=== PATIENT | male | born 1975 | race Caucasian/White ===

== ENCOUNTER 2020-01-16 16:20 | Inpatient (IN) | payer BC ==
[~2020-01-16 16:20] MED LIST: DEXTROSE 5% IN WATER 1,000 ML with POTASSIUM CHLORIDE 110 MEQ, MAGNESIUM SULFATE 16 MEQ... IV ONE; DEXTROSE 5% IN WATER 1,000 ML with POTASSIUM CHLORIDE 25 MEQ, SODIUM CHLORIDE 2.5MEQ/ML... IV ONE; DILTIAZEM 125 MG in SODIUM CHLORIDE 0.9% 100 ML IV ONE; INSULIN REGULAR 100 UNIT in SODIUM CHLORIDE 0.9% 100 ML IV ONE; NITROGLYCERIN-D5W PMX 50 MG in DEXTROSE/WATER 1 250ML.BAG IV ONE; NOREPINEPHRINE 4 MG in SODIUM CHLORIDE 0.9% 250 ML IV ONE
[2020-01-16] MEDS ORDERED: DEXTROSE 5% IN WATER 50 ML BAG ONE (16:28)
[2020-01-16] MEDS ORDERED: DEXTROSE 5% IN WATER 250 ML BAG IV ONE (16:28)
[2020-01-16] MEDS ORDERED: AMIODARONE 50 MG/ML 3 ML VIAL IV ONE ×2 (16:28)
[2020-01-16] MEDS ORDERED: HEPARIN SODIUM,PORCINE 5,000 UNIT/ML 1 ML VIAL IV STA (16:39)
[2020-01-16] MEDS ORDERED: DEXTROSE 5% IN WATER 100 ML with AMIODARONE 150 MG IV ONE ×2 (16:39→17:30)
[2020-01-16] MEDS ORDERED: ATORVASTATIN 80 MG TAB PO STA (16:40)
--- NOTE | 2020-01-16 16:49 | ED ---
Chest Pain HPI - General Chief Complaint: Chest Pain Stated Complaint: Stemi Time Seen by Provider: 01/16/20 16:23 Source: patient, family, EMS, RN notes reviewed Mode of arrival: EMS Limitations: no limitations - History of Present Illness Initial Comments: Is a 44-year-old male with a benign past medical history other than being a smoker who apparently started having some chest discomfort intermittently yesterday but this morning started having pain which progressed throughout the day while he was at work. We got home he stated the pain was very severe retrosternal he did have some nausea vomiting. EMS was called. In route he did get aspirin and nitroglycerin he did so evidence of hyperacute T waves on his EKG from EMS. By time he got here the initial set normalized. He then went into a witnessed V. fib arrest with about 1 minute of CPR followed by 200 J of fibrillation. He did respond to this. He was awake and alert thereafter. In itial IV med management was performed. A STEMI alert was called. MD Complaint: chest pain - Related Data Home Medications Medication Instructions Recorded Confirmed No Known Home Medications 01/16/20 01/16/20 Allergies Allergy/AdvReac Type Severity Reaction Status Date / Time No Known Allergies Allergy Verified 01/16/20 16:48 Review of Systems ROS Statement: Those systems with pertinent positive or pertinent negative responses have been documented in the HPI. ROS Other: All systems not noted in ROS Statement are negative. EKG Findings - EKG Results: EKG: interpreted by ERMD, sinus rhythm (Initial EKG showed a sinus rhythm with 54 NJ interval 140 QRS duration 92 QT since QTC 476/451 nonspecific T-wave configuration evidence of inferior ischemia. This is different than those submitted by EMS.) General Exam - General Exam Comments Initial Comments: This is a well-developed well-nourished initially awake alert oriented 3 male Limitations: no limitations General appearance: alert, anxious Head exam: Present: atraumatic, normocephalic, normal inspection Eye exam: Present: normal appearance, PERRL, EOMI. Absent: scleral icterus, conjunctival injection, periorbital swelling ENT exam: Present: normal exam, mucous membranes moist Neck exam: Present: normal inspection. Absent: tenderness, meningismus, lymphadenopathy Respiratory exam: Present: normal lung sounds bilaterally. Absent: respiratory distress, wheezes, rales, rhonchi, stridor Cardiovascular Exam: Present: normal rhythm, bradycardia, normal heart sounds. Absent: systolic murmur, diastolic murmur, rubs, gallop, clicks GI/Abdominal exam: Present: soft, normal bowel sounds. Absent: distended, tenderness, guarding, rebound, rigid Extremities exam: Present: normal inspection, full ROM, normal capillary refill. Absent: tenderness, pedal edema, joint swelling, calf tenderness Back exam: Present: normal inspection Neurological exam: Present: alert, oriented X3, CN II-XII intact Psychiatric exam: Present: normal affect, normal mood Skin exam: Present: warm, dry, intact, normal color. Absent: rash Course Vital Signs 01/16/20 01/16/20 01/16/20 16:21 16:37 16:45 Temperature 97.9 F Pulse Rate 58 L 68 62 Respiratory 18 18 18 Rate Blood Pressure 126/88 140/101 133/92 O2 Sat by Pulse 100 100 100 Oximetry - Reevaluation(s) Reevaluation #1: 01/16/20 16:52 The patient during my initial exam was noted to become unresponsive and on a monitor. Be an ventricular fibrillation arrest. CPR was initially started patient was defibrillated after about a minute using 200 J. CPR was continued the patient however did awaken and did try to get up off the emergency department stretcher. He was placed back in a supine position he was awake alert oriented 3. Reevaluation #2: 01/16/20 16:53 I did discuss the case both with Dr. Foster, Dr. Kong both of whom came to the emergency department and Dr. Justice. Patient will be going to the catheterization lab. Patient's is present. 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 Chest Pain MDM - MDM Did review the imaging no definite acute findings. Labs are pending. Patient remains awake alert oriented 3. Sclerae some chest pain however he is a sinus rhythm. Repeat EKG after the defibrillation showed a sinus rhythm a 72. Interval 154 QRS 94 QT since QTC 364/[address] elevation anterior lateral leads. This is consistent with acute ID/STEMI Critical Care Time Critical Care Time: Yes Critical Care Time: 34 minutes of critical care time which includes initial presentation with history physical labs x-rays of the CPR and defibrillation as well as discussed the wall. Physicians. Also included discussion with the patient family regarding findings. Documentation of the above. Disposition Clinical Impression: ST elevation myocardial infarction (STEMI), Cardiac arrest with ventricular fibrillation, Acute coronary syndrome Disposition: ADMITTED IP TO THIS HOSP Condition: Critical
[2020-01-16 16:51] LABS: Basophils # (A) 0.1 k/uL (0-0.2); Basophils % (A) 1 %; Eosinophils # (A) 0.1 k/uL (0-0.7); Eosinophils % (A) 1 %; HCT 45.9 % (39.0-53.0); HGB 14.9 gm/dL (13.0-17.5); Lymphocytes # (A) 4.6 k/uL (1.0-4.8); Lymphocytes % (A) 50 %; MCH 31.2 pg (25.0-35.0); MCHC 32.5 g/dL (31.0-37.0); MCV 95.8 fL (80.0-100.0); Mean Platelet Volume 8.2; Monocytes # (A) 0.5 k/uL (0-1.0); Monocytes % (A) 5 %; Neutrophils # (A) 3.8 k/uL (1.3-7.7); Neutrophils % (A) 41 %; Platelet Count 241 k/uL (150-450); RBC 4.79 m/uL (4.30-5.90); RDW 12.9 % (11.5-15.5); WBC 9.3 k/uL (3.8-10.6)
[2020-01-16] MEDS ORDERED: LIDOCAINE 1% INJ 10MG/ML (20 ML MDV) ONE (16:55)
--- NOTE | 2020-01-16 16:57 | XR ---
EXAMINATION TYPE: XR chest 1V DATE OF EXAM: 01/16/2020 COMPARISON: NONE HISTORY: Chest pain. ST elevated myocardial infarction. TECHNIQUE: Single AP portable frontal upright view of the chest is obtained. FINDINGS: Overlying EKG leads. There is no focal air space opacity, pleural effusion, or pneumothora x seen. The cardiac silhouette size is within normal limits. The osseous structures are intact. IMPRESSION: No acute process.
[2020-01-16] MEDS ORDERED: SODIUM CHLORIDE 0.9% 1,000 ML IV ONE (17:04)
[2020-01-16] MEDS ORDERED: LIDOCAINE 1% INJ 10MG/ML (20 ML MDV) SQ ONE (17:05)
[2020-01-16] MEDS ORDERED: MIDAZOLAM 2 MG/2 ML VIAL IVP ONE (17:06)
--- NOTE | 2020-01-16 17:07 | P.CRDCN ---
History of Present Illness History of present illness: This is Kori Horowitz PA-C dictating a consult on this patient The patient was interviewed and examined by me as well as by Dr. Foster Case discussed with Dr. Foster and he agrees with the plan of care HPI Patient is a 44-year-old male with a history of smoking and alcohol use who presented with complaints of chest discomfort. He states that yesterday he started feeling intermittent chest discomfort which progressively became more severe. This morning when he went to work he began again and it became unbearable so he called EMS. Initial EKG revealed hyperacute T waves in the precordial leads. EKG upon arrival to the emergency department showed ST elevation in V2 and T-wave inversions in lead 3 and aVF. In the emergency department he had a V. fib VF arrest and a 200 J shock was given. Subsequent EKG showed ST elevation in the precordial leads and ST depression inferiorly. Patient seen and examined in the emergency department. States he is still having chest pain. Patient denies history of diabetes or hypertension, denies history of CAD or prior [place] He is a current smoker states he does drink alcohol daily ROS: No fevers, chills or rigors, no cough, phlegm or expectoration, no nausea, vomiting or diarrhea, no hematuria, dysuria, no musculoskeletal complaints, no strokes or seizures, no skin lesions. EXAMINATION: Patient is afebrile, pulse in the 60s, respirations 18, blood pressure 133/92, oxygen saturation 100% on room air Patient seen and examined in the emergency department, appears uncomfortable Lungs are rhonchorous bilaterally Heart is regular, no audible murmurs REVIEW OF LABS, ECG & MEDICAL DATA WBC 9.3, hemoglobin 14.9, platelets 241 IMPRESSION / ASSESSMENT: #[address] elevation [place] #2 ventricular fibrillation status post successful defibrillation #3 current smoker #4 daily alcohol use PLAN: He will undergo emergent cardiac catheterization He is on heparin He has been given statins, aspirin and beta blockers Medications and Allergies Home Medications Medication Instructions Recorded Confirmed Type No Known Home Medications 01/16/20 01/16/20 History Allergies Allergy/AdvReac Type Severity Reaction Status Date / Time No Known Allergies Allergy Verified 01/16/20 16:48 Physical Exam Vitals: Vital Signs Temp Pulse Resp BP Pulse Ox 01/16/20 16:45 62 18 133/92 100 01/16/20 16:37 68 18 140/101 100 01/16/20 16:21 97.9 F 58 L 18 126/88 100 Intake and Output 01/16/20 01/16/20 01/16/20 06:59 14:59 22:59 Other: Weight 80.739 kg Results 01/16/20 16:46 CBC 01/16/20 Range/Units 16:46 WBC 9.3 (3.8-10.6) k/uL RBC 4.79 (4.30-5.90) m/uL Hgb 14.9 (13.0-17.5) gm/dL Hct 45.9 (39.0-53.0) % Plt Count 241 (150-450) k/uL Intake and Output 01/16/20 01/16/20 01/16/20 06:59 14:59 22:59 Other: Weight 80.739 kg Patient Weight 01/17/20 06:59 Weight 80.739 kg 01/16/20 16:46
[2020-01-16] MEDS ORDERED: fentaNYL (PF) 50 MCG/ML 2 ML AMP ONE (17:08)
[2020-01-16] MEDS ORDERED: fentaNYL (PF) 50 MCG/ML 2 ML AMP IVP ONE (17:09)
[2020-01-16] MEDS ORDERED: SODIUM CHLORIDE 0.9% 500 ML 500 ML IV ONE (17:11)
[2020-01-16 17:12] LABS: ALT 26 U/L (4-49); AST 24 U/L (17-59); African American GFR (CKD) >90 (>60 ml/min/1.73 sqM); Alkaline Phosphatase 56 U/L (38-126); Anion Gap 11 mmol/L; Blood Urea Nitrogen 10 mg/dL (9-20); Calcium 8.9 mg/dL (8.4-10.2); Carbon Dioxide 21 mmol/L (22-30); Chloride 104 mmol/L (98-107); Glucose 118 mg/dL (74-99); Magnesium 2.1 mg/dL (1.6-2.3); Non-African American GFR(CKD) >90 (>60 ml/min/1.73 sqM); Potassium 3.3 mmol/L (3.5-5.1); Sodium 136 mmol/L (137-145); Total Bilirubin 0.9 mg/dL (0.2-1.3); Total Protein 6.7 g/dL (6.3-8.2)
[2020-01-16 17:18] LABS: D-Dimer 0.24 mg/L FEU (<0.60); Partial Thromboplastin Time 22.3 sec (22.0-30.0); Prothrombin Time 10.1 sec (9.0-12.0)
[2020-01-16] MEDS ORDERED: POTASSIUM CHLORIDE 20 MEQ in WATER FOR INJECTION 1 100ML.BAG IVPB STA ×2 (17:29→17:46)
[2020-01-16] MEDS ORDERED: HEPARIN SODIUM,PORCINE 5,000 UNIT/ML 1 ML VIAL IV PRN (17:37)
[2020-01-16] MEDS ORDERED: IOPAMIDOL-370 100ML BTL INJ ONE (17:40)
[2020-01-16 17:42] LABS: Creatine Kinase MB 0.5 ng/mL (0.0-2.4); Troponin I 0.029 ng/mL (0.000-0.034)
[2020-01-16] MEDS ORDERED: HEPARIN SOD,PORK IN 0.45% NACL 25,000 UNIT in 0.45% NACL 1 250ML.BAG IV SCH (17:45)
[2020-01-16] MEDS ORDERED: HEPARIN SODIUM 1,000 UN/ML (10ML VL) IV ONE (17:45)
[2020-01-16] MEDS ORDERED: AMIODARONE 360 MG in DEXTROSE 5% IN WATER 200 ML IV ONE ×2 (17:45)
[2020-01-16 18:06] LABS: Glucose,Whole Blood 87 mg/dL (75-99)
[2020-01-16] MEDS ORDERED: MD COMMUNICATION TO PHARMACY 1 EACH MISC PO ONE ×4 (18:20→18:26)
[2020-01-16] MEDS ORDERED: ACETAMINOPHEN TAB 325 MG TAB PO PRN (18:31)
[2020-01-16] MEDS ORDERED: MELATONIN 3 MG TABLET PO PRN (18:31)
[2020-01-16] MEDS ORDERED: ALPRAZolam 0.25 MG TAB PO PRN (18:31)
[2020-01-16] MEDS ORDERED: NALOXONE 0.4 MG/ML 1 ML VIAL IV PRN (18:31)
[2020-01-16] MEDS: SODIUM CHLORIDE 0.9% 1,000 ML IV SCH (18:49)
[2020-01-16] MEDS ORDERED: LORazepam 2 MG/ML INJ IV PRN (18:50)
[2020-01-16] MEDS ORDERED: THIAMINE 100 MG/ML 2 ML VIAL IM STA (18:50)
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
--- NOTE | 2020-01-16 19:09 | CC ---
CARDIAC CATHETERIZATION REPORT DATE OF SERVICE: 01/16/2020 PROCEDURE: Left heart catheterization and coronary angiography. PERFORMED BY: Dr. Danita Kong. Moderate conscious sedation time was 40 minutes. Patient was administered Versed and fentanyl. His oxygenation, hemodynamics and EKG were monitored closely. CLINICAL INFORMATION: Mr. 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 He presented to the hospital with chest pain, and in the ER while he was being evaluated he went into ventricular fibrillation requiring to be shocked. He had prominent precordial T- waves, and after the defibrillation his EKG almost normalized completely. Ischemia was thought to be suspected. Based on the EKG it was somewhat unclear. He was advised prompt cardiac catheterization and brought in for the procedure expeditiously. Risks, benefits and options were discussed with the patient's and the patient himself. PROCEDURE NOTE: Under local anesthesia and strict aseptic precautions, a 6-Kiswahili introducer was placed in the right femoral artery. Using standard right and left Kaylen guide catheters, I performed coronary angiography. Using the same right Kaylen catheter, I checked LV pressures but did not perform LV gram. The sheath was then sutured and he was sent to the ICU on a heparin drip and amiodarone drip in preparation for aortocoronary bypass surgery tomorrow morning. An echo and carotid Doppler will be performed tonight. CARDIAC CATHETERIZATION FINDINGS: The left ventricular end-diastolic pressure was about 14 mmHg without any gradient across the aortic valve. CORONARY ANGIOGRAPHY FINDINGS: RIGHT CORONARY ARTERY: This is a super dominant vessel which is large in caliber and distribution and distally bifurcates into a large PDA and PLV. RCA has no significant disease in the proximal, mid and distal portions. After bifurcation the PLV branch has a 70% to 80% focal lesion, and beyond this lesion there is a lot of myocardium being supplied with the PLV branch. PDA has about a 30% to 35% narrowing. Right coronary is a super dominant vessel. LEFT MAIN CORONARY ARTERY: This is a short patent vessel, free of significant disease, that bifurcates into LAD and circumflex. LEFT ANTERIOR DESCENDING CORONARY ARTERY: This vessel tarts off as a good-caliber vessel, gives off a large septal branch. Then there is a 60% narrowing in the LAD. It gives off a first diagonal branch which is of fair caliber, has an ostial lesion of 70%, and then the diagonal bifurcates into 2 branches. After the origin of a large septal branch, which is relatively disease-free, there is a 60% LAD disease, then it gives off a first diagonal which has an ostial 70% lesion. Following the first diagonal branch there is a long area of disease with haziness in the LAD and then it gives off a second large diagonal branch. This second large diagonal branch has an independent 90% lesion and the LAD also after the diagonal branch has an independent 80% to 90% lesion. There is haziness with some thrombus, but there is a pretty decent CORNELIA-3 flow in both the vessels. LAD is a large-distribution vessel. Caliber in the distal fourth of the LAD is somewhat smaller and gives off another 2 small diagonal branches. The second diagonal is a very large vessel, supplies a large amount of myocardium. Caliber is at least 2.5 to 3.0 caliber. There is an independent lesion in this diagonal and also in the LAD after the origin of the diagonal, and before the diagonal there is a long area of disease of 80% with haziness. The first diagonal, which is smaller, and second diagonal as well as the LAD are 3 graftable vessels of decent caliber. LEFT POSTERIOR CIRCUMFLEX CORONARY ARTERY: This is a nondominant vessel. Actually it gives off a first obtuse marginal which almost looks like a ramus, and this ramus has an independent long 80% to 85% lesion, and the vessel is of good caliber and graftable. The circumflex itself runs in the AV groove, is small in caliber and distribution, has limited myocardium being supplied by it. Left ventriculogram was not performed. FINAL IMPRESSION: This patient has significant diffuse triple-vessel disease. He presented with acute ischemia, ventricular fibrillation, and sinus rhythm was restored. He is hemodynamically stable. EKG has normalized. He has no chest pain. There is, however, significant lesion in the LAD. This is a highly diseased vessel. There is a 50% to 60% lesion after the first septal, first diagonal has an independent 70% lesion, then there is a long disease in the LAD of 80% to 90%, and LAD after the origin of the second diagonal and the second diagonal itself at its origin have 80% lesion individually. The ramus intermedius has a very tight lesion. Circumflex is small in caliber and distribution with no significant disease. The dominant RCA has a large PLV branch with 80% stenosis. RECOMMENDATIONS: After substantial deliberation and discussion, I am recommending aortocoronary bypass surgery with graft to the first diagonal, second diagonal, LAD, ramus intermedius and PLV branch of a super dominant RCA. The patient is pain-free, hemodynamically stable. EKG is normal. There is CORNELIA-3 flow. We can safely heparinize him through the night, place him on an amiodarone drip in view of his ventricular arrhythmias, supplement the potassium and check an echo and carotid tonight. He will benefit from aortocoronary bypass surgery with a complete revascularization, including LAD. I discussed my thoughts in detail with the patient and his and I also talked to Dr. Lorenz. He will review the images at the earliest possibility and will consider surgery first thing in the morning. Should patient have any ischemia tonight, he already has a sheath in place that I have sutured. I will proceed with immediate percutaneous intervention. This plan was discussed with the patient, his , daughter and with Dr. Lorenz, and they are all in agreement. The patient was sent to the ICU in a stable condition. MMODL / IJN: [id number] /
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
[2020-01-16 20:00] LABS: Magnesium 1.9 mg/dL (1.6-2.3)
[2020-01-16 20:57] LABS: Appearance,Urine Clear (Clear); Bilirubin,Urine Negative (Negative); Blood,Urine Negative (Negative); Color,Urine Light Yellow; Glucose,Urine (UA) Negative (Negative); Ketones,Urine Negative (Negative); Leukocyte Esterase,Urine Negative (Negative); Nitrite,Urine Negative (Negative); PH, Urine 5.5 (5.0-8.0); Protein,Urine Trace (Negative); Specific Gravity,Urine 1.032 (1.001-1.035); Urobilinogen,Urine <2.0 mg/dL (<2.0)
[2020-01-16] MEDS: FOLIC ACID 1 MG TAB PO SCH (21:00)
[2020-01-16] MEDS ORDERED: MUPIROCIN 2% OINT 22 GM TUBE NASAL SCH (21:00)
[2020-01-16] MEDS: PANTOPRAZOLE 40 MG TABLET PO STA ×2 (21:00→21:01)
[2020-01-16] MEDS ORDERED: METOPROLOL TARTRATE 12.5 MG TAB PO SCH (21:00)
[2020-01-16] MEDS: POTASSIUM CHLORIDE 10 MEQ in WATER FOR INJECTION 1 100ML.BAG IVPB SCH ×2 (21:19→22:16)
[2020-01-16] MEDS: HYDROcodone/APAP 5-325MG 1 EACH TAB PO PRN (21:38)
--- NOTE | 2020-01-16 21:52 | US ---
EXAMINATION TYPE: US carotid duplex BILAT DATE OF EXAM: 01/16/2020 COMPARISON: NONE CLINICAL HISTORY: BYPASS SURGERY IN AM. Bypass surgery in the AM. Smoker. EXAM MEASUREMENTS: RIGHT: Peak Systolic Velocity (PSV) cm/sec ----- Right CCA: 69.9 ----- Right ICA: 78.8 ----- Right ECA: 69.2 ICA/CCA ratio: 1.1 RIGHT: End Diastole cm/sec ----- Right CCA: 25.9 ----- Right ICA: 36.9 ----- Right ECA: 18.6 LEFT: Peak Systolic Velocity (PSV) cm/sec ----- Left CCA: 56.4 ----- Left ICA: 69.2 ----- Left ECA: 56.4 ICA/CCA ratio: 1.2 LEFT: End Diastole cm/sec ----- Left CCA: 16.6 ----- Left ICA: 27.3 ----- Left ECA: 13.7 VERTEBRALS (direction of flow): Right Vertebral: Antegrade Left Vertebral: Antegrade Rhythm: Normal IMPRESSION: INTIMAL THICKENING SEEN BILATERALLY. NO ELEVATED VELOCITIES; NO SIGNIFICANT STENOSIS. INCIDENTAL FINDING LEFT SOFT TISSUES NECK: Hypoechoic area seen left neck measurin.2 CC x 1.2 x 1.0 cm, likely small conglomerate lymph node s. Would advise continued clinical surveillance. If palpable and persistent, CT with contrast charact erization would be advisable.
[2020-01-16] MEDS: AMIODARONE 300 MG in DEXTROSE 5% IN WATER 250 ML IV SCH ×2 (23:17)
[2020-01-17] MEDS: HYDROcodone/APAP 5-325MG 1 EACH TAB PO PRN (01:02)
[2020-01-17] MEDS: LORazepam 2 MG/ML INJ IV PRN (03:14)
[2020-01-17 04:23] LABS: Hepatitis A Antibody IgM Non-Reactive (Non-Reactive); Hepatitis B Core IgM Non-Reactive (Non-Reactive); Hepatitis B Surface Antigen Non-Reactive (Non-Reactive); Hepatitis C IgG Antibody Non-Reactive (Non-Reactive)
[2020-01-17 04:58] LABS: Basophils % (A) 0 %; Eosinophils # (A) 0.1 k/uL (0-0.7); Eosinophils % (A) 2 %; HCT 41.7 % (39.0-53.0); HGB 13.3 gm/dL (13.0-17.5); Lymphocytes # (A) 1.9 k/uL (1.0-4.8); Lymphocytes % (A) 25 %; MCV 96.9 fL (80.0-100.0); Mean Platelet Volume 8.3; Monocytes # (A) 0.3 k/uL (0-1.0); Monocytes % (A) 4 %; Neutrophils % (A) 68 %; Platelet Count 208 k/uL (150-450); RBC 4.31 m/uL (4.30-5.90); WBC 7.4 k/uL (3.8-10.6)
[2020-01-17] MEDS ORDERED: PROTAMINE SULFATE 10 MG/ML 25 ML VIAL IV ONE ×2 (05:00→07:31)
[2020-01-17] MEDS ORDERED: TRANEXAMIC ACID 2,000 MG in SODIUM CHLORIDE 0.9% 80 ML IV ONE (05:00)
[2020-01-17] MEDS ORDERED: NITROGLYCERIN-D5W PMX 25 MG/250 ML BTL IV ONE (05:00)
[2020-01-17] MEDS ORDERED: ALBUMIN HUMAN 5% 500 ML in EMPTY BAG 1 BAG IVPB ONE ×6 (05:00)
[2020-01-17] MEDS ORDERED: CHLORHEXIDINE GLUCONATE 15 ML CUP MUCOUS MEM ONE (05:00)
[2020-01-17] MEDS ORDERED: PAPAVERINE 360 MG in SODIUM CHLORIDE 0.9% 90 ML IV ONE ×2 (05:00→09:55)
[2020-01-17] MEDS ORDERED: METOPROLOL TARTRATE 12.5 MG TAB PO ONE (05:00)
[2020-01-17] MEDS ORDERED: PROTAMINE SULFATE 250 MG in EMPTY BAG 1 BAG IV ONE (05:00)
[2020-01-17] MEDS ORDERED: ATORVASTATIN 10 MG TAB PO ONE (05:00)
[2020-01-17] MEDS ORDERED: HEPARIN SODIUM 1,000 UN/ML (10ML VL) IV ONE (05:00)
[2020-01-17] MEDS ORDERED: ceFAZolin 2 GM in SODIUM CHLORIDE 0.9% 30 ML IVPB ONE (05:00)
[2020-01-17] MEDS ORDERED: HEPARIN SODIUM,PORCINE 5,000 UNIT in SODIUM CHLORIDE 0.9% 500 ML 500 ML IV ONE (05:00)
[2020-01-17] MEDS ORDERED: PHENYLEPHRINE 40 MG in SODIUM CHLORIDE 0.9% 250 ML IV ONE (05:00)
[2020-01-17] MEDS ORDERED: CLEVIDIPINE BUTYRATE 25 MG in EMPTY BAG 1 BAG IV SCH ×2 (05:00→15:43)
[2020-01-17] MEDS ORDERED: MAGNESIUM SULFATE SYG 4.06 MEQ/ML SYRINGE IV ONE (05:00)
[2020-01-17] MEDS ORDERED: ASPIRIN 325 MG TAB PO ONE (05:00)
[2020-01-17] MEDS ORDERED: MANNITOL 25% 12.5 GM/50 ML VIAL IV ONE ×2 (05:00)
[2020-01-17] MEDS ORDERED: CALCIUM CHLORIDE 100 MG/ML 10 ML SYRINGE IVP ONE (05:00)
[2020-01-17] MEDS ORDERED: ceFAZolin 1,000 MG in SODIUM CHLORIDE 0.9% IRRIGATIO 1,000 ML IRRIGATION ONE (05:00)
[2020-01-17] MEDS ORDERED: SODIUM BICARB 8.4% 50 ML SYR (1 MEQ/ML) IV ONE (05:00)
[2020-01-17] MEDS ORDERED: ceFAZolin 2,000 MG in SODIUM CHLORIDE 0.9% 30 ML IVPB ONE (05:00)
[2020-01-17] MEDS ORDERED: ALBUMIN HUMAN 25% 50 ML in EMPTY BAG 1 BAG IVPB ONE (05:00)
[2020-01-17 05:08] LABS: ALT 35 U/L (4-49); AST 56 U/L (17-59); African American GFR (CKD) >90 (>60 ml/min/1.73 sqM); Albumin 3.2 g/dL (3.5-5.0); Alkaline Phosphatase 53 U/L (38-126); Anion Gap 1 mmol/L; Blood Urea Nitrogen 7 mg/dL (9-20); Carbon Dioxide 24 mmol/L (22-30); Chloride 110 mmol/L (98-107); Cholesterol 169 mg/dL (<200); Glucose 104 mg/dL (74-99); HDL Cholesterol 44 mg/dL (40-60); LDL Cholesterol,Calculated 112 mg/dL (0-99); Non-African American GFR(CKD) >90 (>60 ml/min/1.73 sqM); Phosphorus 2.9 mg/dL (2.5-4.5); Potassium 4.3 mmol/L (3.5-5.1); Sodium 135 mmol/L (137-145); Total Bilirubin 1.4 mg/dL (0.2-1.3); Total Protein 5.7 g/dL (6.3-8.2); Triglycerides 63 mg/dL (<150)
[2020-01-17] MEDS ORDERED: PANTOPRAZOLE 40 MG TABLET PO SCH (07:30)
[2020-01-17] MEDS ORDERED: MAGNESIUM SULFATE 4 MEQ/ML 10ML VIAL ONE (07:31)
[2020-01-17] MEDS ORDERED: fentaNYL (PF) 50 MCG/ML 50 ML VIAL ONE (07:31)
[2020-01-17] MEDS ORDERED: PROPOFOL 10 MG/ML 20 ML VIAL IV ONE (07:31)
[2020-01-17] MEDS ORDERED: LIDOCAINE 2% SYG (PF) 100 MG/5 ML ONE (07:31)
[2020-01-17] MEDS ORDERED: NITROGLYCERIN-D5W PMX 50 MG/250 ML BOTTLE IV ONE (07:31)
[2020-01-17] MEDS ORDERED: TRANEXAMIC ACID 1,000 MG/10 ML VIAL ONE (07:31)
[2020-01-17] MEDS ORDERED: MIDAZOLAM 2 MG/2 ML VIAL ONE (07:31)
[2020-01-17] MEDS ORDERED: ELECTROLYTE-R (PH 7.4) 1,000 ML IV.SOLN IV ONE (07:31)
[2020-01-17] MEDS ORDERED: PHENYLEPHRINE-0.9% NACL SYG 1 MG/10 ML SYRINGE ONE (07:31)
[2020-01-17] MEDS ORDERED: CALCIUM CHLORIDE 100 MG/ML 10 ML SYRINGE ONE (07:31)
[2020-01-17] MEDS ORDERED: fentaNYL (PF) 50 MCG/ML 2 ML AMP ONE (07:31)
[2020-01-17] MEDS ORDERED: VECURONIUM 10 MG VIAL IV ONE (07:31)
[2020-01-17] MEDS ORDERED: SODIUM CHLORIDE 0.9% 1,000 ML BAG ONE (07:31)
[2020-01-17] MEDS ORDERED: ePHEDrine SULFATE/0.9% NACL/PF 50 MG/5 ML SYRINGE IV ONE (07:31)
[2020-01-17] MEDS ORDERED: SODIUM CHLORIDE 0.9% 250 ML BAG ONE (07:31)
[2020-01-17] MEDS ORDERED: HEPARIN SODIUM,PORCINE 10,000 UNIT/ML 1 ML VIAL ONE (07:31)
[2020-01-17] MEDS ORDERED: ALBUMIN HUMAN 5% (25gm) 500 ML VIAL IVPB ONE (07:31)
[2020-01-17] MEDS ORDERED: POTASSIUM CHLORIDE OPEN HEART 20 MEQ/50 ML BAG IVPB ONE (07:31)
[2020-01-17] MEDS ORDERED: ATORVASTATIN 80 MG TAB PO SCH (09:00)
[2020-01-17 09:01] LABS: ABG Base Excess -3.2 mmol/L; ABG Glucose Whole Blood 104 mg/dL (75-99); ABG HCO3 22 mmol/L (21-25); ABG Hematocrit 41 % (34.0-46.0); ABG Ionized Calcium 4.7 mg/dL (4.5-5.3); ABG Lactic Acid Whole Blood 0.6 mmol/L (0.5-1.6); ABG PCO2 40 mmHg (35-45); ABG PH 7.35 (7.35-7.45); ABG Potassium Whole Blood 3.9 mmol/L (3.4-4.5); ABG Sodium Whole Blood 139 mmol/L (135-146); ABG TCO2 23 mmol/L (19-24)
[2020-01-17] MEDS ORDERED: SODIUM CHLORIDE 0.9% 500 ML 500 ML with HEPARIN SODIUM,PORCINE 5,000 UNIT IV ONE ×2 (09:55)
[2020-01-17] MEDS ORDERED: ceFAZolin 1,000 MG in SODIUM CHLORIDE 0.9% 1,000 ML IRRIGATION ONE (09:55)
--- NOTE | 2020-01-17 10:00 | ECHOF ---
Referral Reason:BYPASS SURGERY IN AM MEASUREMENTS -------- HEIGHT: 185.4 cm WEIGHT: 80.7 kg BP: 132/93 RVIDd: 3.2 cm (< 3.3) IVSd: 1.2 cm (0.6 - 1.1) LVIDd: 4.6 cm (3.9 - 5.3) LVPWd: 1.1 cm (0.6 - 1.1) IVSs: 1.7 cm LVIDs: 3.1 cm LVPWs: 1.6 cm LA Diam: 3.0 cm (2.7 - 3.8) Ao Diam: 3.8 cm (2.0 - 3.7) AV Cusp: 2.0 cm (1.5 - 2.6) MV EXCURSION: 19.089 mm (> 18.000) MV EF SLOPE: 119 mm/s (70 - 150) EPSS: 0.8 cm MV E Christian: 0.68 m/s MV DecT: 256 ms MV A Christian: 0.55 m/s MV E/A Ratio: 1.23 RAP: 5.00 mmHg RVSP: 28.31 mmHg FINDINGS -------- Sinus rhythm. This was a technically adequate study. The left ventricular size is normal. There is borderline concentric left ventricular hypertrophy. Overall left ventricular systolic function is mild-moderately impaired with, an EF between 40 - 45 % . Apical anterior LV wall motion is hypokinetic. Apical lateral LV wall motion is hypokinetic. Apical inferior LV wall motion is hypokinetic. Apical septum LV wall motion is hypokinetic. The right ventricle is normal in size. Normal LA size by volume 22+/-6 ml/m2. The right atrium is normal in size. The aortic valve is trileaflet and appears structurally normal. The mitral valve is normal. Mild tricuspid regurgitation present. Right ventricular systolic pressure is normal at < 35 mmHg. There is no pulmonic regurgitation present. The aortic root is dilated measuring 3.8cm. Normal inferior vena cava with normal inspiratory collapse consistent with estimated right atrial pre ssure of 5 mmHg. There is no pericardial effusion. CONCLUSIONS -------- 1. Sinus rhythm. 2. This was a technically adequate study. 3. The left ventricular size is normal. 4. There is borderline concentric left ventricular hypertrophy. 5. Overall left ventricular systolic function is mild-moderately impaired with, an EF between 40 - 45 %. 6. Apical anterior LV wall motion is hypokinetic. 7. Apical lateral LV wall motion is hypokinetic. 8. Apical inferior LV wall motion is hypokinetic. 9. Apical septum LV wall motion is hypokinetic. 10. Mild tricuspid regurgitation present. 11. Right ventricular systolic pressure is normal at < 35 mmHg. 12. The aortic root is dilated measuring 3.8cm. 13. Normal inferior vena cava with normal inspiratory collapse consistent with estimated right atrial pressure of 5 mmHg. 14. There is no pericardial effusion. [employer] LEAD: Viviana Soni RDCS
[2020-01-17 11:01] LABS: ABG Base Excess -3.3 mmol/L; ABG Glucose Whole Blood 121 mg/dL (75-99); ABG HCO3 22 mmol/L (21-25); ABG Hematocrit 39 % (34.0-46.0); ABG Ionized Calcium 4.7 mg/dL (4.5-5.3); ABG Lactic Acid Whole Blood 0.7 mmol/L (0.5-1.6); ABG Oxygen Saturation 99.2 % (94-97); ABG PCO2 37 mmHg (35-45); ABG PH 7.37 (7.35-7.45); ABG PO2 164 mmHg (83-108); ABG Potassium Whole Blood 4.1 mmol/L (3.4-4.5); ABG Sodium Whole Blood 139 mmol/L (135-146); ABG TCO2 23 mmol/L (19-24)
[2020-01-17 11:48] LABS: ABG Base Excess 0.1 mmol/L; ABG Glucose Whole Blood 111 mg/dL (75-99); ABG HCO3 24 mmol/L (21-25); ABG Hematocrit 31 % (34.0-46.0); ABG Ionized Calcium 4.1 mg/dL (4.5-5.3); ABG Lactic Acid Whole Blood 0.9 mmol/L (0.5-1.6); ABG Oxygen Saturation 99.9 % (94-97); ABG PCO2 36 mmHg (35-45); ABG PH 7.44 (7.35-7.45); ABG Potassium Whole Blood 3.8 mmol/L (3.4-4.5); ABG Sodium Whole Blood 139 mmol/L (135-146); ABG TCO2 25 mmol/L (19-24)
[2020-01-17 12:23] LABS: ABG Base Excess -1.7 mmol/L; ABG Glucose Whole Blood 162 mg/dL (75-99); ABG HCO3 25 mmol/L (21-25); ABG Hematocrit 31 % (34.0-46.0); ABG Ionized Calcium 4.4 mg/dL (4.5-5.3); ABG Lactic Acid Whole Blood 1.1 mmol/L (0.5-1.6); ABG Oxygen Saturation 99.8 % (94-97); ABG PCO2 47 mmHg (35-45); ABG PH 7.33 (7.35-7.45); ABG PO2 246 mmHg (83-108); ABG Potassium Whole Blood 4.5 mmol/L (3.4-4.5); ABG Sodium Whole Blood 137 mmol/L (135-146); ABG TCO2 26 mmol/L (19-24)
[2020-01-17 12:58] LABS: ABG Base Excess -3.5 mmol/L; ABG Glucose Whole Blood 141 mg/dL (75-99); ABG HCO3 23 mmol/L (21-25); ABG Hematocrit 30 % (34.0-46.0); ABG Ionized Calcium 4.5 mg/dL (4.5-5.3); ABG Lactic Acid Whole Blood 1.4 mmol/L (0.5-1.6); ABG Oxygen Saturation 99.7 % (94-97); ABG PCO2 47 mmHg (35-45); ABG PO2 284 mmHg (83-108); ABG Potassium Whole Blood 4.5 mmol/L (3.4-4.5); ABG Sodium Whole Blood 143 mmol/L (135-146); ABG TCO2 24 mmol/L (19-24)
[2020-01-17 13:35] LABS: ABG Base Excess -0.1 mmol/L; ABG Glucose Whole Blood 146 mg/dL (75-99); ABG HCO3 25 mmol/L (21-25); ABG Hematocrit 32 % (34.0-46.0); ABG Ionized Calcium 4.4 mg/dL (4.5-5.3); ABG Lactic Acid Whole Blood 1.3 mmol/L (0.5-1.6); ABG Oxygen Saturation 99.8 % (94-97); ABG PCO2 42 mmHg (35-45); ABG PH 7.38 (7.35-7.45); ABG PO2 263 mmHg (83-108); ABG Potassium Whole Blood 4.4 mmol/L (3.4-4.5); ABG Sodium Whole Blood 139 mmol/L (135-146); ABG TCO2 26 mmol/L (19-24)
[2020-01-17 14:11] LABS: ABG Base Excess -0.5 mmol/L; ABG Glucose Whole Blood 132 mg/dL (75-99); ABG HCO3 25 mmol/L (21-25); ABG Hematocrit 32 % (34.0-46.0); ABG Ionized Calcium 4.4 mg/dL (4.5-5.3); ABG Lactic Acid Whole Blood 1.4 mmol/L (0.5-1.6); ABG Oxygen Saturation 99.9 % (94-97); ABG PCO2 43 mmHg (35-45); ABG PH 7.37 (7.35-7.45); ABG PO2 301 mmHg (83-108); ABG Potassium Whole Blood 4.3 mmol/L (3.4-4.5); ABG Sodium Whole Blood 139 mmol/L (135-146); ABG TCO2 26 mmol/L (19-24)
[2020-01-17 15:17] LABS: ABG Base Excess -0.2 mmol/L; ABG Glucose Whole Blood 107 mg/dL (75-99); ABG HCO3 24 mmol/L (21-25); ABG Hematocrit 30 % (34.0-46.0); ABG Ionized Calcium 4.6 mg/dL (4.5-5.3); ABG Lactic Acid Whole Blood 1.2 mmol/L (0.5-1.6); ABG Oxygen Saturation 99.8 % (94-97); ABG PCO2 36 mmHg (35-45); ABG PH 7.43 (7.35-7.45); ABG PO2 258 mmHg (83-108); ABG Potassium Whole Blood 3.6 mmol/L (3.4-4.5); ABG Sodium Whole Blood 141 mmol/L (135-146); ABG TCO2 25 mmol/L (19-24)
[2020-01-17 15:28] LABS: ABG PO2 >420 mmHg (83-108)
[2020-01-17 15:29] LABS: ABG PO2 >420 mmHg (83-108)
[2020-01-17] MEDS ORDERED: METOCLOPRAMIDE 5 MG/ML 2 ML VIAL IVP PRN (15:43)
[2020-01-17] MEDS ORDERED: BENZOCAINE/MENTHOL LOZENG 1 EACH LOZENGE MUCOUS MEM PRN (15:43)
[2020-01-17] MEDS ORDERED: ONDANSETRON 4 MG/2 ML VIAL IVP PRN (15:43)
[2020-01-17] MEDS ORDERED: Magnesium Replacement Protocol 1 EACH MISC MISCELLANE PRN (15:43)
[2020-01-17] MEDS ORDERED: IPRATROPIUM-ALBUTEROL 3 ML NEB INHALATION PRN (15:43)
[2020-01-17] MEDS ORDERED: AMIODARONE 360 MG in DEXTROSE 5% IN WATER 200 ML IV PRN ×2 (15:43)
[2020-01-17] MEDS ORDERED: ALBUMIN HUMAN 5% 250 ML in EMPTY BAG 1 BAG IVPB PRN (15:43)
[2020-01-17] MEDS ORDERED: Potassium Replacement Protocol 1 EACH MISC MISCELLANE PRN (15:43)
[2020-01-17] MEDS ORDERED: Phosphorus Replacement Protoco 1 EACH MISC MISCELLANE PRN (15:43)
[2020-01-17] MEDS ORDERED: NITROGLYCERIN-D5W PMX 50 MG in DEXTROSE/WATER 1 250ML.BAG IV SCH (15:43)
[2020-01-17] MEDS ORDERED: hydrALAZINE HCL 20 MG/ML 1 ML VIAL IVP PRN (15:43)
[2020-01-17] MEDS ORDERED: INSULIN REGULAR 100 UNIT in SODIUM CHLORIDE 0.9% 100 ML IV SCH (16:00)
[2020-01-17] MEDS ORDERED: CALCIUM GLUCONATE 2 GM in SODIUM CHLORIDE 0.9% 100 ML IVPB PRN (16:15)
[2020-01-17 16:26] LABS: Glucose,Whole Blood 92 mg/dL (75-99)
[2020-01-17] MEDS: IPRATROPIUM-ALBUTEROL 3 ML NEB INHALATION SCH ×3 (16:31→20:06)
[2020-01-17 16:50] LABS: ABG Base Excess -0.2 mmol/L; ABG HCO3 25 mmol/L (21-25); ABG Oxygen Saturation 99.5 % (94-97); ABG PCO2 46 mmHg (35-45); ABG PH 7.35 (7.35-7.45); ABG PO2 288 mmHg (83-108); ABG TCO2 27 mmol/L (19-24); Allen Test Performed? Yes
--- NOTE | 2020-01-17 16:52 | XR ---
EXAMINATION TYPE: XR chest 1V portable DATE OF EXAM: 01/17/2020 COMPARISON: 01/16/2020 HISTORY: Postop cardiac surgery. TECHNIQUE: Single view FINDINGS: There is right jugular catheter with tip in the main pulmonary artery. There is nasogastric tube in the stomach. The endotracheal tube is 6 cm from the tammy. The lungs are clear of consolida tion. There is no pleural effusion or pneumothorax. There is no heart failure. There are sternal wire s. There is a drain over the left cardiac border. There is a drain over the heart. IMPRESSION: Postsurgical changes. No active cardiopulmonary disease. No heart failure.
[2020-01-17 16:59] LABS: Basophils % (A) 0 %; Eosinophils # (A) 0.1 k/uL (0-0.7); Eosinophils % (A) 1 %; HCT 29.4 % (39.0-53.0); Lymphocytes # (A) 1.8 k/uL (1.0-4.8); Lymphocytes % (A) 22 %; MCH 31.4 pg (25.0-35.0); MCHC 32.4 g/dL (31.0-37.0); MCV 96.8 fL (80.0-100.0); Mean Platelet Volume 8.1; Monocytes # (A) 0.3 k/uL (0-1.0); Monocytes % (A) 3 %; Neutrophils % (A) 73 %; RBC 3.04 m/uL (4.30-5.90); WBC 8.2 k/uL (3.8-10.6)
[2020-01-17 17:00] LABS: Ionized Calcium 4.9 mg/dL (4.5-5.3)
[2020-01-17 17:08] LABS: ALT 16 U/L (4-49); AST 42 U/L (17-59); African American GFR (CKD) >90 (>60 ml/min/1.73 sqM); Albumin 2.6 g/dL (3.5-5.0); Alkaline Phosphatase 26 U/L (38-126); Anion Gap 4 mmol/L; Blood Urea Nitrogen 6 mg/dL (9-20); Calcium 7.5 mg/dL (8.4-10.2); Carbon Dioxide 24 mmol/L (22-30); Chloride 111 mmol/L (98-107); Glucose 85 mg/dL (74-99); Magnesium 2.4 mg/dL (1.6-2.3); Non-African American GFR(CKD) >90 (>60 ml/min/1.73 sqM); Potassium 3.9 mmol/L (3.5-5.1); Sodium 139 mmol/L (137-145); Total Bilirubin 1.2 mg/dL (0.2-1.3); Total Protein 4.1 g/dL (6.3-8.2)
[2020-01-17 17:09] LABS: Glucose,Whole Blood 93 mg/dL (75-99)
[2020-01-17 17:09] LABS: INR 1.3 (<1.2); Prothrombin Time 13.1 sec (9.0-12.0)
[2020-01-17 17:11] LABS: HGB 9.5 gm/dL (13.0-17.5); Platelet Count 102 k/uL (150-450)
--- NOTE | 2020-01-17 17:14 | P.PN ---
Subjective Progress Note Date: 01/17/20 Principal diagnosis: chest pain Patient is a 44 yo CM with a hx of tobacco abuse, ETOH regular use, and chronic back pain who presented to the ER via EMS due to chest pain. EMS patient is on have ST segment elevation. A code STEMI was called upon arrival to the ER. He went into a V fib arrest with 2 minutes of CPR and defib wiht ROSC. 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 He was admitted to the ICU and Dr. Lorenz was consulted for possible open heart surgery. He underwent 5 vessel CABG on 01/16. He returned to the ICU and is currently paced, intubated, CT and mediastinal Chest tube in placed. Patient seen and examined at bedside. Still sedated and intubated. present at bedside all questions answered. Objective - Vital Signs Vital signs: Vital Signs Temp 98 F 01/17/20 05:24 Pulse 70 01/17/20 16:41 Resp 18 01/17/20 16:41 BP 144/94 01/17/20 07:00 Pulse Ox 98 01/17/20 07:00 Intake & Output 01/16/20 01/17/20 01/17/20 18:59 06:59 18:59 Intake Total 270 1163.947 82 Output Total 1725 4200 Balance 270 -561.053 -4118 Weight 84.2 kg 82.6 kg Intake: IV 145 1100 82 Potassium Chloride 10 meq 200 In Water For Injection 1 100ml.bag @ 100 mls/hr IVPB Q1H AAYUSH Rx#: [id number] normal saline 75ml/hour 900 75 Intake, IV Titration 125 63.947 Amount Heparin Sod,Pork in 0.45% 63.947 NaCl 25,000 unit In 0.45 % NaCl 1 250ml.bag @ 12 UNITS/KG/HR 9.689 mls/hr IV .Q24H AAYUSH Rx#: [id number] Potassium Chloride 20 meq 50 In Water For Injection 1 100ml.bag @ 50 mls/hr IVPB ONCE STA Rx#: [id number] Sodium Chloride 0.9% 1, 75 000 ml @ 75 mls/hr IV . [id number] AAYUSH Rx#:[id number] Output: Urine 1725 2200 Estimated Blood Loss 2000 Other: Voiding Method Urinal # Voids 1 ABP, PAP, CO, CI - Last Documented Arterial Blood Pressure 150/81 - Exam General: ill appearing, sedated on vent, appears at stated age Derm: bilateral jose enrique wraps in placed, warm, dry Head: atraumatic, normocephalic, symmetric Mouth: no lip lesion, mucus membranes moist Cardiovascular: S1S2 reg, no murmur, positive posterior tibial pulse bilateral, Lungs: Course bs bilateral, no rhonchi, no rales , no accessory muscle use, CT in place bilateral, mediastinal tubes in place, ET tube in place Abdominal: soft, nontender to palpation, no guarding, no appreciable organomegaly Ext: no gross muscle atrophy, no edema, no contractures Neuro: sedated on vent Psych: sedated on vent - Labs CBC & Chem 7: 01/17/20 04:30 01/17/20 04:30 Labs: Abnormal Lab Results - Last 24 Hours (Table) 01/16/20 01/16/20 01/16/20 Range/Units 16:44 18:43 20:22 APTT (22.0-30.0) sec ABG pH (7.35-7.45) ABG pCO2 (35-45) mmHg ABG pO2 (83-108) mmHg ABG Total CO2 (19-24) mmol/L ABG O2 Saturation (94-97) % ABG Hematocrit (34.0-46.0) % ABG Ionized Calcium (4.5-5.3) mg/dL ABG Glucose (75-99) mg/dL Hemoglobin (13.0-17.5) gm/dL Sodium 136 L (137-145) mmol/L Potassium 3.3 L (3.5-5.1) mmol/L Chloride (98-107) mmol/L Carbon Dioxide 21 L (22-30) mmol/L BUN (9-20) mg/dL Glucose 118 H (74-99) mg/dL Calcium (8.4-10.2) mg/dL Total Bilirubin (0.2-1.3) mg/dL Troponin I (0.000-0.034) ng/mL Total Protein (6.3-8.2) g/dL Albumin (3.5-5.0) g/dL LDL Cholesterol, Calc (0-99) mg/dL Arterial Blood Glucose (75-99) mg/dL Urine Protein Trace H (Negative) Crossmatch See Detail 01/16/20 01/17/20 01/17/20 Range/Units 21:50 00:50 04:30 APTT 34.6 H (22.0-30.0) sec ABG pH (7.35-7.45) ABG pCO2 (35-45) mmHg ABG pO2 (83-108) mmHg ABG Total CO2 (19-24) mmol/L ABG O2 Saturation (94-97) % ABG Hematocrit (34.0-46.0) % ABG Ionized Calcium (4.5-5.3) mg/dL ABG Glucose (75-99) mg/dL Hemoglobin (13.0-17.5) gm/dL Sodium 135 L (137-145) mmol/L Potassium (3.5-5.1) mmol/L Chloride 110 H (98-107) mmol/L Carbon Dioxide (22-30) mmol/L BUN 7 L (9-20) mg/dL Glucose 104 H (74-99) mg/dL Calcium 8.0 L (8.4-10.2) mg/dL Total Bilirubin 1.4 H (0.2-1.3) mg/dL Troponin I 3.410 H* (0.000-0.034) ng/mL Total Protein 5.7 L (6.3-8.2) g/dL Albumin 3.2 L (3.5-5.0) g/dL LDL Cholesterol, Calc 112 H (0-99) mg/dL Arterial Blood Glucose (75-99) mg/dL Urine Protein (Negative) Crossmatch 01/17/20 01/17/20 01/17/20 Range/Units 04:30 09:05 11:04 APTT (22.0-30.0) sec ABG pH (7.35-7.45) ABG pCO2 (35-45) mmHg ABG pO2 >420 H 164 H (83-108) mmHg ABG Total CO2 (19-24) mmol/L ABG O2 Saturation 100.0 H 99.2 H (94-97) % ABG Hematocrit (34.0-46.0) % ABG Ionized Calcium (4.5-5.3) mg/dL ABG Glucose 104 H 121 H (75-99) mg/dL Hemoglobin 12.8 L (13.0-17.5) gm/dL Sodium (137-145) mmol/L Potassium (3.5-5.1) mmol/L Chloride (98-107) mmol/L Carbon Dioxide (22-30) mmol/L BUN (9-20) mg/dL Glucose (74-99) mg/dL Calcium (8.4-10.2) mg/dL Total Bilirubin (0.2-1.3) mg/dL Troponin I 6.220 H* (0.000-0.034) ng/mL Total Protein (6.3-8.2) g/dL Albumin (3.5-5.0) g/dL LDL Cholesterol, Calc (0-99) mg/dL Arterial Blood Glucose 104 H 121 H (75-99) mg/dL Urine Protein (Negative) Crossmatch 01/17/20 01/17/20 01/17/20 Range/Units 12:27 13:02 13:38 APTT (22.0-30.0) sec ABG pH 7.33 L 7.30 L (7.35-7.45) ABG pCO2 47 H 47 H (35-45) mmHg ABG pO2 246 H 284 H 263 H (83-108) mmHg ABG Total CO2 26 H 26 H (19-24) mmol/L ABG O2 Saturation 99.8 H 99.7 H 99.8 H (94-97) % ABG Hematocrit 31 L 30 L 32 L (34.0-46.0) % ABG Ionized Calcium 4.4 L 4.4 L (4.5-5.3) mg/dL ABG Glucose 162 H 141 H 146 H (75-99) mg/dL Hemoglobin 10.2 L 9.7 L 10.5 L (13.0-17.5) gm/dL Sodium (137-145) mmol/L Potassium (3.5-5.1) mmol/L Chloride (98-107) mmol/L Carbon Dioxide (22-30) mmol/L BUN (9-20) mg/dL Glucose (74-99) mg/dL Calcium (8.4-10.2) mg/dL Total Bilirubin (0.2-1.3) mg/dL Troponin I (0.000-0.034) ng/mL Total Protein (6.3-8.2) g/dL Albumin (3.5-5.0) g/dL LDL Cholesterol, Calc (0-99) mg/dL Arterial Blood Glucose 162 H 141 H 146 H (75-99) mg/dL Urine Protein (Negative) Crossmatch 01/17/20 01/17/20 01/17/20 Range/Units 14:14 15:20 16:48 APTT (22.0-30.0) sec ABG pH (7.35-7.45) ABG pCO2 46 H (35-45) mmHg ABG pO2 301 H 258 H 288 H (83-108) mmHg ABG Total CO2 26 H 25 H 27 H (19-24) mmol/L ABG O2 Saturation 99.9 H 99.8 H 99.5 H (94-97) % ABG Hematocrit 32 L 30 L (34.0-46.0) % ABG Ionized Calcium 4.4 L (4.5-5.3) mg/dL ABG Glucose 132 H 107 H (75-99) mg/dL Hemoglobin 10.4 L 9.6 L (13.0-17.5) gm/dL Sodium (137-145) mmol/L Potassium (3.5-5.1) mmol/L Chloride (98-107) mmol/L Carbon Dioxide (22-30) mmol/L BUN (9-20) mg/dL Glucose (74-99) mg/dL Calcium (8.4-10.2) mg/dL Total Bilirubin (0.2-1.3) mg/dL Troponin I (0.000-0.034) ng/mL Total Protein (6.3-8.2) g/dL Albumin (3.5-5.0) g/dL LDL Cholesterol, Calc (0-99) mg/dL Arterial Blood Glucose 132 H 107 H (75-99) mg/dL Urine Protein (Negative) Crossmatch Microbiology - Last 24 Hours (Table) 01/16/20 18:26 Nasal Screen MRSA/MSSA - Preliminary Nasal Swab Assessment and Plan Assessment: Patient is a 44 yo M who presented with STEMI and s/p 5 vessel bypass currently. Ischemic cardiomyopathy with EF 45% STEMI with multivessel coronary artery disease Ventricular Fib arrest CABG with 5 vessel bypass - management per cardiovascular thorasci at this time - patient paced - still intubated as expected ETOH abuse - CIWA - Folic acid - Thiamine Tobacco abuse - cessation - nicotine replacement if needed, patient wants to try to go without it. Dr. Lorenz is now primary and we have been consulted.
[2020-01-17] MEDS: THIAMINE 100 MG TAB PO SCH ×2 (17:32→17:45)
[2020-01-17] MEDS: SODIUM CHLORIDE 0.9% 1,000 ML IV SCH ×2 (17:32→17:34)
[2020-01-17] MEDS: FOLIC ACID 1 MG TAB PO SCH (17:32)
[2020-01-17] MEDS: MULTIVITAMINS, THERA 1 EACH TAB PO SCH (17:32)
[2020-01-17] MEDS: AMIODARONE 300 MG in DEXTROSE 5% IN WATER 250 ML IV SCH ×2 (17:32)
[2020-01-17] MEDS: POTASSIUM CHLORIDE 20 MEQ in WATER FOR INJECTION 1 100ML.BAG IVPB SCH ×3 (17:38→19:14)
[2020-01-17] MEDS: KETOROLAC 30 MG/ML 1 ML VIAL IVP SCH ×2 (17:45→23:07)
[2020-01-17 17:58] LABS: Glucose,Whole Blood 107 mg/dL (75-99)
[2020-01-17] MEDS: ACETAMINOPHEN IV (For NPO) 1,000 MG in EMPTY BAG 1 BAG IVPB SCH ×2 (18:23→23:08)
[2020-01-17] MEDS: DEXMEDETOMIDINE/0.9% NACL(PMX) 400 MCG in EMPTY BAG 1 BAG IV SCH (19:16)
[2020-01-17 19:18] LABS: Basophils % (A) 0 %; Eosinophils # (A) 0.2 k/uL (0-0.7); Eosinophils % (A) 2 %; HCT 33.8 % (39.0-53.0); HGB 11.3 gm/dL (13.0-17.5); Lymphocytes # (A) 1.8 k/uL (1.0-4.8); Lymphocytes % (A) 20 %; MCH 33.1 pg (25.0-35.0); MCHC 33.4 g/dL (31.0-37.0); MCV 99.2 fL (80.0-100.0); Mean Platelet Volume 8.7; Monocytes # (A) 0.5 k/uL (0-1.0); Monocytes % (A) 5 %; Neutrophils # (A) 6.7 k/uL (1.3-7.7); Neutrophils % (A) 73 %; Platelet Count 132 k/uL (150-450); RDW 13.1 % (11.5-15.5); WBC 9.1 k/uL (3.8-10.6)
[2020-01-17 19:18] LABS: Glucose,Whole Blood 124 mg/dL (75-99)
[2020-01-17 19:29] LABS: ABG Base Excess -0.6 mmol/L; ABG HCO3 25 mmol/L (21-25); ABG Oxygen Saturation 97.2 % (94-97); ABG PCO2 44 mmHg (35-45); ABG PH 7.36 (7.35-7.45); ABG PO2 95 mmHg (83-108); ABG TCO2 26 mmol/L (19-24); Allen Test Performed? Yes
[2020-01-17] MEDS: MORPHINE SULFATE 2 MG/ML SYRINGE IVP PRN ×2 (20:09→22:10)
[2020-01-17 20:20] LABS: Glucose,Whole Blood 125 mg/dL (75-99)
[2020-01-17] MEDS ORDERED: METOPROLOL TARTRATE 12.5 MG TAB PO SCH (21:00)
[2020-01-17 21:18] LABS: Glucose,Whole Blood 115 mg/dL (75-99)
[2020-01-17 21:27] LABS: Basophils % (A) 0 %; Eosinophils # (A) 0.1 k/uL (0-0.7); Eosinophils % (A) 1 %; HCT 31.5 % (39.0-53.0); HGB 10.4 gm/dL (13.0-17.5); Lymphocytes % (A) 12 %; MCH 32.2 pg (25.0-35.0); MCHC 33.1 g/dL (31.0-37.0); MCV 97.3 fL (80.0-100.0); Mean Platelet Volume 8.4; Monocytes # (A) 0.4 k/uL (0-1.0); Monocytes % (A) 6 %; Neutrophils # (A) 6.2 k/uL (1.3-7.7); Neutrophils % (A) 80 %; Platelet Count 123 k/uL (150-450); RBC 3.24 m/uL (4.30-5.90); RDW 12.9 % (11.5-15.5); WBC 7.8 k/uL (3.8-10.6)
[2020-01-17] MEDS: MUPIROCIN 2% OINT 22 GM TUBE NASAL SCH (21:38)
[2020-01-17] MEDS: HEPARIN SODIUM,PORCINE 5,000 UNIT/ML 1 ML VIAL SQ SCH (23:08)
[2020-01-17 23:25] LABS: Glucose,Whole Blood 111 mg/dL (75-99)
[2020-01-18] MEDS ORDERED: ATROPINE SULFATE 0.1 MG/ML 10ML SYRINGE ONE (00:37)
[2020-01-18] MEDS: MORPHINE SULFATE 2 MG/ML SYRINGE IVP PRN (00:46)
[2020-01-18 01:20] LABS: Glucose,Whole Blood 121 mg/dL (75-99)
[2020-01-18] MEDS ORDERED: HYDROcodone/APAP 5-325MG 1 EACH TAB PO PRN (03:14)
[2020-01-18 04:19] LABS: Glucose,Whole Blood 105 mg/dL (75-99)
[2020-01-18 04:38] LABS: Basophils % (A) 1 %; Eosinophils # (A) 0.1 k/uL (0-0.7); Eosinophils % (A) 2 %; HCT 30.5 % (39.0-53.0); HGB 9.8 gm/dL (13.0-17.5); Lymphocytes # (A) 1.3 k/uL (1.0-4.8); Lymphocytes % (A) 23 %; MCH 31.4 pg (25.0-35.0); MCHC 32.2 g/dL (31.0-37.0); MCV 97.6 fL (80.0-100.0); Mean Platelet Volume 8.8; Monocytes # (A) 0.4 k/uL (0-1.0); Monocytes % (A) 6 %; Neutrophils # (A) 3.9 k/uL (1.3-7.7); Neutrophils % (A) 67 %; Platelet Count 125 k/uL (150-450); RBC 3.13 m/uL (4.30-5.90); RDW 13.2 % (11.5-15.5); WBC 5.8 k/uL (3.8-10.6)
[2020-01-18] MEDS: HYDROcodone/APAP 5-325MG 1 EACH TAB PO PRN ×4 (04:48→20:47)
[2020-01-18 04:51] LABS: ALT 21 U/L (4-49); AST 61 U/L (17-59); African American GFR (CKD) >90 (>60 ml/min/1.73 sqM); Albumin 2.7 g/dL (3.5-5.0); Alkaline Phosphatase 29 U/L (38-126); Anion Gap 2 mmol/L; Blood Urea Nitrogen 8 mg/dL (9-20); Calcium 7.8 mg/dL (8.4-10.2); Carbon Dioxide 25 mmol/L (22-30); Chloride 109 mmol/L (98-107); Glucose 97 mg/dL (74-99); Magnesium 2.1 mg/dL (1.6-2.3); Non-African American GFR(CKD) >90 (>60 ml/min/1.73 sqM); Potassium 4.4 mmol/L (3.5-5.1); Sodium 136 mmol/L (137-145); Total Bilirubin 1.3 mg/dL (0.2-1.3); Total Protein 4.3 g/dL (6.3-8.2)
[2020-01-18 06:26] LABS: Glucose,Whole Blood 108 mg/dL (75-99)
[2020-01-18] MEDS: KETOROLAC 30 MG/ML 1 ML VIAL IVP SCH ×4 (06:28→23:40)
--- NOTE | 2020-01-18 07:08 | XR ---
EXAMINATION TYPE: XR chest 1V portable DATE OF EXAM: 01/18/2020 HISTORY: Post Operative Cardiac Surgery. REFERENCE: Previous study dated 01/17/2020. FINDINGS: There has been a midline sternotomy. Patient has been extubated. The NG tube is been remove d. There is a [place]-Donnie catheter in place via a right internal jugular approach. Its tip is in the ri ght main pulmonary artery. There is a left pleural drain in place. There is minimal atelectasis at the lung bases. The heart is enlarged. There is widening of the media stinum. I suspect small, bilateral effusions. IMPRESSION: CONTINUING POSTOPERATIVE CHANGE.
[2020-01-18] MEDS: IPRATROPIUM-ALBUTEROL 3 ML NEB INHALATION SCH ×4 (07:25→19:21)
[2020-01-18] MEDS ORDERED: FUROSEMIDE 10 MG/ML 2 ML VIAL IV STA (08:15)
[2020-01-18 08:29] LABS: Glucose,Whole Blood 100 mg/dL (75-99)
[2020-01-18] MEDS: LORazepam 2 MG/ML INJ IV PRN (08:45)
[2020-01-18] MEDS: DILTIAZEM ORAL 30 MG TAB PO SCH ×4 (08:51→20:49)
[2020-01-18] MEDS: METOPROLOL TARTRATE 12.5 MG TAB PO SCH ×2 (08:51→20:48)
[2020-01-18] MEDS: ASPIRIN 325 MG TAB PO SCH (08:51)
[2020-01-18] MEDS: FOLIC ACID 1 MG TAB PO SCH (08:51)
[2020-01-18] MEDS: MULTIVITAMINS, THERA 1 EACH TAB PO SCH (08:52)
[2020-01-18] MEDS: CLOPIDOGREL 75 MG TAB PO SCH (08:52)
[2020-01-18] MEDS: HEPARIN SODIUM,PORCINE 5,000 UNIT/ML 1 ML VIAL SQ SCH ×3 (08:52→23:40)
[2020-01-18] MEDS: THIAMINE 100 MG TAB PO SCH ×2 (08:52→17:52)
[2020-01-18] MEDS: ATORVASTATIN 80 MG TAB PO SCH (08:52)
[2020-01-18] MEDS: PANTOPRAZOLE 40 MG/10 ML VIAL IVP SCH (08:53)
[2020-01-18] MEDS: MUPIROCIN 2% OINT 22 GM TUBE NASAL SCH ×2 (08:57→20:57)
[2020-01-18] MEDS ORDERED: MAGNESIUM HYDROXIDE 2,400 MG/10 ML CUP PO PRN (09:00)
[2020-01-18] MEDS ORDERED: bisacodyL 10 MG SUPP RECTAL PRN (09:00)
--- NOTE | 2020-01-18 09:17 | OP ---
OPERATIVE REPORT DATE OF THE SURGERY: 01/17/2020. SURGEON: Dr. Pardeep Lorenz. DIRECTOR TRAFFIC AND PLANNING: Itz Forrest ). PREOPERATIVE DIAGNOSIS: Triple-vessel coronary artery disease, status post ventricular fibrillation arrest, non ST elevation myocardial infarction, mild left ventricular dysfunction, tobacco and alcohol abuse. POSTOPERATIVE DIAGNOSIS: Triple-vessel coronary artery disease, status post ventricular fibrillation arrest, non ST elevation myocardial infarction, mild left ventricular dysfunction, tobacco and alcohol abuse. PROCEDURE: 1. Quintuple coronary artery bypass grafting using the left internal mammary artery to the left anterior descending artery, the left radial artery from the aorta to the ramus intermedius artery, reverse saphenous vein graft from the aorta to the first diagonal artery, reverse saphenous vein graft from the aorta to the posterolateral branch of the right coronary artery, reverse saphenous vein graft taken from the previous graft and anastomosed to the posterior descending artery. 2. Endoscopic harvesting of the left radial artery. 3. Endoscopic harvesting of the left greater saphenous vein. 4. Intraoperative transesophageal echocardiogram and epiaortic scanning. 5. Graft flow measurements using the HeyCrowdstim system. INDICATION FOR SURGERY: Patient is a 44-year-old gentleman who presented to the emergency room yesterday with a 1-day history of stuttering chest pain. While in the emergency room he sustained ventricular fibrillation and required one single shock and around 1 minute of CPR with re-establishment of normal sinus rhythm. The patient neurologically was intact. The patient was taken to the cardiac cath with opinion that he has severe left anterior descending artery disease, but also diffuse disease with involvement of diagonal arteries, the ramus intermedius artery and moderate disease in the dominant right coronary artery system. His echo showed an LV function that was around 50-55% with hypokinetic apex. There were no valvular abnormalities. Peak troponin this morning before surgery 6. The patient was kept overnight on heparin and amiodarone. The increased STS risks in view of the presentation were discussed with him and his who is a nurse. They understood it and agreed to proceed. PROCEDURE: In the preoperative holding area, a right internal jugular [place]-Donnie catheter and a right radial arterial line were placed. The patient had normal PA pressure and cardiac index of 2.1. He was bradycardic with a heart rate of around 50 sinus. He was brought to the operating room subsequently where general endotracheal anesthesia was induced uneventfully. Stewart catheter was placed. The chest, abdomen, both lower extremity and left upper extremity were prepped and draped using ChloraPrep. Ioban was used to cover the skin. Transesophageal echocardiogram showed the preoperative finding of distal anteroapical hypokinesia with no significant valvular abnormality. Midline sternotomy was performed and bone seal was used. The left hemisternum was elevated. The left internal mammary artery was harvested in a somewhat skeletonized fashion. The patient was given 5000 units of heparin before clipping the mammary artery distally before its bifurcation and transected and transecting it and had an excellent pulsatile flow in it and was around 2 mm in diameter. In the same setting, the left radial artery was initially exposed at the wrist and clamping trial revealed preserved pulsatile signal in the left index O2 saturation probe. The radial artery was harvested endoscopically and the forearm was closed over a drain. The radial artery was prepared by incising the fascia all along its volar aspect and clipping all the branches. It was of excellent quality around 3 mm in diameter. Also in the same setting, the left greater saphenous vein was harvested endoscopically from groin to mid lower leg level. All the branches were tied. The leg incisions were closed over a drain. The vein appeared to be of good quality around 4 mm in diameter. Mediastinal fat transected between two ties and epiaortic scanning revealed some concentric intimal thickening and plaquing, but no protruding atheroma in the ascending aorta, which was mildly dilated. The pericardium was opened and in an inverted T- fashion a pericardial cradle was created. Findings included an elongated mildly dilated aorta and slightly sluggish heart. After systemic heparinization after placement of respective pledgeted pursestring, aortic cannulation in the proximal arch and venous cannulation via the right atrial appendage was performed. Antegrade as well as retrograde cardioplegia catheters were placed. Cardiopulmonary bypass was initiated. The patient temperature was allowed to drift down to 34 degrees Celsius. With the heart empty and beating we looked at the target. The mid LAD between the 2nd and 3rd diagonal artery was identified and had a soft anterior wall but what seemed to be a lateral eccentric plaque diffusely. The 1st diagonal artery was identified under the epicardial fat just before it bifurcated and was short before the bifurcation. The ramus intermedius artery was readily identified also by the left atrial appendage. The 2nd diagonal artery which did not seem to have significant disease in it or interim disease between the mid segment of the LAD and diagonal artery was actually intramyocardial. Looking at the right system, we were planning on bypassing the left ventricular branch of this dominant right coronary artery as there was moderate disease in the groove and there was proximal disease in the PDA as well as some disease in its mid aspect and decision was made also to bypass the PDA. Aorta was clamped and during aortic clamping myocardial protection was achieved. An initial dose of antegrade cold blood cardioplegia followed by dose per retrograde cold blood cardioplegia. All subsequent doses were given retrograde at 15 minute intervals. The first anastomosis was using segment of vein and the posterolateral branch of the right coronary artery which was around 1.75 mm in diameter, thin-walled. This graft was not amenable to a sequential [id number] grafting with the posterior descending artery so I took another segment of vein and anastomosis to the mid posterior descending artery which was around 1.7 mm in diameter, thin-walled, also. The 3rd distal anastomosis was in the radial artery and the proximal aspect to the ramus intermedius artery which was around 1.7 mm in diameter. The 4th distal anastomosis was using a segment of vein and that very short 1st diagonal artery which was around 1.5 mm in diameter. That artery also was not amenable to sequential grafting as it was very proximal and posterior. The fifth and last distal anastomosis was using left internal mammary artery and the mid aspect of the left anterior descending artery which was around 1 cm in diameter with an eccentric plaque diffusely. Rewarming was started as we punched out 3 buttons of the ascending aorta and we anastomosed the radial artery, the vein of the diagonal artery and the vein going to the posterolateral branch of the right coronary artery to the ascending aorta. The inflow of the vein segment going to the posterior descending artery was taken from the mid aspect of the vein graft going to the posterolateral branch by performing venovenotomy using Prolene 7-0 in continuous fashion. The patient was given lidocaine and magnesium and de-airing maneuver had been done as we unclamped the aorta. He regained spontaneous sinus rhythm. Primary graft flow measurements revealed excellent signal in all grafts. Eventually we were able to wean off cardiopulmonary bypass without the need of any inotropic or vasopressor support. We measured flow at this point. The flow into the vein going to the diagonal artery was 63 mL/minute, pulsatility index of 0.9, diastolic filling of 71% showing excellent graft. The flow into the vein going to the posterior descending artery was 80 mL/minute, pulsatility index of 1.1 and diastolic filling of 61% showing excellent graft. The flow into the vein going to the posterolateral branch of the right coronary artery was 24 mL/minute with a pulsatility index of 2.3, diastolic filling of 63% showing excellent functioning graft. The flow into the left internal mammary artery going to the left anterior descending artery was 156 mL/minute with a pulsatility index of 1.8, diastolic filling of 79% showing excellent functioning graft. The flow into the radial artery going to the ramus intermedius artery was 36 mL/minute with a pulsatility index of 1.3, diastolic filling of 67% showing excellent graft. Decannulation followed. All the suckers were stopped as we started protamine and completed it. Hemostasis was satisfactory. Two monopolar atrial pacing wires were affixed to the respective pursing of the right atrium in view of the baseline sinus bradycardia. Two 19-Mal[place] Jaron drains were passed substernally. A groove was made in the left pleuropericardial fat to accommodate the mammary artery medial to the lung and away from the posterior sternal table. After ensuring adequate hemostasis and hemodynamic and with the correct sponge, instrument, and needle count, the pericardial fat was loosely approximated over the aorta, the graft and the heart and the sternum was closed using 6 lum[place] pineal cable after interposing fibrillar between the sternal edges. Thorough irrigation with cefazolin followed. The rest of the closure proceeded in layers. Skin glue was applied. Patient did not receive any blood bank product but received 350 cc of Cell Saver blood. He was transferred to the ICU with excellent hemodynamics with a cardiac index of 3 and normal PA pressure and normal EKG. MMODL / IJN: [id number] / JOAQUIN
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
[2020-01-18 10:22] LABS: Glucose,Whole Blood 88 mg/dL (75-99)
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
[2020-01-18 11:55] LABS: Glucose,Whole Blood 91 mg/dL (75-99)
[2020-01-18] MEDS: SODIUM CHLORIDE 0.9% 1,000 ML IV SCH (12:45)
--- NOTE | 2020-01-18 12:52 | P.PN ---
Subjective Progress Note Date: 01/18/20 Principal diagnosis: chest pain Patient is a 44 yo CM with a hx of tobacco abuse, ETOH regular use, and chronic back pain who presented to the ER via EMS due to chest pain. EMS patient is on have ST segment elevation. A code STEMI was called upon arrival to the ER. He went into a V fib arrest with 2 minutes of CPR and defib wiht ROSC. He went to [facility] was found to have diffuse disease. He was admitted to the ICU and Dr. Lorenz was consulted for possible open heart surgery. He underwent 5 vessel CABG on 01/16. He returned to the ICU and is currently paced, intubated, CT and mediastinal Chest tube in placed. On cardizem for arterial spams, not requiring insulin gtt, Patient seen and examined at bedside. Pain controlled on nausea, no vomiting, p ain well controlled and mostly at left chest tube, no shortness of breath. Objective - Vital Signs Vital signs: Vital Signs Temp 37.1 F L 01/18/20 08:00 Pulse 78 01/18/20 11:27 Resp 15 01/18/20 11:00 BP 103/65 01/18/20 11:00 Pulse Ox 97 01/18/20 10:00 Intake & Output 01/17/20 01/18/20 01/18/20 18:59 06:59 18:59 Intake Total 648.411 996 298.175 Output Total 5060 2215 1015 Balance -4411.589 -1219 -716.825 Weight 90.2 kg 90.2 kg Intake: IV 619 988 224 ACETAMINOPHEN IV (For NPO 100 ) 1,000 mg In Empty Bag 1 bag @ 400 mls/hr IVPB Q6HR [facility] Rx#:[id number] Potassium Chloride 10 meq 200 In Water For Injection 1 100ml.bag @ 100 mls/hr IVPB Q1H [facility] Rx#: [id number] Sodium Chloride 0.9% 1, 150 600 200 000 ml @ 50 mls/hr IV . Q20H [facility] Rx#:[id number] cardiac output 60 280 normal saline 75ml/hour 75 pressure bag 27 108 24 Intake, IV Titration 29.411 8 74.175 Amount Clevidipine Butyrate 25 1.533 8 mg In Empty Bag 1 bag @ 1 MG/HR 2 mls/hr IV .Q24H [facility] Rx#:[id number] Nitroglycerin-D5w Pmx 50 24.175 mg In Dextrose/Water 1 250ml.bag @ 5 MCG/MIN 1.5 mls/hr IV .Q24H [facility] Rx#: [id number] ceFAZolin 2 gm In Sodium 50 Chloride 0.9% 50 ml @ 100 mls/hr IVPB Q8HR [facility] Rx# :[id number] propofoL 1,000 mg In 27.878 Empty Bag 1 bag @ Titrate IV .Q0M [facility] Rx#: [id number] Output: Chest Tube Drainage 550 625 240 Left Pleural chest tube 350 270 130 mediastinal chest tube 200 355 110 Urine 2510 1590 775 Estimated Blood Loss 1999 Other: Voiding Method Indwelling Catheter Indwelling Catheter Indwelling Catheter # Voids 1 ABP, PAP, CO, CI - Last Documented Arterial Blood Pressure 104/65 Pulmonary Artery Pressure 31/16 Cardiac Output 8.1 Cardiac Index 3.9 - Exam General: non toxic, sedated on vent, appears at stated age Derm: warm, dry Head: atraumatic, normocephalic, symmetric Mouth: no lip lesion, mucus membranes moist Cardiovascular: S1S2 reg, no murmur, positive posterior tibial pulse bilateral, Lungs: Course bs bilateral, no rhonchi, no rales , no accessory muscle use, CT in place bilateral, mediastinal tubes in place Abdominal: soft, nontender to palpation, no guarding, no appreciable organomegaly Ext: no gross muscle atrophy, no edema, no contractures Neuro: He is 2 through 12 grossly intact, no focal neuro deficits, moving all 4 extremities independently Psych: Alert, oriented, appropriate affect - Labs CBC & Chem 7: 01/18/20 04:15 01/18/20 04:15 Labs: Abnormal Lab Results - Last 24 Hours (Table) 01/16/20 01/17/20 01/17/20 Range/Units 18:43 09:05 11:04 RBC (4.30-5.90) m/uL Hgb (13.0-17.5) gm/dL Hct (39.0-53.0) % Plt Count (150-450) k/uL PT (9.0-12.0) sec INR (<1.2) APTT (22.0-30.0) sec ABG pH (7.35-7.45) ABG pCO2 (35-45) mmHg ABG pO2 >420 H 164 H (83-108) mmHg ABG Total CO2 (19-24) mmol/L ABG O2 Saturation 100.0 H 99.2 H (94-97) % ABG Hematocrit (34.0-46.0) % ABG Ionized Calcium (4.5-5.3) mg/dL ABG Glucose 104 H 121 H (75-99) mg/dL Hemoglobin 12.8 L (13.0-17.5) gm/dL Sodium (137-145) mmol/L Chloride (98-107) mmol/L BUN (9-20) mg/dL Creatinine (0.66-1.25) mg/dL POC Glucose (mg/dL) (75-99) mg/dL Calcium (8.4-10.2) mg/dL Magnesium (1.6-2.3) mg/dL AST (17-59) U/L Alkaline Phosphatase (38-126) U/L Total Protein (6.3-8.2) g/dL Albumin (3.5-5.0) g/dL Arterial Blood Glucose 104 H 121 H (75-99) mg/dL Crossmatch See Detail 01/17/20 01/17/20 01/17/20 Range/Units 12:27 13:02 13:38 RBC (4.30-5.90) m/uL Hgb (13.0-17.5) gm/dL Hct (39.0-53.0) % Plt Count (150-450) k/uL PT (9.0-12.0) sec INR (<1.2) APTT (22.0-30.0) sec ABG pH 7.33 L 7.30 L (7.35-7.45) ABG pCO2 47 H 47 H (35-45) mmHg ABG pO2 246 H 284 H 263 H (83-108) mmHg ABG Total CO2 26 H 26 H (19-24) mmol/L ABG O2 Saturation 99.8 H 99.7 H 99.8 H (94-97) % ABG Hematocrit 31 L 30 L 32 L (34.0-46.0) % ABG Ionized Calcium 4.4 L 4.4 L (4.5-5.3) mg/dL ABG Glucose 162 H 141 H 146 H (75-99) mg/dL Hemoglobin 10.2 L 9.7 L 10.5 L (13.0-17.5) gm/dL Sodium (137-145) mmol/L Chloride (98-107) mmol/L BUN (9-20) mg/dL Creatinine (0.66-1.25) mg/dL POC Glucose (mg/dL) (75-99) mg/dL Calcium (8.4-10.2) mg/dL Magnesium (1.6-2.3) mg/dL AST (17-59) U/L Alkaline Phosphatase (38-126) U/L Total Protein (6.3-8.2) g/dL Albumin (3.5-5.0) g/dL Arterial Blood Glucose 162 H 141 H 146 H (75-99) mg/dL Crossmatch 01/17/20 01/17/20 01/17/20 Range/Units 14:14 15:20 15:43 RBC 3.04 L (4.30-5.90) m/uL Hgb 9.5 L D (13.0-17.5) gm/dL Hct 29.4 L (39.0-53.0) % Plt Count 102 L D (150-450) k/uL PT (9.0-12.0) sec INR (<1.2) APTT (22.0-30.0) sec ABG pH (7.35-7.45) ABG pCO2 (35-45) mmHg ABG pO2 301 H 258 H (83-108) mmHg ABG Total CO2 26 H 25 H (19-24) mmol/L ABG O2 Saturation 99.9 H 99.8 H (94-97) % ABG Hematocrit 32 L 30 L (34.0-46.0) % ABG Ionized Calcium 4.4 L (4.5-5.3) mg/dL ABG Glucose 132 H 107 H (75-99) mg/dL Hemoglobin 10.4 L 9.6 L (13.0-17.5) gm/dL Sodium (137-145) mmol/L Chloride (98-107) mmol/L BUN (9-20) mg/dL Creatinine (0.66-1.25) mg/dL POC Glucose (mg/dL) (75-99) mg/dL Calcium (8.4-10.2) mg/dL Magnesium (1.6-2.3) mg/dL AST (17-59) U/L Alkaline Phosphatase (38-126) U/L Total Protein (6.3-8.2) g/dL Albumin (3.5-5.0) g/dL Arterial Blood Glucose 132 H 107 H (75-99) mg/dL Crossmatch 01/17/20 01/17/20 01/17/20 Range/Units 15:43 15:43 16:48 RBC (4.30-5.90) m/uL Hgb (13.0-17.5) gm/dL Hct (39.0-53.0) % Plt Count (150-450) k/uL PT 13.1 H (9.0-12.0) sec INR 1.3 H (<1.2) APTT 37.0 H (22.0-30.0) sec ABG pH (7.35-7.45) ABG pCO2 46 H (35-45) mmHg ABG pO2 288 H (83-108) mmHg ABG Total CO2 27 H (19-24) mmol/L ABG O2 Saturation 99.5 H (94-97) % ABG Hematocrit (34.0-46.0) % ABG Ionized Calcium (4.5-5.3) mg/dL ABG Glucose (75-99) mg/dL Hemoglobin (13.0-17.5) gm/dL Sodium (137-145) mmol/L Chloride 111 H (98-107) mmol/L BUN 6 L (9-20) mg/dL Creatinine 0.62 L (0.66-1.25) mg/dL POC Glucose (mg/dL) (75-99) mg/dL Calcium 7.5 L (8.4-10.2) mg/dL Magnesium 2.4 H (1.6-2.3) mg/dL AST (17-59) U/L Alkaline Phosphatase 26 L (38-126) U/L Total Protein 4.1 L (6.3-8.2) g/dL Albumin 2.6 L (3.5-5.0) g/dL Arterial Blood Glucose (75-99) mg/dL Crossmatch 01/17/20 01/17/2020 Range/Units 17:56 19:00 19:07 RBC 3.40 L (4.30-5.90) m/uL Hgb 11.3 L (13.0-17.5) gm/dL Hct 33.8 L (39.0-53.0) % Plt Count 132 L (150-450) k/uL PT (9.0-12.0) sec INR (<1.2) APTT (22.0-30.0) sec ABG pH (7.35-7.45) ABG pCO2 (35-45) mmHg ABG pO2 (83-108) mmHg ABG Total CO2 (19-24) mmol/L ABG O2 Saturation (94-97) % ABG Hematocrit (34.0-46.0) % ABG Ionized Calcium (4.5-5.3) mg/dL ABG Glucose (75-99) mg/dL Hemoglobin (13.0-17.5) gm/dL Sodium (137-145) mmol/L Chloride (98-107) mmol/L BUN (9-20) mg/dL Creatinine (0.66-1.25) mg/dL POC Glucose (mg/dL) 107 H 124 H (75-99) mg/dL Calcium (8.4-10.2) mg/dL Magnesium (1.6-2.3) mg/dL AST (17-59) U/L Alkaline Phosphatase (38-126) U/L Total Protein (6.3-8.2) g/dL Albumin (3.5-5.0) g/dL Arterial Blood Glucose (75-99) mg/dL Crossmatch 01/17/20 01/17/20 01/17/20 Range/Units 19:27 20:19 21:10 RBC 3.24 L (4.30-5.90) m/uL Hgb 10.4 L (13.0-17.5) gm/dL Hct 31.5 L (39.0-53.0) % Plt Count 123 L (150-450) k/uL PT (9.0-12.0) sec INR (<1.2) APTT (22.0-30.0) sec ABG pH (7.35-7.45) ABG pCO2 (35-45) mmHg ABG pO2 (83-108) mmHg ABG Total CO2 26 H (19-24) mmol/L ABG O2 Saturation 97.2 H (94-97) % ABG Hematocrit (34.0-46.0) % ABG Ionized Calcium (4.5-5.3) mg/dL ABG Glucose (75-99) mg/dL Hemoglobin (13.0-17.5) gm/dL Sodium (137-145) mmol/L Chloride (98-107) mmol/L BUN (9-20) mg/dL Creatinine (0.66-1.25) mg/dL POC Glucose (mg/dL) 125 H (75-99) mg/dL Calcium (8.4-10.2) mg/dL Magnesium (1.6-2.3) mg/dL AST (17-59) U/L Alkaline Phosphatase (38-126) U/L Total Protein (6.3-8.2) g/dL Albumin (3.5-5.0) g/dL Arterial Blood Glucose (75-99) mg/dL Crossmatch 01/17/20 01/17/20 01/18/20 Range/Units 21:17 23:24 01:19 RBC (4.30-5.90) m/uL Hgb (13.0-17.5) gm/dL Hct (39.0-53.0) % Plt Count (150-450) k/uL PT (9.0-12.0) sec INR (<1.2) APTT (22.0-30.0) sec ABG pH (7.35-7.45) ABG pCO2 (35-45) mmHg ABG pO2 (83-108) mmHg ABG Total CO2 (19-24) mmol/L ABG O2 Saturation (94-97) % ABG Hematocrit (34.0-46.0) % ABG Ionized Calcium (4.5-5.3) mg/dL ABG Glucose (75-99) mg/dL Hemoglobin (13.0-17.5) gm/dL Sodium (137-145) mmol/L Chloride (98-107) mmol/L BUN (9-20) mg/dL Creatinine (0.66-1.25) mg/dL POC Glucose (mg/dL) 115 H 111 H 121 H (75-99) mg/dL Calcium (8.4-10.2) mg/dL Magnesium (1.6-2.3) mg/dL AST (17-59) U/L Alkaline Phosphatase (38-126) U/L Total Protein (6.3-8.2) g/dL Albumin (3.5-5.0) g/dL Arterial Blood Glucose (75-99) mg/dL Crossmatch 01/18/20 01/18/20 01/18/20 Range/Units 04:15 04:15 04:18 RBC 3.13 L (4.30-5.90) m/uL Hgb 9.8 L (13.0-17.5) gm/dL Hct 30.5 L (39.0-53.0) % Plt Count 125 L (150-450) k/uL PT (9.0-12.0) sec INR (<1.2) APTT (22.0-30.0) sec ABG pH (7.35-7.45) ABG pCO2 (35-45) mmHg ABG pO2 (83-108) mmHg ABG Total CO2 (19-24) mmol/L ABG O2 Saturation (94-97) % ABG Hematocrit (34.0-46.0) % ABG Ionized Calcium (4.5-5.3) mg/dL ABG Glucose (75-99) mg/dL Hemoglobin (13.0-17.5) gm/dL Sodium 136 L (137-145) mmol/L Chloride 109 H (98-107) mmol/L BUN 8 L (9-20) mg/dL Creatinine (0.66-1.25) mg/dL POC Glucose (mg/dL) 105 H (75-99) mg/dL Calcium 7.8 L (8.4-10.2) mg/dL Magnesium (1.6-2.3) mg/dL AST 61 H (17-59) U/L Alkaline Phosphatase 29 L (38-126) U/L Total Protein 4.3 L (6.3-8.2) g/dL Albumin 2.7 L (3.5-5.0) g/dL Arterial Blood Glucose (75-99) mg/dL Crossmatch 01/18/20 01/18/20 Range/Units 06:25 08:28 RBC (4.30-5.90) m/uL Hgb (13.0-17.5) gm/dL Hct (39.0-53.0) % Plt Count (150-450) k/uL PT (9.0-12.0) sec INR (<1.2) APTT (22.0-30.0) sec ABG pH (7.35-7.45) ABG pCO2 (35-45) mmHg ABG pO2 (83-108) mmHg ABG Total CO2 (19-24) mmol/L ABG O2 Saturation (94-97) % ABG Hematocrit (34.0-46.0) % ABG Ionized Calcium (4.5-5.3) mg/dL ABG Glucose (75-99) mg/dL Hemoglobin (13.0-17.5) gm/dL Sodium (137-145) mmol/L Chloride (98-107) mmol/L BUN (9-20) mg/dL Creatinine (0.66-1.25) mg/dL POC Glucose (mg/dL) 108 H 100 H (75-99) mg/dL Calcium (8.4-10.2) mg/dL Magnesium (1.6-2.3) mg/dL AST (17-59) U/L Alkaline Phosphatase (38-126) U/L Total Protein (6.3-8.2) g/dL Albumin (3.5-5.0) g/dL Arterial Blood Glucose (75-99) mg/dL Crossmatch Microbiology - Last 24 Hours (Table) 01/16/20 18:26 Nasal Screen MRSA/MSSA - Final Nasal Swab Assessment and Plan Assessment: Patient is a 44 yo M who presented with STEMI and s/p 5 vessel bypass currently. Ischemic cardiomyopathy with EF 40-45% STEMI with multivessel coronary artery disease Ventricular Fib arrest CABG with 5 vessel bypass - management per cardiovascular surgery at this time - ASA, plavix, statin, cardizem, metoprolol ETOH abuse - on precedex - CIWA, Ativan X 1 today - Folic acid - Thiamine Tobacco abuse - cessation - nicotine replacement if needed, patient wants to try to go without it. ACute blood loss anemia and thromboctyopenia - anticipated and expected outcome of surgery - no transfusions required - follow CBC
[2020-01-18 14:17] LABS: Glucose,Whole Blood 96 mg/dL (75-99)
[2020-01-18] MEDS: DEXMEDETOMIDINE/0.9% NACL(PMX) 400 MCG in EMPTY BAG 1 BAG IV SCH (14:22)
--- NOTE | 2020-01-18 15:36 | P.PN ---
Subjective Patient was extubated yesterday. He is doing well sitting in a chair He has pain at the chest tube insertion site, we'll pain midsternal Is a patient of breath Pulse rate in the 60s and 70s, blood pressure 106/56 mmHg Normal respirations Breath sounds are reduced bilaterally no rhonchi no crackles Normal heart sounds normal S1 normal S2 soft Abdomen soft Extremities warm Impression Multivessel coronary artery disease Presented with ST elevation FL, transient ST elevations with hyperacute changes VF arrest in the ER, quickly resuscitated Coronary angiography revealed multivessel coronary artery disease and coronary artery bypass grafting was recommended History of smoking History of regular alcohol use Suggest Continue current medications including beta blockers antiplatelet agents statins Continue to have a protocol I ICU care post CABG Patient is very clear that he will not be smoking any more and does not want a nicotine patch Objective - Vital Signs Vital signs: Vital Signs Temp 97.9 F 01/18/20 12:00 Pulse 78 01/18/20 15:25 Resp 15 01/18/20 15:00 BP 91/68 01/18/20 14:00 Pulse Ox 95 01/18/20 15:00 Intake & Output 01/17/20 01/18/20 01/18/20 18:59 06:59 18:59 Intake Total 648.411 996 489.058 Output Total 5060 2215 1360 Balance -4411.589 -1219 -870.942 Weight 90.2 kg 90.2 kg Intake: IV 619 988 336 ACETAMINOPHEN IV (For NPO 100 ) 1,000 mg In Empty Bag 1 bag @ 400 mls/hr IVPB Q6HR [facility] Rx#:[id number] Potassium Chloride 10 meq 200 In Water For Injection 1 100ml.bag @ 100 mls/hr IVPB Q1H [facility] Rx#: [id number] Sodium Chloride 0.9% 1, 150 600 300 000 ml @ 50 mls/hr IV . Q20H [facility] Rx#:[id number] cardiac output 60 280 normal saline 75ml/hour 75 pressure bag 27 108 36 Intake, IV Titration 29.411 8 153.058 Amount Clevidipine Butyrate 25 1.533 8 mg In Empty Bag 1 bag @ 1 MG/HR 2 mls/hr IV .Q24H [facility] Rx#:[id number] Dexmedetomidine/0.9% NaCl 78.883 (Pmx) 400 mcg In Empty Bag 1 bag @ Titrate IV . Q0M [facility] Rx#:[id number] Nitroglycerin-D5w Pmx 50 24.175 mg In Dextrose/Water 1 250ml.bag @ 5 MCG/MIN 1.5 mls/hr IV .Q24H [facility] Rx#: [id number] ceFAZolin 2 gm In Sodium 50 Chloride 0.9% 50 ml @ 100 mls/hr IVPB Q8HR [facility] Rx# :[id number] propofoL 1,000 mg In 27.878 Empty Bag 1 bag @ Titrate IV .Q0M [facility] Rx#: [id number] Output: Chest Tube Drainage 550 625 315 Left Pleural chest tube 350 270 170 mediastinal chest tube 200 355 145 Urine 2510 1590 1045 Estimated Blood Loss 1999 Other: Voiding Method Indwelling Catheter Indwelling Catheter Indwelling Catheter # Voids 1 ABP, PAP, CO, CI - Last Documented Arterial Blood Pressure 95/51 Pulmonary Artery Pressure 31/16 Cardiac Output 8.1 Cardiac Index 3.9 - Labs CBC & Chem 7: 01/18/20 04:15 01/18/20 04:15 Labs: Abnormal Lab Results - Last 24 Hours (Table) 01/16/20 01/17/20 01/17/20 Range/Units 18:43 15:43 15:43 RBC 3.04 L (4.30-5.90) m/uL Hgb 9.5 L D (13.0-17.5) gm/dL Hct 29.4 L (39.0-53.0) % Plt Count 102 L D (150-450) k/uL PT 13.1 H (9.0-12.0) sec INR 1.3 H (<1.2) APTT 37.0 H (22.0-30.0) sec ABG pCO2 (35-45) mmHg ABG pO2 (83-108) mmHg ABG Total CO2 (19-24) mmol/L ABG O2 Saturation (94-97) % Sodium (137-145) mmol/L Chloride (98-107) mmol/L BUN (9-20) mg/dL Creatinine (0.66-1.25) mg/dL POC Glucose (mg/dL) (75-99) mg/dL Calcium (8.4-10.2) mg/dL Magnesium (1.6-2.3) mg/dL AST (17-59) U/L Alkaline Phosphatase (38-126) U/L Total Protein (6.3-8.2) g/dL Albumin (3.5-5.0) g/dL Crossmatch See Detail 01/17/20 01/17/20 01/17/20 Range/Units 15:43 16:48 17:56 RBC (4.30-5.90) m/uL Hgb (13.0-17.5) gm/dL Hct (39.0-53.0) % Plt Count (150-450) k/uL PT (9.0-12.0) sec INR (<1.2) APTT (22.0-30.0) sec ABG pCO2 46 H (35-45) mmHg ABG pO2 288 H (83-108) mmHg ABG Total CO2 27 H (19-24) mmol/L ABG O2 Saturation 99.5 H (94-97) % Sodium (137-145) mmol/L Chloride 111 H (98-107) mmol/L BUN 6 L (9-20) mg/dL Creatinine 0.62 L (0.66-1.25) mg/dL POC Glucose (mg/dL) 107 H (75-99) mg/dL Calcium 7.5 L (8.4-10.2) mg/dL Magnesium 2.4 H (1.6-2.3) mg/dL AST (17-59) U/L Alkaline Phosphatase 26 L (38-126) U/L Total Protein 4.1 L (6.3-8.2) g/dL Albumin 2.6 L (3.5-5.0) g/dL Crossmatch 01/17/20 01/17/20 01/17/20 Range/Units 19:00 19:07 19:27 RBC 3.40 L (4.30-5.90) m/uL Hgb 11.3 L (13.0-17.5) gm/dL Hct 33.8 L (39.0-53.0) % Plt Count 132 L (150-450) k/uL PT (9.0-12.0) sec INR (<1.2) APTT (22.0-30.0) sec ABG pCO2 (35-45) mmHg ABG pO2 (83-108) mmHg ABG Total CO2 26 H (19-24) mmol/L ABG O2 Saturation 97.2 H (94-97) % Sodium (137-145) mmol/L Chloride (98-107) mmol/L BUN (9-20) mg/dL Creatinine (0.66-1.25) mg/dL POC Glucose (mg/dL) 124 H (75-99) mg/dL Calcium (8.4-10.2) mg/dL Magnesium (1.6-2.3) mg/dL AST (17-59) U/L Alkaline Phosphatase (38-126) U/L Total Protein (6.3-8.2) g/dL Albumin (3.5-5.0) g/dL Crossmatch 01/17/20 01/17/20 01/17/20 Range/Units 20:19 21:10 21:17 RBC 3.24 L (4.30-5.90) m/uL Hgb 10.4 L (13.0-17.5) gm/dL Hct 31.5 L (39.0-53.0) % Plt Count 123 L (150-450) k/uL PT (9.0-12.0) sec INR (<1.2) APTT (22.0-30.0) sec ABG pCO2 (35-45) mmHg ABG pO2 (83-108) mmHg ABG Total CO2 (19-24) mmol/L ABG O2 Saturation (94-97) % Sodium (137-145) mmol/L Chloride (98-107) mmol/L BUN (9-20) mg/dL Creatinine (0.66-1.25) mg/dL POC Glucose (mg/dL) 125 H 115 H (75-99) mg/dL Calcium (8.4-10.2) mg/dL Magnesium (1.6-2.3) mg/dL AST (17-59) U/L Alkaline Phosphatase (38-126) U/L Total Protein (6.3-8.2) g/dL Albumin (3.5-5.0) g/dL Crossmatch 01/17/20 01/18/20 01/18/20 Range/Units 23:24 01:19 04:15 RBC 3.13 L (4.30-5.90) m/uL Hgb 9.8 L (13.0-17.5) gm/dL Hct 30.5 L (39.0-53.0) % Plt Count 125 L (150-450) k/uL PT (9.0-12.0) sec INR (<1.2) APTT (22.0-30.0) sec ABG pCO2 (35-45) mmHg ABG pO2 (83-108) mmHg ABG Total CO2 (19-24) mmol/L ABG O2 Saturation (94-97) % Sodium (137-145) mmol/L Chloride (98-107) mmol/L BUN (9-20) mg/dL Creatinine (0.66-1.25) mg/dL POC Glucose (mg/dL) 111 H 121 H (75-99) mg/dL Calcium (8.4-10.2) mg/dL Magnesium (1.6-2.3) mg/dL AST (17-59) U/L Alkaline Phosphatase (38-126) U/L Total Protein (6.3-8.2) g/dL Albumin (3.5-5.0) g/dL Crossmatch 01/18/20 01/18/20 01/18/20 Range/Units 04:15 04:18 06:25 RBC (4.30-5.90) m/uL Hgb (13.0-17.5) gm/dL Hct (39.0-53.0) % Plt Count (150-450) k/uL PT (9.0-12.0) sec INR (<1.2) APTT (22.0-30.0) sec ABG pCO2 (35-45) mmHg ABG pO2 (83-108) mmHg ABG Total CO2 (19-24) mmol/L ABG O2 Saturation (94-97) % Sodium 136 L (137-145) mmol/L Chloride 109 H (98-107) mmol/L BUN 8 L (9-20) mg/dL Creatinine (0.66-1.25) mg/dL POC Glucose (mg/dL) 105 H 108 H (75-99) mg/dL Calcium 7.8 L (8.4-10.2) mg/dL Magnesium (1.6-2.3) mg/dL AST 61 H (17-59) U/L Alkaline Phosphatase 29 L (38-126) U/L Total Protein 4.3 L (6.3-8.2) g/dL Albumin 2.7 L (3.5-5.0) g/dL Crossmatch 01/18/20 Range/Units 08:28 RBC (4.30-5.90) m/uL Hgb (13.0-17.5) gm/dL Hct (39.0-53.0) % Plt Count (150-450) k/uL PT (9.0-12.0) sec INR (<1.2) APTT (22.0-30.0) sec ABG pCO2 (35-45) mmHg ABG pO2 (83-108) mmHg ABG Total CO2 (19-24) mmol/L ABG O2 Saturation (94-97) % Sodium (137-145) mmol/L Chloride (98-107) mmol/L BUN (9-20) mg/dL Creatinine (0.66-1.25) mg/dL POC Glucose (mg/dL) 100 H (75-99) mg/dL Calcium (8.4-10.2) mg/dL Magnesium (1.6-2.3) mg/dL AST (17-59) U/L Alkaline Phosphatase (38-126) U/L Total Protein (6.3-8.2) g/dL Albumin (3.5-5.0) g/dL Crossmatch Microbiology - Last 24 Hours (Table) 01/16/20 18:26 Nasal Screen MRSA/MSSA - Final Nasal Swab
[2020-01-18 16:09] LABS: Glucose,Whole Blood 104 mg/dL (75-99)
[2020-01-18 17:44] LABS: Glucose,Whole Blood 118 mg/dL (75-99)
[2020-01-18] MEDS: SENNOSIDES-DOCUSATE SODIUM 1 EACH TAB PO SCH (20:48)
[2020-01-19 00:09] LABS: Glucose,Whole Blood 115 mg/dL (75-99)
[2020-01-19] MEDS: HYDROcodone/APAP 5-325MG 1 EACH TAB PO PRN ×5 (01:16→21:32)
[2020-01-19] MEDS: LORazepam 2 MG/ML INJ IV PRN ×2 (02:15→03:24)
[2020-01-19] MEDS: KETOROLAC 30 MG/ML 1 ML VIAL IVP SCH ×3 (05:18→18:08)
[2020-01-19 05:25] LABS: Basophils % (A) 0 %; Eosinophils # (A) 0.1 k/uL (0-0.7); Eosinophils % (A) 2 %; HCT 28.1 % (39.0-53.0); HGB 9.2 gm/dL (13.0-17.5); Lymphocytes # (A) 1.4 k/uL (1.0-4.8); Lymphocytes % (A) 21 %; MCH 31.7 pg (25.0-35.0); MCHC 32.8 g/dL (31.0-37.0); MCV 96.5 fL (80.0-100.0); Mean Platelet Volume 8.8; Monocytes # (A) 0.3 k/uL (0-1.0); Monocytes % (A) 5 %; Neutrophils # (A) 4.7 k/uL (1.3-7.7); Neutrophils % (A) 71 %; Platelet Count 120 k/uL (150-450); RBC 2.91 m/uL (4.30-5.90); RDW 13.1 % (11.5-15.5); WBC 6.6 k/uL (3.8-10.6)
[2020-01-19 05:52] LABS: Ionized Calcium 4.9 mg/dL (4.5-5.3)
[2020-01-19 06:00] LABS: ALT 20 U/L (4-49); AST 50 U/L (17-59); African American GFR (CKD) >90 (>60 ml/min/1.73 sqM); Albumin 2.9 g/dL (3.5-5.0); Alkaline Phosphatase 37 U/L (38-126); Anion Gap 3 mmol/L; Blood Urea Nitrogen 11 mg/dL (9-20); Calcium 8.3 mg/dL (8.4-10.2); Carbon Dioxide 23 mmol/L (22-30); Chloride 106 mmol/L (98-107); Glucose 105 mg/dL (74-99); Non-African American GFR(CKD) >90 (>60 ml/min/1.73 sqM); Sodium 132 mmol/L (137-145); Total Bilirubin 1.2 mg/dL (0.2-1.3); Total Protein 4.8 g/dL (6.3-8.2)
[2020-01-19] MEDS ORDERED: ALBUMIN HUMAN 25% 50 ML in EMPTY BAG 1 BAG IVPB ONE (06:00)
--- NOTE | 2020-01-19 06:49 | XR ---
EXAMINATION TYPE: XR chest 1V portable DATE OF EXAM: 01/19/2020 HISTORY: Post Operative Cardiac Surgery. REFERENCE: Previous study dated 01/18/2020. FINDINGS: The patient's [facility] catheter is been removed. There has been a midline sternotomy. The heart is enlarged. There is bibasilar airspace disease, unch anged from previous. I suspect small, bilateral effusions. IMPRESSION: CONTINUING POSTOPERATIVE CHANGE, NOT MUCH CHANGE FROM PREVIOUS.
[2020-01-19] MEDS: IPRATROPIUM-ALBUTEROL 3 ML NEB INHALATION SCH ×4 (07:29→19:19)
[2020-01-19 08:12] LABS: Glucose,Whole Blood 115 mg/dL (75-99)
[2020-01-19] MEDS: SODIUM CHLORIDE 0.9% 1,000 ML IV SCH (08:16)
[2020-01-19] MEDS: THIAMINE 100 MG TAB PO SCH ×2 (08:16→18:08)
[2020-01-19] MEDS: HEPARIN SODIUM,PORCINE 5,000 UNIT/ML 1 ML VIAL SQ SCH ×2 (08:16→16:51)
[2020-01-19] MEDS: METOPROLOL TARTRATE 12.5 MG TAB PO SCH ×2 (08:17→21:31)
[2020-01-19] MEDS: ASPIRIN 325 MG TAB PO SCH (08:17)
[2020-01-19] MEDS: CLOPIDOGREL 75 MG TAB PO SCH (08:17)
[2020-01-19] MEDS: MULTIVITAMINS, THERA 1 EACH TAB PO SCH (08:17)
[2020-01-19] MEDS: DILTIAZEM ORAL 30 MG TAB PO SCH (08:17)
[2020-01-19] MEDS: ATORVASTATIN 80 MG TAB PO SCH (08:17)
[2020-01-19] MEDS: FOLIC ACID 1 MG TAB PO SCH (08:17)
[2020-01-19] MEDS: MUPIROCIN 2% OINT 22 GM TUBE NASAL SCH ×2 (08:18→21:33)
[2020-01-19] MEDS: PANTOPRAZOLE 40 MG/10 ML VIAL IVP SCH (08:18)
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
[2020-01-19] MEDS ORDERED: FUROSEMIDE 10 MG/ML 2 ML VIAL IV STA (09:54)
[2020-01-19] MEDS ORDERED: amLODIPine 2.5 MG TAB PO SCH (12:00)
[2020-01-19 12:05] LABS: Glucose,Whole Blood 128 mg/dL (75-99)
[2020-01-19] MEDS: INSULIN ASPART (NovoLOG) 100 UNIT/ML VIAL SQ SCH ×3 (12:05→21:25)
--- NOTE | 2020-01-19 12:11 | P.PN ---
Subjective Progress Note Date: 01/19/20 Principal diagnosis: Status post CABG. This is a 44-year-old white male, smoker, admitted with complaints of chest discomfort. His chest discomfort has been intermittent, progressively becoming worse, while at work, EMS was called. Brought into the ER, initial EKG showed hyperacute T waves in the precordial leads. And follow-up EKG in the ER showed ST elevation in V2 and T-wave inversion in lead 3 and aVF. While in the ER, patient had ventricular fibrillation arrest, and he received 200 J shock. Patient was taken straight to cardiac mushroom laborer, and he underwent emergent cardiac catheterization. He was found to have 50-60% lesion after the first septal, first diagonal had independent 70% lesion and there was a long disease in LAD of 80-90%. And there was 80% after the origin of the second diagonal there was also ramus intermedius very tight lesion. Dominant RCA has a large PLV branch with 80% stenosis. Hence the patient was advised to have your to coronary bypass surgery with graft to the first diagonal second diagonal LAD thrombus intermedius and PLV branch of a super dominant RCA. Patient was heparinized. Seen by cardiothoracic surgery on consultation, and he underwent myocardial revascularization yesterday. Came back to the ICU late in the afternoon. And he was on mechanical ventilation. I was notified about his ventilator settings, reviewed his chest x-ray, and made appropriate recommendations regarding his ventilator. Few hours later, the patient was extubated uneventfully. Today the patient was seen on consultation and he seems to be doing fine. He is on nasal cannula, in no distress. His only concern is some vague discomfort at the site of the left sided chest tube patient is on nitro drip, IV fluid at KVO, and he is on Precedex drip. Incentive spirometry is about 1500 MLS Patient was reevaluated today on 01/19/20, patient remains in the ICU. Sitting at a bedside chair, awake oriented 3, on room air, asymptomatic except for left-sided chest pain at the site of chest tube insertion. His urine output has been marginal hence the patient received 25% albumin CVP is measuring at 10. Patient is in sinus rhythm, hemodynamically stable, O2 saturations 93% on room air. Doing better with incentive spirometry, achieving 2000 mL. Remains on Ativan intermittently for anxiety. And for alcohol withdrawal protocol. Chest x-ray showed postoperative changes and minimal areas of bibasilar atelectasis. CBC is normal except for hemoglobin of 9.2 basic metabolic profile and renal profile are normal Objective - Vital Signs Vital signs: Vital Signs Temp 98.1 F 01/19/20 08:00 Pulse 80 01/19/20 11:56 Resp 17 01/19/20 11:00 BP 131/88 01/19/20 11:00 Pulse Ox 94 L 01/19/20 09:00 Intake & Output 01/18/20 01/19/20 01/19/20 18:59 06:59 18:59 Intake Total 588.058 830 198 Output Total 1570 597 375 Balance -981.942 233 -177 Weight 90.2 kg 88.6 kg Intake: IV 435 830 198 Albumin Human 25% 50 ml 50 In Empty Bag 1 bag @ 50 mls/hr IVPB ONCE ONE Rx#: [id number] Albumin Human 5% 250 ml 250 In Empty Bag 1 bag @ 250 mls/hr IVPB Q1HR PRN Rx#: [id number] Sodium Chloride 0.9% 1, 390 520 130 000 ml @ 50 mls/hr IV . Q20H [facility] Rx#:[id number] pressure bag 45 60 18 Intake, IV Titration 153.058 Amount Dexmedetomidine/0.9% NaCl 78.883 (Pmx) 400 mcg In Empty Bag 1 bag @ Titrate IV . Q0M [facility] Rx#:[id number] Nitroglycerin-D5w Pmx 50 24.175 mg In Dextrose/Water 1 250ml.bag @ 5 MCG/MIN 1.5 mls/hr IV .Q24H [facility] Rx#: [id number] ceFAZolin 2 gm In Sodium 50 Chloride 0.9% 50 ml @ 100 mls/hr IVPB Q8HR [facility] Rx# :[id number] Output: Chest Tube Drainage 395 300 90 Left Pleural chest tube 195 150 40 mediastinal chest tube 200 150 50 Drainage 15 Left Wrist 15 Urine 1160 297 285 Other: Voiding Method Indwelling Catheter Indwelling Catheter Indwelling Catheter ABP, PAP, CO, CI - Last Documented Arterial Blood Pressure 99/59 Pulmonary Artery Pressure 31/16 Cardiac Output 8.1 Cardiac Index 3.9 - Exam Physical Exam: Revealed 44-year-old white male in no distress. Head: Atraumatic, normocephalic. HEENT:[Neck is supple.] [No neck masses.] [No thyromegaly.] [No JVD.] Chest:Lung sounds essentially clear throughout, diminished to his bilateral bases. Respirations are symmetrical and nonlabored. No wheezes, rhonchi or crackles. Oxygen saturations 96% on 2 L nasal cannula and he is achieving 2000 mm on his incentive spirometry. Mediastinal and left pleural chest tubes remain in place to low continuous wall suction -20 cm H2O. Intermittent air leak noted to his left pleural chest tube with no airleak to his mediastinal chest tubes. The chest tubes are draining thin serosanguineous drainage with 205 mL output in the last 8 hours and 510 mL output since surgery from his mediastinal chest tubes. 170 mL in the last 8 hours and 800 mL output since surgery to his left pleural chest tube. Cardiac Exam: Regular rhythm and rate. S1 and S2 present, negative for S3, gallop or murmur. No edema present. Sternum is stable. Heart hugger is in place and he is demonstrating appropriate use. Atrial epicardial pacemaker wires in place and connected to the bedside backup pacemaker generator on an AAI of 50. Bedside te lemetry showing normal sinus rhythm heart rate 67. Knee-high LARRY hose and sequential compression devices in place to his bilateral lower extremities. Right IJ cordis remains in place with continuous CVP monitoring, current CVP pressure 10 mmHg. Abdomen: [Soft, nontender, no megaly, no rebound, no guarding, normal bowel sounds.] Extremities: No clubbing edema or cyanosis. Good pulses bilaterally. Skin is warm and dry. No clubbing or cyanosis is present. Midline sternal incision is clean, dry and approximated. No drainage or redness is present. Gauze dressing is clean, dry and in place. Left radial artery harvest sites are clean, dry and approximated. No drainage or redness is present. Left lower extremity EVH site is clean, dry and approximated. No drainage or redness is present. Neurological Exam: [No focal neurologic deficit.] Alert and oriented 3. Psychiatric: Normal mood, affect and normal mental status examination. - Labs CBC & Chem 7: 01/19/20 05:00 01/19/20 05:00 Labs: Abnormal Lab Results - Last 24 Hours (Table) 01/18/20 01/18/20 01/19/20 Range/Units 16:07 17:43 00:08 RBC (4.30-5.90) m/uL Hgb (13.0-17.5) gm/dL Hct (39.0-53.0) % Plt Count (150-450) k/uL Sodium (137-145) mmol/L Glucose (74-99) mg/dL POC Glucose (mg/dL) 104 H 118 H 115 H (75-99) mg/dL Calcium (8.4-10.2) mg/dL Alkaline Phosphatase (38-126) U/L Total Protein (6.3-8.2) g/dL Albumin (3.5-5.0) g/dL 01/19/20 01/19/20 01/19/20 Range/Units 05:00 05:00 08:10 RBC 2.91 L (4.30-5.90) m/uL Hgb 9.2 L (13.0-17.5) gm/dL Hct 28.1 L (39.0-53.0) % Plt Count 120 L (150-450) k/uL Sodium 132 L (137-145) mmol/L Glucose 105 H (74-99) mg/dL POC Glucose (mg/dL) 115 H (75-99) mg/dL Calcium 8.3 L (8.4-10.2) mg/dL Alkaline Phosphatase 37 L (38-126) U/L Total Protein 4.8 L (6.3-8.2) g/dL Albumin 2.9 L (3.5-5.0) g/dL Assessment and Plan Assessment: Impression: Triple-vessel coronary artery disease, status post quadruple coronary artery bypass grafting surgery. Postoperative day #2 Acute non-ST elevation myocardial infarction upon admission. Status post ventricular fibrillation/arrest. Mild LV dysfunction based on echocardiogram with ejection fraction of 40%. Family history of coronary artery disease and multiple risk factors including ongoing tobacco abuse and alcohol abuse. Recommendation: Continue incentive spirometry. Continue aspirin and Plavix beta blockers and statins. Early ambulation. Discontinue unnecessary catheters. Continue the alcohol withdrawal protocol. Pain control medications. We'll continue to follow Time with Patient: Less than 30
--- NOTE | 2020-01-19 13:25 | P.PN ---
Subjective Patient is resting comfortably in bed He continues to have the discomfort around the chest tube insertion site Looks comfortable in no respiratory distress his blood pressure is excellent heart rates in the normal range no arrhythmias Heart rates in the 60-80 beats a minute blood pressure 116/83 mmHg normal respirations Breath sounds are clear no rhonchi Heart sounds are distant and soft No lower extremity edema Soft abdomen Impression Anterior ST elevation ME VF arrest during acute ME Mild LV dysfunction, left radical ejection fraction 40-45% Multivessel coronary artery disease Status post coronary artery bypass grafting History of smoking Plan Continue aspirin, continue atorvastatin continue Plavix Continue beta blockers Consider jose enrique inhibitors in view of cardio myopathy and maximization of beta blockers Objective - Vital Signs Vital signs: Vital Signs Temp 97.8 F 01/19/20 12:00 Pulse 85 01/19/20 12:00 Resp 14 01/19/20 12:00 BP 116/83 01/19/20 12:00 Pulse Ox 95 01/19/20 12:00 Intake & Output 01/18/20 01/19/20 01/19/20 18:59 06:59 18:59 Intake Total 588.058 830 221 Output Total 1570 597 590 Balance -981.942 233 -369 Weight 90.2 kg 88.6 kg Intake: IV 435 830 221 Albumin Human 25% 50 ml 50 In Empty Bag 1 bag @ 50 mls/hr IVPB ONCE ONE Rx#: [id number] Albumin Human 5% 250 ml 250 In Empty Bag 1 bag @ 250 mls/hr IVPB Q1HR PRN Rx#: [id number] Sodium Chloride 0.9% 1, 390 520 150 000 ml @ 50 mls/hr IV . Q20H [facility] Rx#:[id number] pressure bag 45 60 21 Intake, IV Titration 153.058 Amount Dexmedetomidine/0.9% NaCl 78.883 (Pmx) 400 mcg In Empty Bag 1 bag @ Titrate IV . Q0M [facility] Rx#:[id number] Nitroglycerin-D5w Pmx 50 24.175 mg In Dextrose/Water 1 250ml.bag @ 5 MCG/MIN 1.5 mls/hr IV .Q24H [facility] Rx#: [id number] ceFAZolin 2 gm In Sodium 50 Chloride 0.9% 50 ml @ 100 mls/hr IVPB Q8HR [facility] Rx# :[id number] Output: Chest Tube Drainage 395 300 95 Left Pleural chest tube 195 150 45 mediastinal chest tube 200 150 50 Drainage 15 Left Wrist 15 Urine 1160 297 495 Other: Voiding Method Indwelling Catheter Indwelling Catheter Indwelling Catheter ABP, PAP, CO, CI - Last Documented Arterial Blood Pressure 99/59 Pulmonary Artery Pressure 31/16 Cardiac Output 8.1 Cardiac Index 3.9 - Labs CBC & Chem 7: 01/19/20 05:00 01/19/20 05:00 Labs: Abnormal Lab Results - Last 24 Hours (Table) 01/18/20 01/18/20 01/19/20 Range/Units 16:07 17:43 00:08 RBC (4.30-5.90) m/uL Hgb (13.0-17.5) gm/dL Hct (39.0-53.0) % Plt Count (150-450) k/uL Sodium (137-145) mmol/L Glucose (74-99) mg/dL POC Glucose (mg/dL) 104 H 118 H 115 H (75-99) mg/dL Calcium (8.4-10.2) mg/dL Alkaline Phosphatase (38-126) U/L Total Protein (6.3-8.2) g/dL Albumin (3.5-5.0) g/dL 01/19/20 01/19/20 01/19/20 Range/Units 05:00 05:00 08:10 RBC 2.91 L (4.30-5.90) m/uL Hgb 9.2 L (13.0-17.5) gm/dL Hct 28.1 L (39.0-53.0) % Plt Count 120 L (150-450) k/uL Sodium 132 L (137-145) mmol/L Glucose 105 H (74-99) mg/dL POC Glucose (mg/dL) 115 H (75-99) mg/dL Calcium 8.3 L (8.4-10.2) mg/dL Alkaline Phosphatase 37 L (38-126) U/L Total Protein 4.8 L (6.3-8.2) g/dL Albumin 2.9 L (3.5-5.0) g/dL 01/19/20 Range/Units 12:04 RBC (4.30-5.90) m/uL Hgb (13.0-17.5) gm/dL Hct (39.0-53.0) % Plt Count (150-450) k/uL Sodium (137-145) mmol/L Glucose (74-99) mg/dL POC Glucose (mg/dL) 128 H (75-99) mg/dL Calcium (8.4-10.2) mg/dL Alkaline Phosphatase (38-126) U/L Total Protein (6.3-8.2) g/dL Albumin (3.5-5.0) g/dL
--- NOTE | 2020-01-19 14:34 | P.PN ---
Subjective Progress Note Date: 01/19/20 Principal diagnosis: CABG Patient was seen and examined. No acute events overnight. Pain well-controlled with current urtication on file. He denies any chest pain, shortness of breath or palpitations. No nausea or vomiting. No fever or chills. Ambulating the hallway without much difficulties. Objective - Vital Signs Vital signs: Vital Signs Temp 97.8 F 01/19/20 12:00 Pulse 82 01/19/20 14:00 Resp 14 01/19/20 14:00 BP 117/71 01/19/20 14:00 Pulse Ox 94 L 01/19/20 14:00 Intake & Output 01/18/20 01/19/20 01/19/20 18:59 06:59 18:59 Intake Total 588.058 830 244 Output Total 1570 597 890 Balance -981.942 233 -646 Weight 90.2 kg 88.6 kg Intake: IV 435 830 244 Albumin Human 25% 50 ml 50 In Empty Bag 1 bag @ 50 mls/hr IVPB ONCE ONE Rx#: [id number] Albumin Human 5% 250 ml 250 In Empty Bag 1 bag @ 250 mls/hr IVPB Q1HR PRN Rx#: [id number] Sodium Chloride 0.9% 1, 390 520 170 000 ml @ 50 mls/hr IV . Q20H [facility] Rx#:[id number] pressure bag 45 60 24 Intake, IV Titration 153.058 Amount Dexmedetomidine/0.9% NaCl 78.883 (Pmx) 400 mcg In Empty Bag 1 bag @ Titrate IV . Q0M [facility] Rx#:[id number] Nitroglycerin-D5w Pmx 50 24.175 mg In Dextrose/Water 1 250ml.bag @ 5 MCG/MIN 1.5 mls/hr IV .Q24H [facility] Rx#: [id number] ceFAZolin 2 gm In Sodium 50 Chloride 0.9% 50 ml @ 100 mls/hr IVPB Q8HR [facility] Rx# :[id number] Output: Chest Tube Drainage 395 300 95 Left Pleural chest tube 195 150 45 mediastinal chest tube 200 150 50 Drainage 15 Left Wrist 15 Urine 1160 297 795 Other: Voiding Method Indwelling Catheter Indwelling Catheter Indwelling Catheter ABP, PAP, CO, CI - Last Documented Arterial Blood Pressure 99/59 Pulmonary Artery Pressure 31/16 Cardiac Output 8.1 Cardiac Index 3.9 - Exam General: [non toxic], [no distress], [appears at stated age] Derm: [warm], [dry] Head: [atraumatic], [normocephalic], [symmetric] Eyes: [EOMI], [no lid lag], [anicteric sclera] Mouth: [no lip lesion], [mucus membranes moist] Cardiovascular: [S1S2 reg], [no murmur], [positive posterior tibial pulse bilateral], left pleural chest tube intact Lungs: [CTA bilateral], [no rhonchi, no rales] , [no accessory muscle use] Abdominal: [soft], [ nontender to palpation], [no guarding], [no appreciable organomegaly], Stewart catheter in place Ext: [no gross muscle atrophy], [no edema], [no contractures] Neuro: [no focal neuro deficits] Psych: [Alert], [oriented], [appropriate affect] - Labs CBC & Chem 7: 01/19/20 05:00 01/19/20 05:00 Labs: Abnormal Lab Results - Last 24 Hours (Table) 01/18/20 01/18/20 01/19/20 Range/Units 16:07 17:43 00:08 RBC (4.30-5.90) m/uL Hgb (13.0-17.5) gm/dL Hct (39.0-53.0) % Plt Count (150-450) k/uL Sodium (137-145) mmol/L Glucose (74-99) mg/dL POC Glucose (mg/dL) 104 H 118 H 115 H (75-99) mg/dL Calcium (8.4-10.2) mg/dL Alkaline Phosphatase (38-126) U/L Total Protein (6.3-8.2) g/dL Albumin (3.5-5.0) g/dL 01/19/20 01/19/20 01/19/20 Range/Units 05:00 05:00 08:10 RBC 2.91 L (4.30-5.90) m/uL Hgb 9.2 L (13.0-17.5) gm/dL Hct 28.1 L (39.0-53.0) % Plt Count 120 L (150-450) k/uL Sodium 132 L (137-145) mmol/L Glucose 105 H (74-99) mg/dL POC Glucose (mg/dL) 115 H (75-99) mg/dL Calcium 8.3 L (8.4-10.2) mg/dL Alkaline Phosphatase 37 L (38-126) U/L Total Protein 4.8 L (6.3-8.2) g/dL Albumin 2.9 L (3.5-5.0) g/dL 01/19/20 Range/Units 12:04 RBC (4.30-5.90) m/uL Hgb (13.0-17.5) gm/dL Hct (39.0-53.0) % Plt Count (150-450) k/uL Sodium (137-145) mmol/L Glucose (74-99) mg/dL POC Glucose (mg/dL) 128 H (75-99) mg/dL Calcium (8.4-10.2) mg/dL Alkaline Phosphatase (38-126) U/L Total Protein (6.3-8.2) g/dL Albumin (3.5-5.0) g/dL Assessment and Plan Assessment: History of alcohol abuse Tobacco abuse Acute blood loss anemia Ischemic cardiomyopathy STEMI status post CABG with 5 vessel bypass Ventricular fibrillation arrest Patient appears to be not in acute withdrawal. Plans: CIWA protocol. Ativan as needed for withdrawal. Continue multivitamin and thiamine. Plans: Nicotine patch if needed. Hemoglobin stable at 9.2. There are no signs of acute bleeding. Plans: Transfu se if hemoglobin less than 7. Repeat CBC tomorrow morning. Echocardiogram shows EF 40-45% with hypokinetic wall motion and mild concentric LVH. Not in acute exacerbation. Plans: Continue metoprolol. Patient would benefit from CHAPARRO inhibitor prior to discharge. Follow cardiology recommendations. Status post CABG 5 vessel bypass. Plans: Continue aspirin, Lipitor and Plavix. Continue metoprolol. Follow cardiology and CT surgery recommendations. Likely related to STEMI. Plans: Continue telemetry monitoring. Potassium greater than 4 and magnesium greater than 2. Continue metoprolol. Follow cardiology recommendations.
[2020-01-19 17:05] LABS: Glucose,Whole Blood 100 mg/dL (75-99)
[2020-01-19] MEDS: DEXTROSE 5% IN WATER 100 ML with AMIODARONE 150 MG IV PRN (20:02)
[2020-01-19] MEDS ORDERED: FUROSEMIDE 10 MG/ML 2 ML VIAL IV ONE (20:20)
[2020-01-19 21:26] LABS: Glucose,Whole Blood 112 mg/dL (75-99)
[2020-01-19] MEDS: SENNOSIDES-DOCUSATE SODIUM 1 EACH TAB PO SCH (21:32)
[2020-01-20] MEDS: KETOROLAC 30 MG/ML 1 ML VIAL IVP SCH ×5 (00:19→23:42)
[2020-01-20] MEDS: HEPARIN SODIUM,PORCINE 5,000 UNIT/ML 1 ML VIAL SQ SCH ×4 (00:19→23:42)
[2020-01-20] MEDS: AMIODARONE 300 MG in DEXTROSE 5% IN WATER 250 ML IV PRN ×4 (02:20→14:52)
[2020-01-20] MEDS: DEXTROSE 5% IN WATER 100 ML with AMIODARONE 150 MG IV PRN ×2 (02:51→02:54)
[2020-01-20 05:06] LABS: Basophils % (A) 0 %; Eosinophils # (A) 0.2 k/uL (0-0.7); Eosinophils % (A) 2 %; HGB 10.5 gm/dL (13.0-17.5); Lymphocytes % (A) 13 %; MCH 33.4 pg (25.0-35.0); MCHC 33.8 g/dL (31.0-37.0); MCV 98.7 fL (80.0-100.0); Mean Platelet Volume 8.6; Monocytes # (A) 0.4 k/uL (0-1.0); Monocytes % (A) 5 %; Neutrophils # (A) 6.1 k/uL (1.3-7.7); Neutrophils % (A) 78 %; Platelet Count 178 k/uL (150-450); RBC 3.14 m/uL (4.30-5.90); WBC 7.9 k/uL (3.8-10.6)
[2020-01-20 05:27] LABS: ALT 20 U/L (4-49); AST 46 U/L (17-59); African American GFR (CKD) >90 (>60 ml/min/1.73 sqM); Albumin 3.4 g/dL (3.5-5.0); Alkaline Phosphatase 62 U/L (38-126); Anion Gap 7 mmol/L; Blood Urea Nitrogen 11 mg/dL (9-20); Calcium 8.7 mg/dL (8.4-10.2); Carbon Dioxide 23 mmol/L (22-30); Chloride 105 mmol/L (98-107); Glucose 101 mg/dL (74-99); Non-African American GFR(CKD) >90 (>60 ml/min/1.73 sqM); Potassium 3.6 mmol/L (3.5-5.1); Sodium 135 mmol/L (137-145); Total Bilirubin 1.5 mg/dL (0.2-1.3); Total Protein 5.7 g/dL (6.3-8.2)
[2020-01-20] MEDS ORDERED: POTASSIUM CHLORIDE ER 20 MEQ TAB.ER PO SCH (06:00)
[2020-01-20] MEDS: THIAMINE 100 MG TAB PO SCH ×2 (06:45→17:20)
[2020-01-20] MEDS: PANTOPRAZOLE 40 MG TABLET PO SCH (06:45)
[2020-01-20] MEDS ORDERED: POTASSIUM CHLORIDE ER 20 MEQ TAB.ER PO STA (06:46)
[2020-01-20] MEDS: INSULIN ASPART (NovoLOG) 100 UNIT/ML VIAL SQ SCH ×4 (06:47→20:38)
[2020-01-20] MEDS: METOPROLOL TARTRATE 25 MG TAB PO SCH ×2 (07:32→20:31)
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
[2020-01-20] MEDS ORDERED: FUROSEMIDE 10 MG/ML 2 ML VIAL IV ONE (08:03)
--- NOTE | 2020-01-20 08:09 | XR ---
EXAMINATION TYPE: XR chest 1V portable DATE OF EXAM: 01/20/2020 COMPARISON: 01/19/2020 HISTORY: SOB, Follow Up FINDINGS: Mediastinal drain appears to have been removed. Left-sided chest tube is in place. No evidence for pn eumothorax. No change in bibasilar opacities. Stable appearance of the cardio-mediastinal structures at this time. Pleural effusion unchanged. IMPRESSION: 1. Stable portable chest. Clinical correlation and follow up until resolution is recommended.
[2020-01-20] MEDS: HYDROcodone/APAP 5-325MG 1 EACH TAB PO PRN (08:28)
[2020-01-20] MEDS: ASPIRIN 325 MG TAB PO SCH (08:29)
[2020-01-20] MEDS: MULTIVITAMINS, THERA 1 EACH TAB PO SCH (08:30)
[2020-01-20] MEDS: ATORVASTATIN 80 MG TAB PO SCH (08:30)
[2020-01-20] MEDS: CLOPIDOGREL 75 MG TAB PO SCH (08:30)
[2020-01-20] MEDS: FOLIC ACID 1 MG TAB PO SCH (08:30)
[2020-01-20] MEDS: AMIODARONE 200 MG TAB PO SCH ×2 (08:30→20:31)
[2020-01-20] MEDS: MUPIROCIN 2% OINT 22 GM TUBE NASAL SCH ×2 (08:31→20:32)
[2020-01-20] MEDS: IPRATROPIUM-ALBUTEROL 3 ML NEB INHALATION SCH ×4 (09:01→20:47)
--- NOTE | 2020-01-20 09:33 | P.PN ---
Subjective Progress Note Date: 01/20/20 Principal diagnosis: Triple-vessel coronary artery disease, status post four-vessel coronary artery bypass grafting, non-ST elevated [place] This is a 44-year-old white male, smoker, admitted with complaints of chest discomfort. His chest discomfort has been intermittent, progressively becoming worse, while at work, EMS was called. Brought into the ER, initial EKG showed hyperacute T waves in the precordial leads. And follow-up EKG in the ER showed ST elevation in V2 and T-wave inversion in lead 3 and aVF. While in the ER, patient had ventricular fibrillation arrest, and he received 200 J shock. Patient was taken straight to cardiac laborer/key man, and he underwent emergent ca rdiac catheterization. He was found to have 50-60% lesion after the first septal, first diagonal had independent 70% lesion and there was a long disease in LAD of 80-90%. And there was 80% after the origin of the second diagonal there was also ramus intermedius very tight lesion. Dominant RCA has a large PLV branch with 80% stenosis. Hence the patient was advised to have your to coronary bypass surgery with graft to the first diagonal second diagonal LAD thrombus intermedius and PLV branch of a super dominant RCA. Patient was heparinized. Seen by cardiothoracic surgery on consultation, and he underwent myocardial revascularization yesterday. Came back to the ICU late in the afternoon. And he was on mechanical ventilation. I was notified about his ventilator settings, reviewed his chest x-ray, and made appropriate recommendations regarding his ventilator. Few hours later, the patient was extubated uneventfully. Today the patient was seen on consultation and he seems to be doing fine. He is on nasal cannula, in no distress. His only concern is some vague discomfort at the site of the left sided chest tube patient is on nitro drip, IV fluid at KVO, and he is on Precedex drip. Incentive spirometry is about 1500 MLS Patient was reevaluated today on 01/19/20, patient remains in the ICU. Sitting at a bedside chair, awake oriented 3, on room air, asymptomatic except for left-sided chest pain at the site of chest tube insertion. His urine output has been marginal hence the patient received 25% albumin CVP is measuring at 10. Patient is in sinus rhythm, hemodynamically stable, O2 saturations 93% on room air. Doing better with incentive spirometry, achieving 2000 mL. Remains on Ativan intermittently for anxiety. And for alcohol withdrawal protocol. Chest x-ray showed postoperative changes and minimal areas of bibasilar atelectasis. CBC is normal except for hemoglobin of 9.2 basic metabolic profile and renal profile are normal On 01/20/2020 patient seen in follow-up in the intensive care unit, today is postoperative day #3, status post four-vessel bypass grafting. Patient is awake and alert, in no acute distress, he sitting up in the recliner, room air pulse ox is 96-99%, patient does complain of discomfort in his chest with deep breathing and coughing from the chest tube, otherwise denies any discomfort, incentive spirometry effort today's 2000 ML. Lung sounds are clear, diminished at the bases, no rhonchi, no wheezing. Patient went into A. fib RVR last night, was started on amiodarone drip at 0.5 mg, he remains in atrial fibrillation with a rate of 111 BPM. Blood pressure is stable, 132/99, patient is afebrile, today's chest x-ray has been reviewed showing no evidence of pneumothorax, left- sided chest tube remains in place, bibasilar opacity stable in appearance. Recent left chest tube is to wall suction, without evidence of air leak, and there has been 345 ML of thin serosanguineous output in the last 24 hours. Stewart catheter is out, and patient is voiding. He received a dose of Lasix yesterday, and he made 2.1 L in the urine output and he is in -748 mL net fluid balance over the last 24 hours, patient received another dose of IV Lasix today. His labs have been reviewed, showing normal white count at 7.9, hemoglobin is 10.5, sodium is 135, Trice electrolytes and renal profile is within normal limits. Objective - Vital Signs Vital signs: Vital Signs Temp 98 F 01/20/20 04:00 Pulse 116 H 01/20/20 06:00 Resp 15 01/20/20 06:00 BP 132/99 01/20/20 06:00 Pulse Ox 99 01/20/20 06:00 Intake & Output 01/19/20 01/20/20 01/20/20 18:59 06:59 18:59 Intake Total 244 0 Output Total 1210 1560 Balance -966 -1560 Intake: IV 244 0 Albumin Human 25% 50 ml 50 In Empty Bag 1 bag @ 50 mls/hr IVPB ONCE ONE Rx#: [id number] Sodium Chloride 0.9% 1, 170 0 000 ml @ 50 mls/hr IV . Q20H [facility] Rx#:[id number] pressure bag 24 0 Output: Chest Tube Drainage 165 110 Left Pleural chest tube 75 110 mediastinal chest tube 90 Urine 1045 1450 Other: Voiding Method Indwelling Catheter Urinal # Voids 1 ABP, PAP, CO, CI - Last Documented Arterial Blood Pressure 99/59 Pulmonary Artery Pressure 31/16 Cardiac Output 8.1 Cardiac Index 3.9 - Exam GENERAL EXAM: Alert, very pleasant, 44-year-old white female, on room air, with a pulse ox of 96-99% comfortable in no apparent distress. HEAD: Normocephalic/atraumatic. EYES: Normal reaction of pupils, equal size. Conjunctiva pink, sclera white. NOSE: Clear with pink turbinates. THROAT: No erythema or exudates. NECK: No masses, no JVD, no thyroid enlargement, no adenopathy. CHEST: No chest wall deformity. Symmetrical expansion. Midsternal incision is clean dry and intact, chest tube sites clean dry and intact, left pleural chest tube is in place, to wall suction, with moderate amount of thin serosanguineous output in the Pleur-evac, no evidence of air leak LUNGS: Equal air entry with no crackles, wheeze, rhonchi or dullness. CVS: Regular rate and rhythm, normal S1 and S2, no gallops, no murmurs, no rubs ABDOMEN: Soft, nontender. No hepatosplenomegaly, normal bowel sounds, no guarding or rigidity. EXTREMITIES: No clubbing, no edema, no cyanosis, 2+ pulses and upper and lower extremities. MUSCULOSKELETAL: Muscle strength and tone normal. SPINE: No scoliosis or deformity SKIN: No rashes CENTRAL NERVOUS SYSTEM: Alert and oriented -3. No focal deficits, tone is normal in all 4 extremities. PSYCHIATRIC: Alert and oriented -3. Appropriate affect. Intact judgment and insight. - Labs CBC & Chem 7: 01/20/20 03:37 01/20/20 03:37 Labs: Abnormal Lab Results - Last 24 Hours (Table) 01/17/20 01/19/20 01/19/20 Range/Units 11:59 12:04 17:03 RBC (4.30-5.90) m/uL Hgb (13.0-17.5) gm/dL Hct (39.0-53.0) % ABG pO2 >420 H (83-108) mmHg ABG Total CO2 25 H (19-24) mmol/L ABG O2 Saturation 99.9 H (94-97) % ABG Hematocrit 31 L (34.0-46.0) % ABG Ionized Calcium 4.1 L (4.5-5.3) mg/dL ABG Glucose 111 H (75-99) mg/dL Hemoglobin 10.2 L (13.0-17.5) gm/dL Sodium (137-145) mmol/L Glucose (74-99) mg/dL POC Glucose (mg/dL) 128 H 100 H (75-99) mg/dL Total Bilirubin (0.2-1.3) mg/dL Total Protein (6.3-8.2) g/dL Albumin (3.5-5.0) g/dL Arterial Blood Glucose 111 H (75-99) mg/dL 01/19/20 01/20/20 01/20/20 Range/Units 21:24 03:37 03:37 RBC 3.14 L (4.30-5.90) m/uL Hgb 10.5 L (13.0-17.5) gm/dL Hct 31.0 L (39.0-53.0) % ABG pO2 (83-108) mmHg ABG Total CO2 (19-24) mmol/L ABG O2 Saturation (94-97) % ABG Hematocrit (34.0-46.0) % ABG Ionized Calcium (4.5-5.3) mg/dL ABG Glucose (75-99) mg/dL Hemoglobin (13.0-17.5) gm/dL Sodium 135 L (137-145) mmol/L Glucose 101 H (74-99) mg/dL POC Glucose (mg/dL) 112 H (75-99) mg/dL Total Bilirubin 1.5 H (0.2-1.3) mg/dL Total Protein 5.7 L (6.3-8.2) g/dL Albumin 3.4 L (3.5-5.0) g/dL Arterial Blood Glucose (75-99) mg/dL Assessment and Plan Plan: Assessment: #1. Acute non-ST elevated myocardial infarction upon admission, patient was admitted on 01/16/2028. Patient had a V. fib arrest prior to admission, cardioverted with 200 J shock, and was taken to the cardiac laborer/key man for emergent cardiac catheterization #2. Triple-vessel coronary artery disease status post four-vessel coronary artery bypass grafting surgery, postoperative day #3. Surgery was done on 01/17/2020 #3. Mild LV dysfunction based on echocardiogram with ejection fraction of 40% #4. New-onset atrial fibrillation with rapid ventricular rate on 01/19/2020, patient has been started on amiodarone drip, on which he remains today on 01/20/2020 and patient remains in A. fib with a rate of 104 BPM. An expected outcome of bypass surgery Plan: Continue encouraging deep breathing and coughing, states chest x-ray has been reviewed showing bibasilar atelectasis, left chest tube remains in place and is expected to be discontinued today, patient received another dose of IV Lasix, he is maintaining negative fluid balance. Encourage deep breathing and coughing, maintain pain control. He remains in A. fib slightly tachycardic, continues on amiodarone drip, he is currently on room air, no acute distress, altered mentation, encourage deep breathing and coughing, ambulation. We'll continue to monitor the patient in the intensive care unit I performed a history & physical examination of the patient and discussed their management with my nurse practitioner, Michelle Younger. I reviewed the nurse practitioner's note and agree with the documented findings and plan of care. Lung sounds are positive for diminished breath sounds. The findings and the impression was discussed with the patient. I attest to the documentation by the nurse practitioner. Time with Patient: Less than 30
[2020-01-20 11:48] LABS: Glucose,Whole Blood 89 mg/dL (75-99)
[2020-01-20] MEDS ORDERED: amLODIPine 2.5 MG TAB PO SCH (12:00)
[2020-01-20 12:08] VITALS: BMI 25.7
[2020-01-20 16:50] LABS: Glucose,Whole Blood 102 mg/dL (75-99)
--- NOTE | 2020-01-20 16:52 | PN ---
PROGRESS NOTE Leo is a 44-year-old gentleman that presented to hospital with chest pain and had an episode of ventricular fibrillation in the ER for which he underwent cardiac catheterization and was found to have severe three-vessel coronary artery disease. He underwent bypass surgery. Last night he developed atrial fibrillation and was treated with intravenous amiodarone following which he converted to sinus rhythm. At the time of my evaluation, he is in normal sinus rhythm. He is on amiodarone 400 b.i.d., aspirin, Lipitor, Norvasc, Plavix, Lopressor. On exam, heart rate is 80 beats per minute. Blood pressure is 130/90, respiratory rate is 18, O2 saturation is 99%. There is no jugular venous distention. Carotid upstroke is diminished. There is no bruit. Chest exam reveals diminished air entry at the bases. Heart exam reveals first and second heart sounds. No gallop. Exam of extremities did not reveal any edema. Peripheral pulses are felt. LABS: Show a hemoglobin of 10.5, platelet count is 178, potassium is 3.6, creatinine is 0.8. ASSESSMENT: 1. Three-vessel coronary artery disease status post coronary artery bypass grafting. 2. Postoperative atrial fibrillation, currently in sinus rhythm. PLAN: Patient will continue current medications. MMODL / IJN: [id number] /
[2020-01-20] MEDS: SENNOSIDES-DOCUSATE SODIUM 1 EACH TAB PO SCH (20:31)
[2020-01-20 20:37] LABS: Glucose,Whole Blood 137 mg/dL (75-99)
--- NOTE | 2020-01-20 21:58 | P.PN ---
Progress Note - Text Progress Note Date: 01/20/20 Presenting complaint: Chest pain Interval history: Patient status post CABG. Doing well. Today-did tolerate a diet. Did walk in the hallway. at the bedside. No chest pain. Breathing stable. Some discomfort at the incision site. Using the incentive spirometry. Review of systems: Was done for constitutional, cardiovascular, GI, pulmonary. relevant finding as above Active Medications Acetaminophen (Tylenol Tab) 1,000 mg PO Q6HR PRN PRN Reason: Fever and/ or Pain Hydrocodone Bitart/Acetaminophen ([place] 5-325) 1 each PO Q4HR PRN PRN Reason: Moderate Pain Albuterol/Ipratropium (Duoneb 0.5 Mg-3 Mg/3 Ml Soln) 3 ml INHALATION RT-Q2H PRN PRN Reason: Shortness Of Breath Or Wheezing Albuterol/Ipratropium (Duoneb 0.5 Mg-3 Mg/3 Ml Soln) 3 ml INHALATION RT-QID [facility] Last Admin: 01/20/20 20:47 Dose: Not Given Documented by: Amiodarone HCl (Cordarone) 400 mg PO BID [facility] Last Admin: 01/20/20 20:31 Dose: 400 mg Documented by: Amlodipine Besylate (Norvasc) 2.5 mg PO DAILY@1200 [facility] Last Admin: 01/20/20 13:50 Dose: 2.5 mg Documented by: Aspirin (Aspirin) 325 mg PO DAILY [facility] Last Admin: 01/20/20 08:29 Dose: 325 mg Documented by: Atorvastatin Calcium (Lipitor) 80 mg PO DAILY [facility] Last Admin: 01/20/20 08:30 Dose: 80 mg Documented by: Bisacodyl (Dulcolax) 10 mg RECTAL DAILY PRN PRN Reason: Constipation Clopidogrel Bisulfate (Plavix) 75 mg PO DAILY [facility] Last Admin: 01/20/20 08:30 Dose: 75 mg Documented by: Folic Acid (Folic Acid) 1 mg PO DAILY [facility] Last Admin: 01/20/20 08:30 Dose: 1 mg Documented by: Heparin Sodium (Porcine) (Heparin) 5,000 unit SQ Q8HR [facility] Last Admin: 01/20/20 17:20 Dose: 5,000 unit Documented by: Amiodarone HCl 150 mg/ (Dextrose/Water) 103 mls @ 618 mls/hr IV .Q10M PRN; Protocol PRN Reason: A.FIB/FLUTTER Last Admin: 01/20/20 02:54 Dose: 618 mls/hr Documented by: Amiodarone HCl 300 mg/ (Dextrose/Water) 250 mls @ 25 mls/hr IV .Q10H PRN; Protocol PRN Reason: A.FIB/FLUTTER Last Admin: 01/20/20 14:52 Dose: 0.5 mg/min, 25 mls/hr Documented by: Insulin Aspart (Novolog) 0 unit SQ ACHS [facility]; Protocol Last Admin: 01/20/20 20:38 Dose: 1 unit Documented by: Ketorolac Tromethamine (Toradol) 15 mg IVP Q6HR [facility] Stop: 01/22/20 18:01 Last Admin: 01/20/20 18:15 Dose: 15 mg Documented by: Lorazepam (Ativan) 1 mg IV Q2HR PRN PRN Reason: CIWA 8 or 9 Last Admin: 01/19/20 02:15 Dose: 1 mg Documented by: Lorazepam (Ativan) 1 mg IV Q1HR PRN PRN Reason: CIWA 10 to 15 Last Admin: 01/19/20 03:24 Dose: 1 mg Documented by: Magnesium Hydroxide (Milk Of Magnesia) 2,400 mg PO BID PRN PRN Reason: Constipation Last Admin: 01/20/20 20:30 Dose: 2,400 mg Documented by: Melatonin (Melatonin) 3 mg PO HS PRN PRN Reason: Insomnia Last Admin: 01/18/20 20:48 Dose: 3 mg Documented by: Metoclopramide HCl (Reglan) 10 mg IVP Q4H PRN PRN Reason: Nausea And Vomiting Metoprolol Tartrate (Lopressor) 25 mg PO BID [facility] Last Admin: 01/20/20 20:31 Dose: 25 mg Documented by: Miscellaneous Information (Potassium Per Protocol) 1 each MISCELLANE DAILY PRN; Protocol PRN Reason: Per Protocol Miscellaneous Information (Magnesium Per Protocol) 1 each MISCELLANE DAILY PRN; Protocol PRN Reason: Per Protocol Miscellaneous Information (Phosphorus Per Protocol) 1 each MISCELLANE DAILY PRN; Protocol PRN Reason: Per Protocol Multivitamins (Theragran) 1 each PO DAILY [facility] Last Admin: 01/20/20 08:30 Dose: 1 each Documented by: Ondansetron HCl (Zofran) 4 mg IVP Q6HR PRN PRN Reason: Nausea And Vomiting Pantoprazole Sodium (Protonix) 40 mg PO AC-BRKFST [facility] Last Admin: 01/20/20 06:45 Dose: 40 mg Documented by: Senna/Docusate Sodium (Senokot-S) 2 each PO HS [facility] Last Admin: 01/20/20 20:31 Dose: 2 each Documented by: Sodium Chloride (Saline Flush) 10 ml IV BID [facility] Last Admin: 01/20/20 20:33 Dose: 10 ml Documented by: Thiamine HCl (Vitamin B-1) 100 mg PO BID-W/MEALS [facility] Last Admin: 01/20/20 17:20 Dose: 100 mg Documented by: On examination: VITAL SIGNS: 99.1, 76, 18, 138/90, 95% room air GENERAL APPEARANCE: Laying in bed, comfortable HEENT: Normal external appearance of nose and ear. Oral cavity normal EYES: Pupils equal. Conjunctiva normal. NECK: JVD not raised. Mass not palpable. RESPIRATORY: Respiratory effort normal. Lungs clear to auscultation. CARDIOVASCULAR: First and second sounds normal. No edema. ABDOMEN: Soft. Liver and spleen not palpable. No tenderness. No mass palpable. PSYCHIATRY: Alert and oriented x3. Mood and affect normal. INVESTIGATIONS, reviewed in the clinical context: White count 7.9 hemoglobin 10.5 platelets 178potassium 3.6 Bilirubin 1.5 Albumin 3.4 Assessment: -Acute ST elevation myocardial infarction -CABG -Chronic nicotine dependence -Mild hypoalbuminemia reactive -Hyper-bilirubinemia -Acute postprocedure blood loss anemia as expected from surgery -Dilutional thrombocytopenia-improving -. Paroxysmal atrial fibrillation currently in sinus rhythm -Chronic alcohol disorder Plan: Continue current medication treatment plan. Care is discussed with the patient and the . Smoking cessation was reinforced. add lisinopril 2.5 mg by mouth daily
[2020-01-20] MEDS: ACETAMINOPHEN TAB 500 MG TAB PO PRN (23:46)
[2020-01-21] MEDS ORDERED: MELATONIN 3 MG TABLET PO ONE (00:15)
[2020-01-21 04:30] LABS: HCT 31.7 % (39.0-53.0); HGB 10.2 gm/dL (13.0-17.5); MCH 31.1 pg (25.0-35.0); MCV 97.1 fL (80.0-100.0); Mean Platelet Volume 8.7; Platelet Count 216 k/uL (150-450); RBC 3.27 m/uL (4.30-5.90); RDW 13.2 % (11.5-15.5); WBC 6.9 k/uL (3.8-10.6)
[2020-01-21 05:01] LABS: African American GFR (CKD) >90 (>60 ml/min/1.73 sqM); Anion Gap 7 mmol/L; Blood Urea Nitrogen 12 mg/dL (9-20); Calcium 8.7 mg/dL (8.4-10.2); Carbon Dioxide 21 mmol/L (22-30); Chloride 108 mmol/L (98-107); Glucose 94 mg/dL (74-99); Magnesium 2.1 mg/dL (1.6-2.3); Non-African American GFR(CKD) >90 (>60 ml/min/1.73 sqM); Potassium 4.2 mmol/L (3.5-5.1); Sodium 136 mmol/L (137-145)
[2020-01-21] MEDS: KETOROLAC 30 MG/ML 1 ML VIAL IVP SCH ×3 (05:27→18:05)
--- NOTE | 2020-01-21 06:30 | PN ---
PROGRESS NOTE PULMONARY/CRITICAL CARE PROGRESS NOTE: DATE OF SERVICE: January 21, 2020 A 44-year-old male who has a history of an acute non ST-segment elevation myocardial infarction. The patient had a ventricular fibrillation arrest prior to admission and was cardioverted. He was taken to the cardiac catheterization laboratory for emergent cardiac catheterization and was found to have triple-vessel coronary artery disease and is status post 4-vessel bypass grafting, postop day #4. Surgery was done on January 16. Currently, the patient is doing well. All his chest tubes are out. He is receiving no supplemental oxygen. He is not getting any IV fluids. He is a bit constipated. He also developed new onset atrial fibrillation with RVR on the and was started on amiodarone at that time. Other than that, the patient seems to be doing relatively well and might be discharged home in the next day or 2. He has no major complaints today. His breathing is much improved. His pain is much better controlled since the chest tube has been out. PHYSICAL EXAMINATION: VITAL SIGNS: Current vital signs are reviewed. Temperature 98.2, heart rate 78, respiratory rate 16, blood pressure 138/86, mean 103, room air saturation 96%. GENERAL: Appears in no acute distress. HEENT: Examination is grossly unremarkable. NECK: Supple. Full range of motion. No adenopathy. Neck veins are flat. CARDIOVASCULAR: Examination reveals regular rhythm and rate. Heart rate 78. S1, S2 normal. There is no murmur. He is in sinus rhythm. LUNGS: Reveal a few scattered mild rhonchi. No wheezes or crackles. Breath sounds equal. ABDOMEN: Soft. Bowel sounds are heard. EXTREMITIES: Are intact. No cyanosis, clubbing, or edema. SKIN: Without rash. NEUROLOGIC: Examination is brief but nonfocal. LABS: Labs are reviewed. White count 6.9, hemoglobin 10.2, hematocrit 31.7, platelet count 216,000. Sodium 136, potassium 4.2, chloride 108, CO2 of 21. Anion gap 7. BUN and creatinine were 12 and 0.96 respectively. Chest x-ray has not been done as yet. Microbiology is negative or pending. MEDICATIONS: Medications are reviewed. ASSESSMENT: 1. Acute non ST-segment elevation myocardial infarction, status post ventricular fibrillation arrest with cardioversion and emergent cardiac catheterization. 2. Triple-vessel coronary artery disease, status post 4-vessel bypass grafting, postoperative day #4. 3. Mild left ventricular dysfunction based on echocardiogram, ejection fraction of 40%. 4. New onset atrial fibrillation with rapid ventricular response, resolved. PLAN: Currently, the patient is doing well. We encourage deep breathing, coughing, clearing of secretions. The patient was a smoker. He has vowed not to smoke ever again. Additional recommendations and suggestions are forthcoming. His breathing is much improved. He is having less pain. Blood pressure is stable. We will continue to follow. No additional recommendations are made. MMODL / IJN: [id number] /
[2020-01-21 06:41] LABS: Glucose,Whole Blood 102 mg/dL (75-99)
[2020-01-21] MEDS: PANTOPRAZOLE 40 MG TABLET PO SCH (06:42)
[2020-01-21] MEDS: THIAMINE 100 MG TAB PO SCH ×2 (06:42→16:47)
[2020-01-21] MEDS: INSULIN ASPART (NovoLOG) 100 UNIT/ML VIAL SQ SCH ×4 (06:43→20:40)
[2020-01-21] MEDS: IPRATROPIUM-ALBUTEROL 3 ML NEB INHALATION SCH ×4 (06:54→18:28)
[2020-01-21] MEDS ORDERED: FUROSEMIDE 10 MG/ML 2 ML VIAL IV ONE (08:05)
--- NOTE | 2020-01-21 08:44 | XR ---
EXAMINATION TYPE: XR chest 2V DATE OF EXAM: 01/21/2020 CLINICAL HISTORY: Post chest tube removal status post open heart surgery. TECHNIQUE: Frontal and lateral views of the chest are obtained. COMPARISON: Chest radiograph 01/20/2020 FINDINGS: Sternotomy wires and left mediastinal surgical clips. Interval removal of left-sided chest tube. Redemonstrated postsurgical changes including mild prominence of the central pulmonary vascula ture, bibasilar atelectasis, and small right pleural effusion. The cardiomediastinal silhouette is wi thin normal limits for size. No pneumothorax seen. IMPRESSION: 1. Interval removal of left-sided chest tube. No pneumothorax. 2. Postsurgical changes including bibasilar atelectasis and small right pleural effusion.
[2020-01-21] MEDS: HEPARIN SODIUM,PORCINE 5,000 UNIT/ML 1 ML VIAL SQ SCH ×2 (09:08→16:47)
[2020-01-21] MEDS: ASPIRIN 325 MG TAB PO SCH (09:09)
[2020-01-21] MEDS: AMIODARONE 200 MG TAB PO SCH ×2 (09:09→20:41)
[2020-01-21] MEDS: METOPROLOL TARTRATE 25 MG TAB PO SCH ×2 (09:10→16:47)
[2020-01-21] MEDS: ATORVASTATIN 80 MG TAB PO SCH (09:10)
[2020-01-21] MEDS: FOLIC ACID 1 MG TAB PO SCH (09:10)
[2020-01-21] MEDS: MULTIVITAMINS, THERA 1 EACH TAB PO SCH (09:10)
[2020-01-21] MEDS: CLOPIDOGREL 75 MG TAB PO SCH (09:10)
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
[2020-01-21 11:53] LABS: Glucose,Whole Blood 112 mg/dL (75-99)
[2020-01-21] MEDS ORDERED: amLODIPine 5 MG TAB PO SCH (12:00)
--- NOTE | 2020-01-21 16:27 | PN ---
PROGRESS NOTE FOLLOW-UP NOTE: This patient is a 44-year-old gentleman who came to the hospital with a STEMI, had a ventricular fibrillation and underwent cardiac catheterization and bypass surgery. He is doing well and probably will be discharged home tomorrow. He is free of symptoms; in fact, he just took a shower. Currently on Cordarone 400 b.i.d., Norvasc 5 daily, aspirin, Lipitor, Plavix, Lopressor 25 b.i.d. The patient had an episode of postoperative atrial fibrillation and converted back to sinus rhythm. PHYSICAL EXAMINATION: Heart rate is 68 beats per minute. Blood pressure is 137/85, respiratory rate is 16, oxygen saturation is 98% on room air. Chest exam reveals good air entry bilaterally. Heart exam reveals first and second heart sounds. No gallop. Abdomen is soft. Examination of extremities did not reveal any edema. Peripheral pulses are felt. LABS: Labs show a hemoglobin of 10.2, platelet count is 216. Potassium is 4.2. Creatinine is 0.96. ASSESSMENT: Coronary artery disease, status post coronary artery bypass grafting. PLAN: Patient is doing well. He will continue current medications. Hopefully home tomorrow. MMODL / IJN: [id number] /
[2020-01-21 16:43] LABS: Glucose,Whole Blood 140 mg/dL (75-99)
[2020-01-21 20:22] LABS: Glucose,Whole Blood 98 mg/dL (75-99)
[2020-01-21] MEDS: SENNOSIDES-DOCUSATE SODIUM 1 EACH TAB PO SCH (20:39)
--- NOTE | 2020-01-21 22:05 | P.PN ---
Progress Note - Text Progress Note Date: 01/21/20 Presenting complaint: Chest pain Interval history: Patient status post CABG. Today-no chest pain or shortness of breath. Feeling well." Couple of bowel movements. Did walk in the hallway Tolerating diet. Review of systems: Was done for constitutional, cardiovascular, GI, pulmonary. relevant finding as above Active Medications Acetaminophen (Tylenol Tab) 1,000 mg PO Q6HR PRN PRN Reason: Fever and/ or Pain Last Admin: 01/20/20 23:46 Dose: 1,000 mg Documented by: Albuterol/Ipratropium (Duoneb 0.5 Mg-3 Mg/3 Ml Soln) 3 ml INHALATION RT-Q2H PRN PRN Reason: Shortness Of Breath Or Wheezing Albuterol/Ipratropium (Duoneb 0.5 Mg-3 Mg/3 Ml Soln) 3 ml INHALATION RT-QID [facility] Last Admin: 01/21/20 18:28 Dose: Not Given Documented by: Amiodarone HCl (Cordarone) 400 mg PO BID [facility] Last Admin: 01/21/20 20:41 Dose: 400 mg Documented by: Amlodipine Besylate (Norvasc) 5 mg PO DAILY@1200 [facility] Last Admin: 01/21/20 12:01 Dose: 5 mg Documented by: Aspirin (Aspirin) 325 mg PO DAILY [facility] Last Admin: 01/21/20 09:09 Dose: 325 mg Documented by: Atorvastatin Calcium (Lipitor) 80 mg PO DAILY [facility] Last Admin: 01/21/20 09:10 Dose: 80 mg Documented by: Bisacodyl (Dulcolax) 10 mg RECTAL DAILY PRN PRN Reason: Constipation Clopidogrel Bisulfate (Plavix) 75 mg PO DAILY [facility] Last Admin: 01/21/20 09:10 Dose: 75 mg Documented by: Folic Acid (Folic Acid) 1 mg PO DAILY [facility] Last Admin: 01/21/20 09:10 Dose: 1 mg Documented by: Heparin Sodium (Porcine) (Heparin) 5,000 unit SQ Q8HR [facility] Last Admin: 01/21/20 16:47 Dose: 5,000 unit Documented by: Amiodarone HCl 150 mg/ (Dextrose/Water) 103 mls @ 618 mls/hr IV .Q10M PRN; Protocol PRN Reason: A.FIB/FLUTTER Last Admin: 01/20/20 02:54 Dose: 618 mls/hr Documented by: Amiodarone HCl 300 mg/ (Dextrose/Water) 250 mls @ 25 mls/hr IV .Q10H PRN; Protocol PRN Reason: A.FIB/FLUTTER Last Admin: 01/20/20 14:52 Dose: 0.5 mg/min, 25 mls/hr Documented by: Insulin Aspart (Novolog) 0 unit SQ ACHS [facility]; Protocol Last Admin: 01/21/20 20:40 Dose: Not Given Documented by: Ketorolac Tromethamine (Toradol) 15 mg IVP Q6HR [facility] Stop: 01/22/20 18:01 Last Admin: 01/21/20 18:05 Dose: 15 mg Documented by: Lorazepam (Ativan) 1 mg IV Q2HR PRN PRN Reason: CIWA 8 or 9 Last Admin: 01/19/20 02:15 Dose: 1 mg Documented by: Lorazepam (Ativan) 1 mg IV Q1HR PRN PRN Reason: CIWA 10 to 15 Last Admin: 01/19/20 03:24 Dose: 1 mg Documented by: Magnesium Hydroxide (Milk Of Magnesia) 2,400 mg PO BID PRN PRN Reason: Constipation Last Admin: 01/20/20 20:30 Dose: 2,400 mg Documented by: Melatonin (Melatonin) 3 mg PO HS PRN PRN Reason: Insomnia Last Admin: 01/18/20 20:48 Dose: 3 mg Documented by: Metoprolol Tartrate (Lopressor) 25 mg PO TID [facility] Last Admin: 01/21/20 16:47 Dose: 25 mg Documented by: Miscellaneous Information (Potassium Per Protocol) 1 each MISCELLANE DAILY PRN; Protocol PRN Reason: Per Protocol Miscellaneous Information (Magnesium Per Protocol) 1 each MISCELLANE DAILY PRN; Protocol PRN Reason: Per Protocol Miscellaneous Information (Phosphorus Per Protocol) 1 each MISCELLANE DAILY PRN; Protocol PRN Reason: Per Protocol Multivitamins (Theragran) 1 each PO DAILY [facility] Last Admin: 01/21/20 09:10 Dose: 1 each Documented by: Ondansetron HCl (Zofran) 4 mg IVP Q6HR PRN PRN Reason: Nausea And Vomiting Pantoprazole Sodium (Protonix) 40 mg PO AC-BRKFST [facility] Last Admin: 01/21/20 06:42 Dose: 40 mg Documented by: Senna/Docusate Sodium (Senokot-S) 2 each PO HS [facility] Last Admin: 01/21/20 20:39 Dose: Not Given Documented by: Sodium Chloride (Saline Flush) 10 ml IV BID [facility] Last Admin: 01/21/20 20:39 Dose: 10 ml Documented by: Thiamine HCl (Vitamin B-1) 100 mg PO BID-W/MEALS [facility] Last Admin: 01/21/20 16:47 Dose: 100 mg Documented by: On examination: VITAL SIGNS: 98.5, 75, 14, 130/75, 98% on room air GENERAL APPEARANCE: Sitting up in a chair, comfortable HEENT: Normal external appearance of nose and ear. Oral cavity normal EYES: Pupils equal. Conjunctiva normal. NECK: JVD not raised. Mass not palpable. RESPIRATORY: Respiratory effort normal. Lungs clear to auscultation. CARDIOVASCULAR: First and second sounds normal. No edema. ABDOMEN: Soft. Liver and spleen not palpable. No tenderness. No mass palpable. PSYCHIATRY: Alert and oriented x3. Mood and affect normal. INVESTIGATIONS, reviewed in the clinical context: White count 6.9 hemoglobin 10.2 potassium 4.2 Bilirubin 1.5 Albumin 3.4 Assessment: -Acute ST elevation myocardial infarction -CABG -Chronic nicotine dependence -Mild hypoalbuminemia reactive -Hyper-bilirubinemia -Acute postprocedure blood loss anemia as expected from surgery -Dilutional thrombocytopenia-corrected -. Paroxysmal atrial fibrillation currently in sinus rhythm -Chronic alcohol disorder Plan: Per cardiothoracic surgery dose of Norvasc was increased. Lisinopril was held. Care was discussed with the patient and . Doing well. Thank you Dr. Fonseca
[2020-01-22] MEDS: ACETAMINOPHEN TAB 500 MG TAB PO PRN (00:39)
[2020-01-22] MEDS: KETOROLAC 30 MG/ML 1 ML VIAL IVP SCH ×2 (00:41→06:37)
[2020-01-22] MEDS: METOPROLOL TARTRATE 25 MG TAB PO SCH ×2 (00:41→08:31)
[2020-01-22] MEDS: HEPARIN SODIUM,PORCINE 5,000 UNIT/ML 1 ML VIAL SQ SCH ×2 (00:41→08:30)
[2020-01-22 03:56] VITALS: RESP 14
[2020-01-22 04:09] LABS: Basophils % (A) 1 %; Eosinophils # (A) 0.2 k/uL (0-0.7); Eosinophils % (A) 4 %; HGB 9.8 gm/dL (13.0-17.5); Lymphocytes # (A) 1.5 k/uL (1.0-4.8); Lymphocytes % (A) 22 %; MCH 31.6 pg (25.0-35.0); MCHC 32.6 g/dL (31.0-37.0); Mean Platelet Volume 8.4; Monocytes # (A) 0.4 k/uL (0-1.0); Monocytes % (A) 6 %; Neutrophils # (A) 4.6 k/uL (1.3-7.7); Neutrophils % (A) 66 %; Platelet Count 279 k/uL (150-450); RDW 13.1 % (11.5-15.5); WBC 6.9 k/uL (3.8-10.6)
[2020-01-22 04:21] LABS: African American GFR (CKD) >90 (>60 ml/min/1.73 sqM); Anion Gap 8 mmol/L; Blood Urea Nitrogen 16 mg/dL (9-20); Calcium 8.9 mg/dL (8.4-10.2); Carbon Dioxide 19 mmol/L (22-30); Chloride 109 mmol/L (98-107); Glucose 98 mg/dL (74-99); Non-African American GFR(CKD) >90 (>60 ml/min/1.73 sqM); Potassium 3.8 mmol/L (3.5-5.1); Sodium 136 mmol/L (137-145)
[2020-01-22] MEDS ORDERED: POTASSIUM CHLORIDE ER 20 MEQ TAB.ER PO SCH (06:00)
[2020-01-22] MEDS: INSULIN ASPART (NovoLOG) 100 UNIT/ML VIAL SQ SCH (06:34)
[2020-01-22] MEDS: THIAMINE 100 MG TAB PO SCH (06:37)
[2020-01-22] MEDS: PANTOPRAZOLE 40 MG TABLET PO SCH (06:37)
[2020-01-22] MEDS: ASPIRIN 325 MG TAB PO SCH (08:30)
[2020-01-22] MEDS: AMIODARONE 200 MG TAB PO SCH (08:30)
[2020-01-22] MEDS: FOLIC ACID 1 MG TAB PO SCH (08:31)
[2020-01-22] MEDS: MULTIVITAMINS, THERA 1 EACH TAB PO SCH (08:31)
[2020-01-22] MEDS: ATORVASTATIN 80 MG TAB PO SCH (08:31)
[2020-01-22] MEDS: CLOPIDOGREL 75 MG TAB PO SCH (08:31)
[2020-01-22] MEDS ORDERED: METOPROLOL TARTRATE 50 MG TAB PO SCH (09:00)
[2020-01-22] MEDS ORDERED: FUROSEMIDE 20 MG TAB PO SCH (09:00)
[2020-01-22] MEDS: IPRATROPIUM-ALBUTEROL 3 ML NEB INHALATION SCH ×2 (09:13→12:17)
--- NOTE | 2020-01-22 10:23 | PN ---
PROGRESS NOTE PULMONARY/CRITICAL CARE PROGRESS NOTE: DATE OF SERVICE: 01/22/2020 This is a 44-year-old male with a history of acute non ST-segment elevation myocardial infarction. The ventricular fibrillation arrest and immediate transport to the cardiac catheterization laboratory where he was found to have triple-vessel coronary artery disease. He is status post lap day #5, 4 vessel bypass grafting. Surgery was done on 01/16. Today, he is doing well and may be discharged from the hospital. He is not receiving any supplemental oxygen. He is not on any IV fluids. All-in-all, the patient is doing quite well. In addition, he developed new onset atrial fibrillation with RVR on 01/18 and was started on amiodarone. His breathing is stable. Denies any chest pain or chest discomfort. He was a smoker before getting sick. He states he will never smoke again. Current vital signs are reviewed. Temperature is 98.4, heart rate 75, respiratory rate 14, blood pressure 140/86 mean 104, room air saturation 99%. Appears in no acute distress. HEENT: Examination is grossly unremarkable. NECK: Supple, full range of motion. No adenopathy, thyromegaly or neck vein distention. CARDIOVASCULAR: Examination reveals regular rhythm and rate. Heart rate mid 70s. S1, S2 normal. LUNGS: Reveal clear breath sounds. No wheezes or rhonchi. Breath sounds equal bilaterally. ABDOMEN: Soft, bowel sounds are heard. EXTREMITIES: Intact. No cyanosis, clubbing, or edema. SKIN: Without rash. NEUROLOGIC: Examination is nonfocal. LABS: Reviewed. White count 6.9, hemoglobin 9.8, hematocrit 30.0, platelet count 279,000. Sodium 136, potassium 3.8, chloride is 109, CO2 is 19, anion gap is 8. BUN and creatinine were 16 and 0.95. No recent chest x-ray. Microbiology is negative. ASSESSMENT: 1. Acute non ST-segment elevation myocardial infarction, status post ventricular fibrillation arrest with cardioversion and emergent cardiac catheterization. 2. Triple-vessel CAD, status post 4-vessel bypass grafting, postoperative day #5. 3. Mild left ventricular dysfunction based on echocardiogram, ejection fraction of 40%. 4. New onset atrial fibrillation with RVR, resolved. PLAN: The patient is planning to be discharged from the hospital today. He is not receiving any supplemental oxygen or IV fluids. The patient will follow up in the office with Dr. Burns. He should get a complete pulmonary function test when he is all healed up. No additional recommendations are made. We counseled him about the importance of smoking cessation. MMODL / IJN: [id number] /
--- NOTE | 2020-01-22 12:19 | P.VSCSTY ---
Greater Saphenous Vein Mapping This is bilateral lower extremity greater saphenous vein mapping. Date of service: 01/16/2020 Vein quality and ultrasound appearance: We see no intraluminal thrombus or wall changes. Vein size groin right : 5.2 x 4.5 groin left: 4.9 x 5.0 High thigh right: 5.3 x 4.7 high thigh left: 3.9 x 2.9 Mid thigh right: 3.3 x 2.9 mid thigh left: 4.3 x 3.8 Above-knee right: 3.8 x 3.1 above- knee left: 3.1 x 2.3 Below knee right: 3.0 x 2.4 below-knee left: 2.3 x 1.6 Mid calf right: 2.0 x 1.4 mid calf left: 1.9 x 1.8 Ankle right: 2.2 x 1.3 ankle left: 3.0 x 2.1 Impression: Usable bilateral greater saphenous vein. Mid calf and below on both sides are a bit small. Clinical correlation recommended.
[2020-01-22 12:20] VITALS: BP 122/80; PULSE 65; TEMP 98.3
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
--- NOTE | 2020-01-22 16:28 | PN ---
PROGRESS NOTE FOLLOW-UP NOTE: Leo is a 44-year-old gentleman who was admitted to hospital with [id number] [place] and ventricular fibrillation. He had cardiac catheterization and bypass surgery. He is ready to be discharged home, doing well and is free of symptoms. He is currently on aspirin, Lipitor, Plavix, Lasix and amiodarone, the dose of which I am going to decrease to 200 b.i.d. On exam, comfortable at rest. Vital signs are stable. Chest exam reveals good air entry bilaterally. Heart exam reveals first and second heart sounds. No gallop. Examination of extremities did not reveal any edema. Labs show a potassium of 3.8. Creatinine is 0.9. Hemoglobin is 9.8. ASSESSMENT: 1. Coronary artery disease, status post coronary artery bypass grafting. 2. Postoperative atrial fibrillation. PLAN: Patient is doing well; stable for discharge. Follow up with Cardiology in 2 weeks' time. MMHARMANL / EARLN: [id number] /
--- NOTE | 2020-01-22 23:09 | P.PN ---
Progress Note - Text Progress Note Date: 01/22/20 Presenting complaint: Chest pain Interval history: Patient status post CABG. Today-doing well. And bleeding. Had a bowel movement. No chest pain. Breathing stable. at the bedside. Review of systems: Was done for constitutional, cardiovascular, GI, pulmonary. relevant finding as above Current medications reviewed in today's electronic records On examination: VITAL SIGNS: 98.3, 65, 14, 122/80, 98% GENERAL APPEARANCE: Sitting up, comfortable HEENT: Normal external appearance of nose and ear. Oral cavity normal EYES: Pupils equal. Conjunctiva normal. NECK: JVD not raised. Mass not palpable. RESPIRATORY: Respiratory effort normal. Lungs clear to auscultation. CARDIOVASCULAR: First and second sounds normal. No edema. ABDOMEN: Soft. Liver and spleen not palpable. No tenderness. No mass palpable. PSYCHIATRY: Alert and oriented x3. Mood and affect normal. INVESTIGATIONS, reviewed in the clinical context: White count 6.9 hemoglobin 10.2 potassium 4.2 Bilirubin 1.5 Albumin 3.4 Assessment: -Acute ST elevation myocardial infarction -CABG -Chronic nicotine dependence -Mild hypoalbuminemia reactive -Hyper-bilirubinemia -Acute postprocedure blood loss anemia as expected from surgery -Dilutional thrombocytopenia-corrected -. Paroxysmal atrial fibrillation currently in sinus rhythm -Chronic alcohol disorder Plan: Care was discussed with the patient . Question answered. Return to work instructions as per cardiothoracic surgical team. Patient to follow-up with his PCP.. Thank you Dr. Fonseca
--- NOTE | 2020-01-23 09:04 | CDI ---
Documentation Clarification Form Date: 01/23/20 From: Greta Joyce CCS Phone: If you have a question about this query, please contact Lorena Sultana, Vessel Master at [phone] between 8am and 5pm. Admit Date: 01/16/20 Discharge Date:01/22/20 Patient Name: Leo Kulkarni Visit Number: [id number] ATTENTION: The Clinical Documentation Specialists (CDI) and [facility] Coding Staff appreciate your assistance in clarifying documentation. Please respond to the clarification below the line at the bottom and electronically sign. The CDI & [facility] Coding staff will review the response and follow-up if needed. Please note: Queries are made part of the Legal Health Record. If you have any questions, please contact the author of this message via ITS. Dear Dr. Lorenz, Conflicting documentation has been found in the medical record: Consult 01/17, PNs, DS document: Acute non-ST elevated myocardial infarction upon admission, patient was admitted on 01/16/20 CABG notes, ED, PNs document: Anterior ST elevation KS, -Acute ST elevation myocardial infarction History/Risk Factors: CAD, Tobacco, ETOH, V Fib, AFIB Clinical Indicators: Acute KS Treatment: Cath, CABG In your opinion, what is the most clinically appropriate diagnosis for this patient? Acute non ST-segment elevation myocardial infarction Acute anterolateral ST elevation KS Other explanation of clinical findings Unable to determine (no explanation for clinical findings) Acute non-STEMI MTDD
== END 2020-01-22 13:17 | disposition home health service (06) | DRG 233 ==
LOC: EC 16:20 → 2SICU 16:46
PROVIDERS: ADMIT Surgery; ATTEND Surgery
PROC: 4A023N7 Measurement of Cardiac Sampling and Pressure, Left Heart, Percutaneous Approach (ICD-10-PCS; 2020-01-16)
PROC: B2111ZZ Fluoroscopy of Multiple Coronary Arteries using Low Osmolar Contrast (ICD-10-PCS; 2020-01-16)
PROC: 5A12012 Performance of Cardiac Output, Single, Manual (ICD-10-PCS; 2020-01-16)
PROC: B54DZZZ Ultrasonography of Bilateral Lower Extremity Veins (ICD-10-PCS; 2020-01-16)
PROC: 03BC4ZZ Excision of Left Radial Artery, Percutaneous Endoscopic Approach (ICD-10-PCS; principal; 2020-01-17 08:00)
PROC: 02100AW Bypass Coronary Artery, One Artery from Aorta with Autologous Arterial Tissue, Open Approach (ICD-10-PCS; principal; 2020-01-17 08:00)
PROC: 5A1221Z Performance of Cardiac Output, Continuous (ICD-10-PCS; principal; 2020-01-17 08:00)
PROC: 06BQ4ZZ Excision of Left Saphenous Vein, Percutaneous Endoscopic Approach (ICD-10-PCS; principal; 2020-01-17 08:00)
PROC: 02100Z9 Bypass Coronary Artery, One Artery from Left Internal Mammary, Open Approach (ICD-10-PCS; principal; 2020-01-17 08:00)
PROC: 021009W Bypass Coronary Artery, One Artery from Aorta with Autologous Venous Tissue, Open Approach (ICD-10-PCS; principal; 2020-01-17 08:00)
DX: I21.4 Non-ST elevation (NSTEMI) myocardial infarction (principal); I46.2 Cardiac arrest due to underlying cardiac condition; I49.01 Ventricular fibrillation; R17 Unspecified jaundice; D62 Acute posthemorrhagic anemia; Z11.59 Encounter for screening for other viral diseases; E88.09 Other disorders of plasma-protein metabolism, not elsewhere classified; D69.59 Other secondary thrombocytopenia; I48.0 Paroxysmal atrial fibrillation; I25.5 Ischemic cardiomyopathy; I77.810 Thoracic aortic ectasia; I25.10 Atherosclerotic heart disease of native coronary artery without angina pectoris; F17.210 Nicotine dependence, cigarettes, uncomplicated; G89.29 Other chronic pain; F10.10 Alcohol abuse, uncomplicated; M54.5 Low back pain; F41.9 Anxiety disorder, unspecified; K59.00 Constipation, unspecified; Z71.3 Dietary counseling and surveillance; Z71.6 Tobacco abuse counseling; Z87.81 Personal history of (healed) traumatic fracture; Z82.49 Family history of ischemic heart disease and other diseases of the circulatory system
CPT/HCPCS: 71045; 71046; 80048; 80053; 80061; 80074; 81003; 82330; 82550; 82553; 82805; 83036; 83690; 83735; 83880; 84100; 84132; 84443; 84484; 85025; 85027; 85379; 85520; 85610; 85730; 86850; 86891; 86900; 86901; 86920; 87070; 87635; 92950; 93005; 93306; 93458; 93880; 93970; 94002; 94640; 96365; 96375; 99291

== ENCOUNTER 2020-01-26 16:30 | Inpatient (IN) | payer BC ==
[2020-01-26] MEDS ORDERED: NITROGLYCERIN SL TABS 0.4 MG TAB SUBLINGUAL STA (16:49)
[2020-01-26 16:55] LABS: Basophils # (A) 0.1 k/uL (0-0.2); Basophils % (A) 0 %; Eosinophils # (A) 0.7 k/uL (0-0.7); Eosinophils % (A) 5 %; HCT 33.8 % (39.0-53.0); HGB 10.7 gm/dL (13.0-17.5); Lymphocytes # (A) 1.6 k/uL (1.0-4.8); Lymphocytes % (A) 11 %; MCH 30.3 pg (25.0-35.0); MCHC 31.8 g/dL (31.0-37.0); MCV 95.4 fL (80.0-100.0); Mean Platelet Volume 7.6; Monocytes # (A) 0.8 k/uL (0-1.0); Monocytes % (A) 6 %; Neutrophils # (A) 11.2 k/uL (1.3-7.7); Neutrophils % (A) 76 %; Platelet Count 541 k/uL (150-450); RBC 3.54 m/uL (4.30-5.90); RDW 12.9 % (11.5-15.5); WBC 14.6 k/uL (3.8-10.6)
[2020-01-26 17:04] LABS: Partial Thromboplastin Time 26.5 sec (22.0-30.0); Prothrombin Time 10.6 sec (9.0-12.0)
[2020-01-26 17:06] LABS: ALT 42 U/L (4-49); AST 34 U/L (17-59); African American GFR (CKD) >90 (>60 ml/min/1.73 sqM); Albumin 3.7 g/dL (3.5-5.0); Alkaline Phosphatase 60 U/L (38-126); Anion Gap 11 mmol/L; Blood Urea Nitrogen 20 mg/dL (9-20); Calcium 9.3 mg/dL (8.4-10.2); Carbon Dioxide 22 mmol/L (22-30); Chloride 102 mmol/L (98-107); Creatine Kinase 64 U/L (55-170); Glucose 120 mg/dL (74-99); Non-African American GFR(CKD) >90 (>60 ml/min/1.73 sqM); Potassium 4.4 mmol/L (3.5-5.1); Sodium 135 mmol/L (137-145); Total Bilirubin 0.8 mg/dL (0.2-1.3); Total Protein 6.5 g/dL (6.3-8.2)
--- NOTE | 2020-01-26 17:15 | XR ---
EXAMINATION TYPE: XR chest 2V DATE OF EXAM: 01/26/2020 COMPARISON: 01/24/2020 HISTORY: Effusion. TECHNIQUE: 2 views FINDINGS: There is some linear density at the lung bases. There are sternal wires. There is no heart failure. There are chest leads. IMPRESSION: There is some patchy linear infiltrate and atelectasis in both lower lobes unchanged comp ared to last exam. No heart failure seen. Small pleural effusions unchanged.
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
[2020-01-26] MEDS ORDERED: NITROGLYCERIN SL TABS 0.4 MG TAB SUBLINGUAL PRN (18:12)
--- NOTE | 2020-01-26 19:13 | CT ---
EXAMINATION TYPE: CT angio chest DATE OF EXAM: 01/26/2020 COMPARISON: None HISTORY: Elevated d-dimer and chest pain, history of recent CABG. CT DLP: 423.1 mGycm Automated exposure control for dose reduction was used. CONTRAST: Performed with IV Contrast, patient injected with 80ml mL of Isovue 370. There are 3-D post processed images. Thoracic aorta is intact. There is no dissection. There is 4.2 cm aneurysm of the ascending aorta. Th ere is sternal wires. There are anterior mediastinal lymph nodes up to 1 cm. There is pericardial eff usion. Fluid measures up to 2 cm in thickness. Heart size is normal. There are bilateral pleural effu sions with basilar pulmonary infiltrates and atelectasis. I see no discrete pulmonary mass. There is normal contrast opacification of the pulmonary arteries. There are no filling defects. There is 25% wedging of T12 vertebra that is probably old. IMPRESSION: No evidence of pulmonary embolism. Thoracic aortic aneurysm. No dissection. Bilateral pulmonary basilar linear infiltrate and atelectasis. Mild bilateral pleural effusions. Mode rate-sized pericardial effusion. There are few nonspecific bronchial and mediastinal lymph nodes.
[2020-01-26] MEDS: ACETAMINOPHEN TAB 500 MG TAB PO PRN (20:06)
[2020-01-26] MEDS: METOPROLOL TARTRATE 50 MG TAB PO SCH (20:13)
[2020-01-26 20:17] LABS: Glucose,Whole Blood 97 mg/dL (75-99)
[2020-01-26] MEDS ORDERED: HYDROcodone/APAP 5-325MG 1 EACH TAB PO PRN (20:45)
[2020-01-26] MEDS ORDERED: MORPHINE SULFATE 2 MG/ML SYRINGE IVP STA (20:51)
[2020-01-26] MEDS: KETOROLAC 30 MG/ML 1 ML VIAL IVP SCH (21:44)
[2020-01-26] MEDS ORDERED: LORazepam 2 MG/ML INJ IV PRN ×2 (22:36)
[2020-01-26] MEDS ORDERED: THIAMINE 100 MG/ML 2 ML VIAL IM STA (22:36)
[2020-01-26] MEDS ORDERED: HEPARIN SODIUM,PORCINE 5,000 UNIT/ML 1 ML VIAL IV PRN (22:55)
[2020-01-26] MEDS ORDERED: HEPARIN SOD,PORK IN 0.45% NACL 25,000 UNIT in 0.45% NACL 1 250ML.BAG IV SCH (23:00)
[2020-01-27] MEDS: THIAMINE 100 MG TAB PO SCH ×3 (01:24→17:14)
[2020-01-27] MEDS: NITROGLYCERIN OINT 1 INCH/GM PACKET TOPICAL SCH ×3 (02:47→13:19)
[2020-01-27] MEDS: KETOROLAC 30 MG/ML 1 ML VIAL IVP SCH ×2 (04:11→08:11)
[2020-01-27 06:16] LABS: Basophils % (A) 0 %; Eosinophils # (A) 0.5 k/uL (0-0.7); Eosinophils % (A) 4 %; HCT 31.1 % (39.0-53.0); HGB 9.9 gm/dL (13.0-17.5); Lymphocytes # (A) 1.8 k/uL (1.0-4.8); Lymphocytes % (A) 14 %; MCH 30.3 pg (25.0-35.0); MCHC 31.9 g/dL (31.0-37.0); Mean Platelet Volume 7.6; Monocytes # (A) 0.6 k/uL (0-1.0); Monocytes % (A) 5 %; Neutrophils # (A) 9.6 k/uL (1.3-7.7); Neutrophils % (A) 75 %; Platelet Count 530 k/uL (150-450); RBC 3.27 m/uL (4.30-5.90); WBC 12.8 k/uL (3.8-10.6)
[2020-01-27 06:29] LABS: ALT 31 U/L (4-49); AST 19 U/L (17-59); African American GFR (CKD) >90 (>60 ml/min/1.73 sqM); Albumin 3.1 g/dL (3.5-5.0); Alkaline Phosphatase 62 U/L (38-126); Anion Gap 8 mmol/L; Blood Urea Nitrogen 20 mg/dL (9-20); Calcium 8.4 mg/dL (8.4-10.2); Carbon Dioxide 23 mmol/L (22-30); Chloride 105 mmol/L (98-107); Cholesterol 88 mg/dL (<200); Glucose 101 mg/dL (74-99); HDL Cholesterol 23 mg/dL (40-60); LDL Cholesterol,Calculated 48 mg/dL (0-99); Magnesium 1.9 mg/dL (1.6-2.3); Non-African American GFR(CKD) >90 (>60 ml/min/1.73 sqM); Potassium 4.6 mmol/L (3.5-5.1); Sodium 136 mmol/L (137-145); Total Protein 5.9 g/dL (6.3-8.2); Triglycerides 83 mg/dL (<150)
[2020-01-27] MEDS: ATORVASTATIN 80 MG TAB PO SCH (08:10)
[2020-01-27] MEDS: ASPIRIN 325 MG TAB PO SCH (08:11)
[2020-01-27] MEDS: METOPROLOL TARTRATE 50 MG TAB PO SCH ×2 (08:11→19:42)
[2020-01-27] MEDS: CEPHALEXIN 500 MG CAP PO SCH ×2 (08:11→12:32)
[2020-01-27] MEDS: CLOPIDOGREL 75 MG TAB PO SCH (08:11)
[2020-01-27] MEDS: PANTOPRAZOLE 40 MG TABLET PO SCH (08:16)
[2020-01-27] MEDS: MULTIVITAMINS, THERA 1 EACH TAB PO SCH (08:16)
[2020-01-27] MEDS ORDERED: ASPIRIN 325 MG TAB PO SCH (09:00)
[2020-01-27] MEDS ORDERED: AMIODARONE 200 MG TAB PO SCH (09:00)
[2020-01-27] MEDS: LORazepam 2 MG/ML INJ IV PRN (09:43)
--- NOTE | 2020-01-27 10:44 | ECHOF ---
Referral Reason:assess for pericardial effusion MEASUREMENTS -------- HEIGHT: 182.9 cm WEIGHT: 78.5 kg BP: 114/73 FINDINGS -------- Sinus rhythm. Echo done 01/16/20: CABG x 5 done 01/17/20: Limited Study to r/0 Pericardial Effusion. There is a moderate, generalized pericardial effusion present. CONCLUSIONS -------- 1. Echo done 01/16/20: CABG x 5 done 01/17/20: Limited Study to r/0 Pericardial Effusion. 2. There is a moderate, generalized pericardial effusion present. PERCUSSION INSTRUMENT TUNER: Anastasia Ring RDCS
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
[2020-01-27] MEDS ORDERED: FUROSEMIDE 10 MG/ML 2 ML VIAL IV ONE (12:09)
[2020-01-27] MEDS ORDERED: COLCHICINE 0.6 MG EACH PO SCH (12:15)
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
[2020-01-27] MEDS: amLODIPine 5 MG TAB PO SCH (12:33)
[2020-01-27] MEDS ORDERED: VANCOMYCIN 1,000 MG in SODIUM CHLORIDE 0.9% 250 ML IVPB STA (13:19)
[2020-01-27] MEDS: diazePAM 2 MG TAB PO SCH ×3 (13:49→22:05)
[2020-01-27] MEDS: COLCHICINE 0.6 MG EACH PO SCH (13:50)
[2020-01-27] MEDS ORDERED: DEXTROSE 5% IN WATER 100 ML with AMIODARONE 150 MG IV ONE (14:00)
[2020-01-27] MEDS: ACETAMINOPHEN TAB 500 MG TAB PO PRN (19:41)
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
[2020-01-28] MEDS: NITROGLYCERIN OINT 1 INCH/GM PACKET TOPICAL SCH ×2 (00:15→07:32)
[2020-01-28] MEDS: ACETAMINOPHEN TAB 500 MG TAB PO PRN (02:50)
[2020-01-28] MEDS: ENOXAPARIN 80 MG/0.8 ML SYRINGE SQ SCH ×2 (02:52→14:22)
[2020-01-28] MEDS: AMIODARONE 200 MG TAB PO SCH ×2 (02:52→07:52)
[2020-01-28] MEDS: LORazepam 2 MG/ML INJ IV PRN ×4 (03:14→17:49)
[2020-01-28] MEDS: THIAMINE 100 MG TAB PO SCH ×2 (06:32→17:41)
[2020-01-28 06:43] LABS: Basophils # (A) 0.1 k/uL (0-0.2); Basophils % (A) 0 %; Eosinophils # (A) 0.5 k/uL (0-0.7); Eosinophils % (A) 4 %; HCT 30.4 % (39.0-53.0); HGB 9.6 gm/dL (13.0-17.5); Hypochromasia Slight; Lymphocytes # (A) 1.6 k/uL (1.0-4.8); Lymphocytes % (A) 13 %; MCHC 31.5 g/dL (31.0-37.0); MCV 95.4 fL (80.0-100.0); Mean Platelet Volume 7.8; Monocytes # (A) 0.6 k/uL (0-1.0); Monocytes % (A) 5 %; Neutrophils # (A) 9.5 k/uL (1.3-7.7); Neutrophils % (A) 76 %; Platelet Count 551 k/uL (150-450); RBC 3.19 m/uL (4.30-5.90); RDW 12.9 % (11.5-15.5); WBC 12.5 k/uL (3.8-10.6)
[2020-01-28 06:52] LABS: African American GFR (CKD) >90 (>60 ml/min/1.73 sqM); Anion Gap 9 mmol/L; Blood Urea Nitrogen 20 mg/dL (9-20); Calcium 8.5 mg/dL (8.4-10.2); Carbon Dioxide 22 mmol/L (22-30); Chloride 105 mmol/L (98-107); Glucose 91 mg/dL (74-99); Magnesium 2.1 mg/dL (1.6-2.3); Non-African American GFR(CKD) 82 (>60 ml/min/1.73 sqM); Potassium 4.4 mmol/L (3.5-5.1); Sodium 136 mmol/L (137-145)
[2020-01-28] MEDS: ATORVASTATIN 80 MG TAB PO SCH (07:42)
[2020-01-28] MEDS: diazePAM 2 MG TAB PO SCH ×3 (07:42→21:17)
[2020-01-28] MEDS: METOPROLOL TARTRATE 50 MG TAB PO SCH ×2 (07:42→21:17)
[2020-01-28] MEDS: MULTIVITAMINS, THERA 1 EACH TAB PO SCH (07:42)
[2020-01-28] MEDS: ASPIRIN 325 MG TAB PO SCH (07:42)
[2020-01-28] MEDS: PANTOPRAZOLE 40 MG TABLET PO SCH (07:42)
[2020-01-28] MEDS: CLOPIDOGREL 75 MG TAB PO SCH (07:42)
[2020-01-28] MEDS: COLCHICINE 0.6 MG EACH PO SCH (07:50)
--- NOTE | 2020-01-28 09:00 | P.PN ---
Subjective Progress Note Date: 01/28/20 Principal diagnosis: Atypical chest pain, leukocytosis with low grade fever, superficial sternal wound drainage, moderate pericardial effusion, paroxysmal atrial fibrillation. Previous medical history of recent STEMI with VF arrest, triple vessel CAD s/p 5V CABG, mild LV dysfunction with EF 40-45%, previous tobacco dependence with recent cessation, daily ETOH use, chronic low back pain. The patient is currently sitting up in bed in no acute distress. He states pain is well controlled on current medication regimen, denies shortness of breath. Has been ambulatory in the hallway without difficulty. Culture sent yesterday from lower sternal incision, lab apparently lost specimen, repeat specimen sent this morning, antibiotics already started yesterday. Patient had episode afib yesterday, given IV bolus amio and oral amio increased, currently sinus rhythm. Lasix given yesterday and colchicine started for possible pericarditis with pericardial effusion. No other new concerns. Objective - Vital Signs Vital signs: Vital Signs Temp 98.8 F 01/28/20 04:00 Pulse 116 H 01/27/20 15:00 Resp 18 01/28/20 04:00 BP 121/78 01/28/20 04:00 Pulse Ox 98 01/28/20 04:00 Intake & Output 01/27/20 01/28/20 01/28/20 18:59 06:59 18:59 Intake Total 427.773 Balance 427.773 Weight 78.9 kg Intake: IV 240 .9 @ 20 240 Intake, IV Titration 67.773 Amount Heparin Sod,Pork in 0.45% 67.773 NaCl 25,000 unit In 0.45 % NaCl 1 250ml.bag @ 12 UNITS/KG/HR 9.471 mls/hr IV .Q24H [facility] Rx#: [id number] Oral 120 Other: Voiding Method Toilet Urinal # Voids 1 - Constitutional General appearance: Present: cooperative, no acute distress - Respiratory Details: Lungs sounds diminished bilaterally. Respirations even, nonlabored. Currently on room air with oxygen saturation 98%. Able to achieve 3000 mL on his incentive spirometry. Strong cough. - Cardiovascular Details: S1, S2 present. Regular rate and rhythm, sinus rhythm on telemetry. Sternum stable. Palpable peripheral pulses bilaterally. No edema present. No calf pain or tenderness noted. - Gastrointestinal Gastrointestinal Comment(s): Abdomen soft, non-tender, non-distended. Active bowel sounds x4 quadrants. Tolerating diet. Postive flatus - Genitourinary Genitourinary Comment(s): Continues to void - Integumentary Integumentary Comment(s): Anterior chest incision well approximated. There is some oozing of thick brown fluid from the distal end of his sternal incision, less than yesterday. There is no fluctuance felt around any part of the incision and sternum is stable - Neurologic Neurologic: Present: CNII-XII intact - Musculoskeletal Musculoskeletal: Present: gait normal, strength equal bilaterally - Psychiatric Psychiatric: Present: A&O x's 3, appropriate affect, intact judgment & insight - Allied health notes Allied health notes reviewed: nursing - Labs CBC & Chem 7: 01/28/20 06:11 01/28/20 06:11 Labs: Abnormal Lab Results - Last 24 Hours (Table) 01/27/20 01/28/20 01/28/20 Range/Units 11:48 06:11 06:11 WBC 12.5 H (3.8-10.6) k/uL RBC 3.19 L (4.30-5.90) m/uL Hgb 9.6 L (13.0-17.5) gm/dL Hct 30.4 L (39.0-53.0) % Plt Count 551 H (150-450) k/uL Neutrophils # 9.5 H (1.3-7.7) k/uL APTT 35.2 H (22.0-30.0) sec Sodium 136 L (137-145) mmol/L Assessment and Plan Assessment: 1. Atypical chest pain 2. Leukocytosis, low-grade fever 3. Superficial drainage from distal sternal incision, culture pending, no evidence of deep sternal wound infection 4. Moderate pericardial effusion, possible pericarditis 5. Paroxysmal atrial fibrillation 6. Recent STEMI with V. fib arrest, triple vessel coronary artery disease s tatus post 5 vessel CABG 7. Mild LV dysfunction with EF 40-45% 8. Previous tobacco dependence with recent cessation 9. Continued daily EtOH use 10. Chronic low back pain Plan: 1. Continue aspirin, statin, plavix, beta mitesh. Will increase beta mitesh therapy as tolerated. 2. Continue CCB for radial artery prophylaxis. Do not discontinue without discussing with cardiac surgery 3. Continue amio for afib prophylaxis. 4. Continue IV abt. Await culture results for definitive abt regimen. Will consult ID 5. Continue colchicine 6. Encourage incentive spirometry. Encourage continued smoking cessation 7. Increase activity, ambulate in hallway 8. Patient to shower daily. Dressing change daily and PRN 9. Continue CIWA protocol. Encourage cessation of ETOH for now 10. Continue with post op lifting restrictions 11. Pain control with current medication regimen. 12. Management of other comorbidities per primary care service 13. More recommendations to follow Time with Patient: Greater than 30
[2020-01-28] MEDS ORDERED: DEXTROSE 5% IN WATER 100 ML with AMIODARONE 150 MG IV ONE (09:30)
[2020-01-28] MEDS ORDERED: AMIODARONE 360 MG in DEXTROSE 5% IN WATER 200 ML IV ONE ×2 (09:40)
--- NOTE | 2020-01-28 11:59 | P.PN ---
Subjective Progress Note Date: 01/28/20 Principal diagnosis: CAD and status post CABG This is a very pleasant 44-year-old gentleman with a past medical history significant for coronary artery disease and status post coronary artery bypass grafting, cardiomyopathy was EF between 40-45%, as well as history of alcohol ab use presented to the hospital complaining of chest discomfort. He was just discharged from the hospital after he was admitted with acute coronary syndrome complicated by cardiac arrest. Subsequently an emergent heart catheterization was performed and revealed severe triple-vessel coronary artery disease. The patient underwent after that coronary artery bypass grafting and he was discharged from the hospital in stable medical condition on day #5. Unfortunately he started drinking again. This past Monday he drank about 6 beers. He presented back with a chest discomfort, in the mid of the chest, as a sharp kind of discomfort worse with deep breath and better with resting. Currently the patient is chest pain-free. He was seen earlier by the cardiothoracic surgical team and a culture from the wound at the sternal was placed. Beside that an echocardiogram was performed and revealed moderate pericardial effusion. He was started on colchicine. I'm going to stop the heparin on him at this point. We'll continue following up with the patient. Beside that the EKG showed sinus rhythm with diffuse nonspecific ST and T wave abnormalities. The troponin was checked and came in to be slightly abnormal across support. The chest x-ray did not show any acute abnormalities. The patient was seen today, September [id number]. He has been in and out of atrial fibrillation and during the atrial fibrillation he is symptomatic. He was started on colchicine yesterday for possible pericarditis. We'll repeat the echocardiogram in the next 24-40 at hours to assess for any improvement in the p ericardial effusion. I am going to DC the amiodarone by mouth and start the patient on amiodarone IV. Also we might consider increasing the dose of metoprolol and decrease the dose of amlodipine if he continues to go in and out of atrial fibrillation in spite of the amiodarone IV. Hold on any ant icoagulation at this point in view of the pericardial effusion. Objective - Vital Signs Vital signs: Vital Signs Temp 98.5 F 01/28/20 11:00 Pulse 75 01/28/20 11:00 Resp 16 01/28/20 11:00 BP 111/76 01/28/20 11:00 Pulse Ox 98 01/28/20 11:00 Intake & Output 01/27/20 01/28/20 01/28/20 18:59 06:59 18:59 Intake Total 427.773 Balance 427.773 Weight 78.9 kg Intake: IV 240 .9 @ 20 240 Intake, IV Titration 67.773 Amount Heparin Sod,Pork in 0.45% 67.773 NaCl 25,000 unit In 0.45 % NaCl 1 250ml.bag @ 12 UNITS/KG/HR 9.471 mls/hr IV .Q24H [facility] Rx#: [id number] Oral 120 Other: Voiding Method Toilet Toilet Urinal Urinal # Voids 1 - Constitutional General appearance: Present: no acute distress - Respiratory Respiratory: bilateral: CTA - Cardiovascular Rhythm: regular Heart sounds: normal: S1, S2 - Labs CBC & Chem 7: 01/28/20 06:11 01/28/20 06:11 Labs: Abnormal Lab Results - Last 24 Hours (Table) 01/27/20 01/28/20 01/28/20 Range/Units 11:48 06:11 06:11 WBC 12.5 H (3.8-10.6) k/uL RBC 3.19 L (4.30-5.90) m/uL Hgb 9.6 L (13.0-17.5) gm/dL Hct 30.4 L (39.0-53.0) % Plt Count 551 H (150-450) k/uL Neutrophils # 9.5 H (1.3-7.7) k/uL APTT 35.2 H (22.0-30.0) sec Sodium 136 L (137-145) mmol/L Assessment and Plan Assessment: Assessment #1 status post coronary artery bypass grafting #2 severe triple-vessel coronary artery disease #3 atypical/pleuritic chest discomfort #4 possible pericarditis #5 paroxysmal atrial fibrillation Plan #1 DC amiodarone by mouth and start the patient on amiodarone IV #2 consider increasing the dose of metoprolol and decrease the dose of Norvasc if he continues to be in and out atrial fibrillation #3 hold any anticoagulation in view of the pericardial effusion #4 follow-up with the patient
[2020-01-28] MEDS: amLODIPine 5 MG TAB PO SCH (12:50)
[2020-01-28] MEDS: AMIODARONE 300 MG in DEXTROSE 5% IN WATER 250 ML IV SCH ×2 (16:01)
--- NOTE | 2020-01-28 22:15 | P.PN ---
Progress Note - Text Progress Note Date: 01/28/20 Chief Complaint: Left chest sharp pain History of presenting complaint: This is a pleasant 44-year-old patient of Dr. Wesley Hoffman. Recently in the hospital from January 15, through January 21. Patient was admitted with ST elevation microinfarction also had the V. fib arrest with 2 minutes of code time. Cardiac catheterization was done urgently that showed diffuse disease. Patient status post coronary bypass. Patient had been smoking up to the event and also drinking alcohol. Patient now presents with left sharp pain below the left infraclavicular area. Increase with deep breathing. His cough. Some clear sputum. He did try a couple of beers yesterday. Otherwise he had been doing okay at home. Breathing and otherwise has been stable. No cough swelling. No fever no chills. There is some drainage from the chest wall sternal incision site. Cultures were sent off today. Patient earlier had been somewhat shaky. Anxious. Admitted with vital pleurisy. Also infection of the sternal incision. Today-Venus from cardiothoracic team informed be that the lab never received the cultures. Repeat culture was sent off. Patient rather disappointed about his stay in the hospital. Dressing over the sternum. Patient also went into atrial fibrillation. Started IV amiodarone. Review of systems: Was done for constitutional, cardiovascular, GI, pulmonary. relevant finding as above Active Medications Acetaminophen (Tylenol Tab) 1,000 mg PO Q6HR PRN PRN Reason: Fever and/ or Pain Last Admin: 01/28/20 02:50 Dose: 1,000 mg Documented by: Hydrocodone Bitart/Acetaminophen ([place] 5-325) 2 each PO Q6HR PRN PRN Reason: Pain Last Admin: 01/27/20 01:05 Dose: 2 each Documented by: Amlodipine Besylate (Norvasc) 5 mg PO DAILY@1200 [facility] Last Admin: 01/28/20 12:50 Dose: 5 mg Documented by: Aspirin (Aspirin) 325 mg PO DAILY@0800 [facility] Last Admin: 01/28/20 07:42 Dose: 325 mg Documented by: Atorvastatin Calcium (Lipitor) 80 mg PO DAILY@0800 [facility] Last Admin: 01/28/20 07:42 Dose: 80 mg Documented by: Clopidogrel Bisulfate (Plavix) 75 mg PO DAILY@0800 [facility] Last Admin: 01/28/20 07:42 Dose: 75 mg Documented by: Colchicine (Colcrys) 0.6 mg PO DAILY [facility] Last Admin: 01/28/20 07:50 Dose: 0.6 mg Documented by: Diazepam (Valium) 1 mg PO TID [facility] Last Admin: 01/28/20 21:17 Dose: 1 mg Documented by: Enoxaparin Sodium (Lovenox) 70 mg SQ Q12H [facility] Last Admin: 01/28/20 14:22 Dose: 70 mg Documented by: Cefazolin Sodium 2 gm/ Sodium (Chloride) 50 mls @ 100 mls/hr IVPB Q8HR [facility] Last Admin: 01/28/20 16:22 Dose: 100 mls/hr Documented by: Amiodarone HCl 300 mg/ (Dextrose/Water) 250 mls @ 25 mls/hr IV .Q10H [facility]; Protocol Stop: 01/29/20 09:39 Last Admin: 01/28/20 16:01 Dose: 0.5 mg/min, 25 mls/hr Documented by: Lorazepam (Ativan) 1 mg IV Q2HR PRN PRN Reason: CIWA 8 or 9 Last Admin: 01/28/20 17:49 Dose: 1 mg Documented by: Lorazepam (Ativan) 1 mg IV Q1HR PRN PRN Reason: CIWA 10 to 15 Lorazepam (Ativan) 2 mg IV Q10M PRN PRN Reason: CIWA 16 or higher Stop: 01/28/20 22:36 Last Admin: 01/26/20 23:08 Dose: 2 mg Documented by: Metoprolol Tartrate (Lopressor) 50 mg PO BID@0800,1999 [facility] Last Admin: 01/28/20 21:17 Dose: 50 mg Documented by: Multivitamins (Theragran) 1 each PO DAILY@0800 [facility] Last Admin: 01/28/20 07:42 Dose: 1 each Documented by: Nitroglycerin (Nitrostat) 0.4 mg SUBLINGUAL Q5M PRN PRN Reason: Chest Pain Pantoprazole Sodium (Protonix) 40 mg PO AC-BRKFST@0800 [facility] Last Admin: 01/28/20 07:42 Dose: 40 mg Documented by: Thiamine HCl (Vitamin B-1) 100 mg PO BID-W/MEALS [facility] Last Admin: 08/04/20 17:41 Dose: 100 mg Documented by: Physical examination: VITAL SIGNS: 98.5, 75, 16, 111/76, 98% room air GENERAL: Laying in bed, not in distress. EYES: Pupils equal. Conjunctiva normal. HEENT: External appearance of nose and ears normal, oral cavity grossly normal. NECK: JVD not raised; masses not palpable. HEART: First and second heart sounds are normal; no edema. LUNGS: Respiratory rate normal; slightly decreased breath sounds. CHEST wall: Lower sternum incision with a dark coleman- brownish drainage ABDOMEN: Soft, nontender, liver spleen not palpable, no masses palpable. PSYCH: Alert and oriented x3; mood and affect anxious INVESTIGATIONS, reviewed in the clinical context: White count 12.5 hemoglobin 9.6 platelets 551 potassium 4.4 creatinine 1.09 Previous testing White count 14.6 hemoglobin 10.7 platelets 541 potassium 4.4 creatinine 0.97 Troponin I 0.118, 0.138, 0.171 ProBNP 1490, LDL 48 EKG tracing personally reviewed by me-flipped T waves in V2 through V6 Chest x-ray film personally reviewed by me-some cardiomegaly, no infiltrates Assessment: -Patient presented to sharp left infraclavicular chest pain and some pleuritic nature slight cough. Possibly vital pleurisy. -Acute sternal incision infection with cellulitis and drainage. -CABG -Mild hypoalbuminemia reactive -Acute postprocedure blood loss anemia as expected from surgery -Reactive thrombocytosis -Paroxysmal atrial fibrillation currently atrial fibrillation -Chronic alcohol disorder -Early alcohol withdrawal syndrome. Plan: Repeat cultures have been sent out. Care was discussed with the patient and at the bedside. ID was consulted. Patient IV Ancef. IV amiodarone.
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
[2020-01-29] MEDS: ACETAMINOPHEN TAB 500 MG TAB PO PRN ×3 (00:41→20:25)
[2020-01-29] MEDS: AMIODARONE 300 MG in DEXTROSE 5% IN WATER 250 ML IV SCH ×2 (02:20)
[2020-01-29] MEDS: THIAMINE 100 MG TAB PO SCH ×2 (05:44→16:29)
[2020-01-29] MEDS: ENOXAPARIN 80 MG/0.8 ML SYRINGE SQ SCH ×2 (05:44→16:30)
--- NOTE | 2020-01-29 07:05 | XR ---
EXAMINATION TYPE: XR chest 2V DATE OF EXAM: 01/29/2020 COMPARISON: CTA chest and chest x-ray January 26, 2020. HISTORY: Post open cardiac surgery. TECHNIQUE: Frontal and lateral views of the chest are obtained. FINDINGS: Overlying sternal wires and mediastinal clips are redemonstrated. Persistent and slightly m ore prominent small bilateral pleural effusions with associated left greater than right bibasilar ate lectasis and/or infiltrate. Some interstitial edema in the periphery of the lower lungs. Stable mild cardiomegaly with ectatic thoracic aorta. Osseous structures are intact. IMPRESSION: Persistent cardiomegaly with worsening small bilateral pleural effusions and new mild in terstitial edema suggests worsening CHF exacerbation or fluid overload state. Correlate clinically. I ncreasing bibasilar acute infiltrate and/or atelectasis also noted. Correlate clinically.
[2020-01-29 08:15] LABS: HCT 29.8 % (39.0-53.0); HGB 9.6 gm/dL (13.0-17.5); Hypochromasia Slight; MCH 30.9 pg (25.0-35.0); MCHC 32.2 g/dL (31.0-37.0); MCV 96.1 fL (80.0-100.0); Mean Platelet Volume 7.8; Platelet Count 564 k/uL (150-450); RDW 13.1 % (11.5-15.5); WBC 11.1 k/uL (3.8-10.6)
[2020-01-29 08:28] LABS: African American GFR (CKD) >90 (>60 ml/min/1.73 sqM); Anion Gap 7 mmol/L; Blood Urea Nitrogen 16 mg/dL (9-20); Calcium 8.6 mg/dL (8.4-10.2); Carbon Dioxide 23 mmol/L (22-30); Chloride 106 mmol/L (98-107); Glucose 133 mg/dL (74-99); Non-African American GFR(CKD) >90 (>60 ml/min/1.73 sqM); Potassium 4.1 mmol/L (3.5-5.1); Sodium 136 mmol/L (137-145)
[2020-01-29] MEDS: ATORVASTATIN 80 MG TAB PO SCH (09:00)
[2020-01-29] MEDS: diazePAM 2 MG TAB PO SCH ×3 (09:00→22:33)
[2020-01-29] MEDS: MULTIVITAMINS, THERA 1 EACH TAB PO SCH (09:00)
[2020-01-29] MEDS: ASPIRIN 325 MG TAB PO SCH (09:00)
[2020-01-29] MEDS: PANTOPRAZOLE 40 MG TABLET PO SCH (09:01)
[2020-01-29] MEDS: CLOPIDOGREL 75 MG TAB PO SCH (09:01)
[2020-01-29] MEDS: METOPROLOL TARTRATE 50 MG TAB PO SCH ×2 (09:01→20:26)
[2020-01-29] MEDS: COLCHICINE 0.6 MG EACH PO SCH (09:12)
[2020-01-29] MEDS: AMIODARONE 200 MG TAB PO SCH ×2 (11:12→20:26)
[2020-01-29] MEDS: amLODIPine 5 MG TAB PO SCH (11:12)
--- NOTE | 2020-01-29 11:46 | P.PN ---
Subjective Progress Note Date: 01/29/20 Principal diagnosis: Atypical chest pain, leukocytosis with low grade fever, superficial sternal wound drainage, moderate pericardial effusion, paroxysmal atrial fibrillation. Past medical history significant for recent STEMI with VF arrest, triple vessel CAD s/p five-vessel CABG on 01/17/2020, mild LV dysfunction with EF 40-45%, previous tobacco dependence with recent cessation, daily ETOH use, chronic low back pain. The patient was seen in follow-up today 01/29/2020 at his bedside on the cardiac stepdown unit. He is awake, alert and oriented 3 sitting up to the bedside edge and is in no acute distress. He continues to have scant serous/purulent drainage from his distal mediastinal incision. Gram stain shows no organisms seen and no polymorponuclear leukocytes. Anaerobic wound culture remains pending. He remains on cefazolin for antibiotic coverage managed by infectious disease. The patient reports that his left upper chest pain has improved since his admission. Denies any complaints of shortness of breath. Remote telemetry showing normal sinus rhythm heart rate 67, no further episodes of atrial fibrillation reported. Continues on amiodarone drip at 0.5 mg/m. Oxygen saturations are 99% on room air and he is achieving 3250 mL on his incentive spi rometry. Due to the findings of moderate generalized pericardial effusion seen on his 2-D echocardiogram he remains on colchicine for possible pericarditis with pericardial effusion. Objective - Vital Signs Vital signs: Vital Signs Temp 98.8 F 01/29/20 08:00 Pulse 82 01/29/20 08:00 Resp 18 01/29/20 08:00 BP 118/79 01/29/20 08:00 Pulse Ox 99 01/29/20 08:00 Intake & Output 01/28/20 01/29/20 01/29/20 18:59 06:59 18:59 Intake Total 750 540 Output Total 475 Balance 275 540 Weight 77.9 kg Intake: Intake, IV Titration 450 200 Amount Amiodarone 300 mg In 100 Dextrose 5% in Water 250 ml @ 0.5 MG/MIN 25 mls/hr IV .Q10H [facility] Rx#: [id number] Amiodarone 360 mg In 250 Dextrose 5% in Water 200 ml @ 1 MG/MIN 33.333 mls/ hr IV .Q6H [facility] Rx#: [id number] Dextrose 5% in Water 100 100 ml @ 618 mls/hr IV .Q10M ONE with Amiodarone 150 mg Rx#:[id number] ceFAZolin 2 gm In Sodium 100 100 Chloride 0.9% 50 ml @ 100 mls/hr IVPB Q8HR [facility] Rx# :[id number] Oral 300 340 Output: Urine 475 Other: Voiding Method Toilet Toilet Urinal Urinal # Voids 1 1 # Bowel Movements 1 2 - Constitutional General appearance: Present: average body habitus, cooperative, no acute distr ess - EENT Eyes: Present: PERRLA, normal appearance. Absent: scleral icterus ENT: Present: hearing grossly normal - Neck Details: Neck is supple, no JVD. No lymphadenopathy. - Respiratory Details: Lungs sounds essentially clear to his bilateral upper lobes, diminished to his bilateral bases with few scattered crackles. No wheezes, or rhonchi. Respi rations are symmetrical and nonlabored. Oxygen saturation are 99% on room air and he is achieving 3250 mL on his incentive spirometry. - Cardiovascular Details: Regular rhythm and rate. S1 and S2 present, negative for S3, gallop or murmur. Sternum is stable. Heart hugger is in place and he is demonstrating appropriate use. No edema present. Knee-high LARRY hose in place to his bilateral lower extremities. - Gastrointestinal Gastrointestinal Comment(s): Abdomen is soft, nontender and nondistended. Active bowel sounds present in all 4 abdominal quadrants. No guarding or rigidity. Tolerating oral intake. - Genitourinary Genitourinary Comment(s): Continues to void. - Integumentary Integumentary Comment(s): Skin is warm and dry. No clubbing or cyanosis is present. Midline sternal incision remains approximated and without redness. Scant serous/purulent drainage to his distal mediastinal incision. There is no fluctuance and his sternum is stable. - Neurologic Neurologic: Present: CNII-XII intact - Musculoskeletal Musculoskeletal: Present: gait normal, strength equal bilaterally - Psychiatric Psychiatric: Present: A&O x's 3, appropriate affect, intact judgment & insight - Allied health notes Allied health notes reviewed: nursing - Labs CBC & Chem 7: 01/29/20 07:41 01/29/20 07:41 Labs: Abnormal Lab Results - Last 24 Hours (Table) 01/28/20 01/29/2020 Range/Units 06:11 07:41 07:41 WBC 11.1 H (3.8-10.6) k/uL RBC 3.10 L (4.30-5.90) m/uL Hgb 9.6 L (13.0-17.5) gm/dL Hct 29.8 L (39.0-53.0) % Plt Count 564 H (150-450) k/uL Sodium 136 L (137-145) mmol/L Glucose 133 H (74-99) mg/dL Procalcitonin 0.21 H (0.02-0.09) ng/mL Microbiology - Last 24 Hours (Table) 01/28/20 08:00 Gram Stain - Preliminary Other - Other Wound Culture - Preliminary 01/28/20 08:00 Anaerobic Culture - Preliminary Surgery - Imaging and Cardiology Chest x-ray: report reviewed, image reviewed Assessment and Plan Assessment: 1. Atypical chest pain 2. Leukocytosis, low-grade fever 3. Superficial drainage from distal sternal incision, anaerobic culture pending, no evidence of deep sternal wound infection 4. Moderate pericardial effusion, possible pericarditis 5. Paroxysmal atrial fibrillation 6. Recent STEMI with V. fib arrest, triple vessel coronary artery disease status post 5 vessel CABG 7. Mild LV dysfunction with EF 40-45% 8. Previous tobacco dependence with recent cessation 9. Continued daily EtOH use 10. Chronic low back pain Plan: 1. Continue aspirin, statin, plavix, and beta mitesh. Will increase beta mitesh as tolerated. 2. Continue calcium channel mitesh for radial artery prophylaxis. Do not discontinue without discussing with cardiac surgery. 3. Continue amiodarone for afib prophylaxis. 4. Continue IV antibiotics. Managed by infectious disease. Will need a PICC line for home antibiotic infusions. Awaiting culture results for definitive antibiotic regimen. 5. Continue colchicine for a total of 5 days. 6. Encourage incentive spirometry. Encourage continued smoking cessation. 7. Increase activity, ambulate in hallway. 8. Patient to shower daily. Dressing change daily and PRN to his mediastinal incision. 9. Continue CIWA protocol. Encourage cessation of ETOH. 10. Continue with post op lifting restrictions. 11. Pain control with current medication regimen. 12. Management of other comorbidities per primary care service. 13. We will repeat his 2-D echocardiogram on 01/30/2020 to reevaluate his pericardial effusion. 14. More recommendations to follow based on patient's clinical course. Time with Patient: Greater than 30
--- NOTE | 2020-01-29 14:36 | P.PN ---
Subjective Progress Note Date: 01/29/20 CHIEF COMPLAINT: CAD HISTORY OF PRESENT ILLNESS: Patient examined this morning at the bedside. He is complaining of chest discomfort this morning and states they expressed some purulent fluid from his sternal incision prior to my examination. He denies shortness of breath. Patient remains on an amiodarone drip. He has been maintaining sinus rhythm overnight and this morning. Heart rate is controlled. Blood pressure stable. Chest x-ray reveals persistent cardiomegaly with worsening small bilateral pleural effusions and new mild interstitial edema suggesting worsening CHF exacerbation or fluid overload state. Fluid balance over the last 24 hours is +815 mL. Patient's weight is down 1 kg. PHYSICAL EXAM: VITAL SIGNS: Reviewed. GENERAL: Well-developed in no acute distress. NECK: Supple. No JVD or thyromegaly LUNGS: Respirations even and unlabored. Lungs essentially clear to auscultation bilaterally. HEART: Regular rate and rhythm. S1 and S2 heard. EXTREMITIES: Normal range of motion. No clubbing or cyanosis. Peripheral pulses intact. No lower extremity edema ASSESSMENT: #1 status post coronary artery bypass grafting #2 severe triple-vessel coronary artery disease #3 atypical/pleuritic chest discomfort #4 possible pericarditis #5 paroxysmal atrial fibrillation PLAN: -Will discontinue IV amiodarone and start the patient on oral amiodarone 400 mg BID -Continue colchicine for possible pericarditis -Continue metoprolol and Norvasc -Will repeat echo tomorrow morning to evaluate pleural effusion Nurse practitioner note has been reviewed by physician. Signing provider agrees with the documented findings, assessment, and plan of care. Objective - Vital Signs Vital signs: Vital Signs Temp 98.8 F 01/29/20 08:00 Pulse 82 01/29/20 08:00 Resp 18 01/29/20 08:00 BP 118/79 01/29/20 08:00 Pulse Ox 99 01/29/20 08:00 Intake & Output 01/28/20 01/29/20 01/29/20 18:59 06:59 18:59 Intake Total 750 540 Output Total 475 Balance 275 540 Weight 77.9 kg Intake: Intake, IV Titration 450 200 Amount Amiodarone 300 mg In 100 Dextrose 5% in Water 250 ml @ 0.5 MG/MIN 25 mls/hr IV .Q10H [facility] Rx#: [id number] Amiodarone 360 mg In 250 Dextrose 5% in Water 200 ml @ 1 MG/MIN 33.333 mls/ hr IV .Q6H [facility] Rx#: [id number] Dextrose 5% in Water 100 100 ml @ 618 mls/hr IV .Q10M [facility] with Amiodarone 150 mg Rx#:[id number] ceFAZolin 2 gm In Sodium 100 100 Chloride 0.9% 50 ml @ 100 mls/hr IVPB Q8HR [facility] Rx# :[id number] Oral 300 340 Output: Urine 475 Other: Voiding Method Toilet Toilet Urinal Urinal # Voids 1 1 # Bowel Movements 1 2 - Labs CBC & Chem 7: 01/29/20 07:41 01/29/20 07:41 Labs: Abnormal Lab Results - Last 24 Hours (Table) 01/28/20 01/29/20 01/29/20 Range/Units 06:11 07:41 07:41 WBC 11.1 H (3.8-10.6) k/uL RBC 3.10 L (4.30-5.90) m/uL Hgb 9.6 L (13.0-17.5) gm/dL Hct 29.8 L (39.0-53.0) % Plt Count 564 H (150-450) k/uL Sodium 136 L (137-145) mmol/L Glucose 133 H (74-99) mg/dL Procalcitonin 0.21 H (0.02-0.09) ng/mL Microbiology - Last 24 Hours (Table) 01/28/20 08:00 Gram Stain - Preliminary Other - Other Wound Culture - Preliminary 01/28/20 08:00 Anaerobic Culture - Preliminary Surgery
[2020-01-29] MEDS ORDERED: LOPERAMIDE 2 MG CAP PO PRN (17:30)
--- NOTE | 2020-01-29 18:54 | PN ---
PROGRESS NOTE DATE OF SERVICE: 01/29/2020 REASON FOR FOLLOWUP: Sternal cellulitis and drainage. INTERVAL HISTORY: The patient is currently afebrile. The patient has been feeling better. The patient's left-sided chest pain has improved. He still has some drainage from the midline central incision. No shortness of breath or cough. No abdominal pain or diarrhea. PHYSICAL EXAMINATION: Blood pressure is 118/79 with a pulse of 73, temperature 98.8. He is 99% on room air. General description is a middle-aged male up in the chair in no distress. RESPIRATORY SYSTEM: Unlabored breathing with decreased breath sounds at the base. No wheeze. HEART: S1, S2. Regular rate and rhythm. ABDOMEN: Soft. No tenderness. The incision was just changed by the nurse practitioner and had minimal drainage. LABS: Hemoglobin 9.6, white count 11.1, creatinine 1.01. Wound cultures are currently pending. DIAGNOSTIC IMPRESSION AND PLAN: Patient with chest wall drainage with recent bypass surgery. CT did not show any deep collection. Patient is currently covered with cefazolin; to continue. Cultures will be followed to determine his discharge antibiotics. Continue with supportive care. MMODL / IJN: [id number] /
[2020-01-29] MEDS: CEPHALEXIN 500 MG CAP PO SCH ×2 (19:04→22:33)
--- NOTE | 2020-01-29 22:42 | P.PN ---
Progress Note - Text Progress Note Date: 01/29/20 Chief Complaint: Left chest sharp pain History of presenting complaint: This is a pleasant 44-year-old patient of Dr. Wesley Hoffman. Recently in the hospital from January 15, through January 21. Patient was admitted with ST elevation microinfarction also had the V. fib arrest with 2 minutes of code time. Cardiac catheterization was done urgently that showed diffuse disease. Patient status post coronary bypass. Patient had been smoking up to the event and also drinking alcohol. Patient now presents with left sharp pain below the left infraclavicular area. Increase with deep breathing. His cough. Some clear sputum. He did try a couple of beers yesterday. Otherwise he had been doing okay at home. Breathing and otherwise has been stable. No cough swelling. No fever no chills. There is some drainage from the chest wall sternal incision site. Cultures were sent off today. Patient earlier had been somewhat shaky. Anxious. Admitted with vital pleurisy. Also infection of the sternal incision. On IV Ancef. Also went into A. fib with rapid ventricular. Put on IV amiodarone. Today-less drainage from the incision site. Feeling better. Heart rate better controlled. Has been out of bed.. Review of systems: Was done for constitutional, cardiovascular, GI, pulmonary. relevant finding as above Active Medications Acetaminophen (Tylenol Tab) 1,000 mg PO Q6HR PRN PRN Reason: Fever and/ or Pain Last Admin: 01/29/20 20:25 Dose: 1,000 mg Documented by: Hydrocodone Bitart/Acetaminophen (Wilbur 5-325) 2 each PO Q6HR PRN PRN Reason: Pain Last Admin: 01/27/20 01:05 Dose: 2 each Documented by: Amiodarone HCl (Cordarone) 400 mg PO BID [facility] Last Admin: 01/29/20 20:26 Dose: 400 mg Documented by: Amlodipine Besylate (Norvasc) 5 mg PO DAILY@1200 [facility] Last Admin: 01/29/20 11:12 Dose: 5 mg Documented by: Aspirin (Aspirin) 325 mg PO DAILY@0800 [facility] Last Admin: 01/29/20 09:00 Dose: 325 mg Documented by: Atorvastatin Calcium (Lipitor) 80 mg PO DAILY@0800 [facility] Last Admin: 01/29/20 09:00 Dose: 80 mg Documented by: Cephalexin (Keflex) 500 mg PO Q6HR [facility] Last Admin: 01/29/20 22:33 Dose: 500 mg Documented by: Clopidogrel Bisulfate (Plavix) 75 mg PO DAILY@0800 [facility] Last Admin: 01/29/20 09:01 Dose: 75 mg Documented by: Colchicine (Colcrys) 0.6 mg PO DAILY [facility] Last Admin: 01/29/20 09:12 Dose: 0.6 mg Documented by: Diazepam (Valium) 1 mg PO TID [facility] Last Admin: 01/29/20 22:33 Dose: 1 mg Documented by: Enoxaparin Sodium (Lovenox) 70 mg SQ Q12H [facility] Last Admin: 01/29/20 16:30 Dose: 70 mg Documented by: Cefazolin Sodium 2 gm/ Sodium (Chloride) 50 mls @ 100 mls/hr IVPB Q8HR [facility] Last Admin: 01/29/20 16:35 Dose: 100 mls/hr Documented by: Loperamide HCl (Imodium) 2 mg PO QID PRN PRN Reason: Diarrhea Lorazepam (Ativan) 1 mg IV Q2HR PRN PRN Reason: CIWA 8 or 9 Last Admin: 01/28/20 17:49 Dose: 1 mg Documented by: Lorazepam (Ativan) 1 mg IV Q1HR PRN PRN Reason: CIWA 10 to 15 Metoprolol Tartrate (Lopressor) 50 mg PO BID@799,1999 [facility] Last Admin: 01/29/20 20:26 Dose: 50 mg Documented by: Multivitamins (Theragran) 1 each PO DAILY@0800 [facility] Last Admin: 01/29/20 09:00 Dose: 1 each Documented by: Nitroglycerin (Nitrostat) 0.4 mg SUBLINGUAL Q5M PRN PRN Reason: Chest Pain Pantoprazole Sodium (Protonix) 40 mg PO AC-BRKFST@0800 [facility] Last Admin: 01/29/20 09:01 Dose: 40 mg Documented by: Thiamine HCl (Vitamin B-1) 100 mg PO BID-W/MEALS [facility] Last Admin: 01/29/20 16:29 Dose: 100 mg Documented by: Physical examination: VITAL SIGNS: 98.5, 71, 18, 118/83, 100% on room air GENERAL: Laying in bed, comfortable EYES: Pupils equal. Conjunctiva normal. HEENT: External appearance of nose and ears normal, oral cavity grossly normal. NECK: JVD not raised; masses not palpable. HEART: First and second heart sounds are normal; no edema. LUNGS: Respiratory rate normal; slightly decreased breath sounds. CHEST wall: Lower sternum incision with a slight drainage ABDOMEN: Soft, nontender, liver spleen not palpable, no masses palpable. PSYCH: Alert and oriented x3; mood and affect anxious INVESTIGATIONS, reviewed in the clinical context: White count 11.1 hemoglobin 9.6 potassium 4.1 Wound cultures-pending Previous testing White count 14.6 hemoglobin 10.7 platelets 541 potassium 4.4 creatinine 0.97 Troponin I 0.118, 0.138, 0.171 ProBNP 1490, LDL 48 EKG tracing personally reviewed by me-flipped T waves in V2 through V6 Chest x-ray film personally reviewed by me-some cardiomegaly, no infiltrates Pro-calcitonin 0.21 Assessment: -Patient presented to sharp left infraclavicular chest pain and some pleuritic nature slight cough. Possibly vital pleurisy. -Acute sternal incision infection with cellulitis and drainage. -CABG -Mild hypoalbuminemia reactive -Acute postprocedure blood loss anemia as expected from surgery -Reactive thrombocytosis -Paroxysmal atrial fibrillation currently atrial fibrillation -Chronic alcohol disorder -Early alcohol withdrawal syndrome.-Improved Plan: IV Ancef. By mouth amiodarone. Discussed with the patient. Cultures pending. Has been out of bed. Sternal wound drainage has gone down
[2020-01-30] MEDS: ENOXAPARIN 80 MG/0.8 ML SYRINGE SQ SCH ×2 (05:52→15:36)
[2020-01-30] MEDS: CEPHALEXIN 500 MG CAP PO SCH ×2 (05:52→12:25)
[2020-01-30] MEDS: THIAMINE 100 MG TAB PO SCH (05:56)
[2020-01-30 06:53] LABS: Basophils # (A) 0.1 k/uL (0-0.2); Basophils % (A) 1 %; Eosinophils # (A) 0.5 k/uL (0-0.7); Eosinophils % (A) 6 %; HCT 31.5 % (39.0-53.0); HGB 9.7 gm/dL (13.0-17.5); Hypochromasia Slight; Lymphocytes # (A) 1.7 k/uL (1.0-4.8); Lymphocytes % (A) 18 %; MCH 29.9 pg (25.0-35.0); MCHC 30.9 g/dL (31.0-37.0); MCV 96.6 fL (80.0-100.0); Mean Platelet Volume 7.7; Monocytes # (A) 0.5 k/uL (0-1.0); Monocytes % (A) 5 %; Neutrophils # (A) 6.7 k/uL (1.3-7.7); Neutrophils % (A) 70 %; Platelet Count 663 k/uL (150-450); RBC 3.26 m/uL (4.30-5.90); RDW 13.3 % (11.5-15.5); WBC 9.7 k/uL (3.8-10.6)
[2020-01-30 07:02] LABS: African American GFR (CKD) >90 (>60 ml/min/1.73 sqM); Anion Gap 7 mmol/L; Blood Urea Nitrogen 13 mg/dL (9-20); Calcium 8.8 mg/dL (8.4-10.2); Carbon Dioxide 23 mmol/L (22-30); Chloride 107 mmol/L (98-107); Glucose 120 mg/dL (74-99); Non-African American GFR(CKD) 87 (>60 ml/min/1.73 sqM); Potassium 4.5 mmol/L (3.5-5.1); Sodium 137 mmol/L (137-145)
[2020-01-30] MEDS: ASPIRIN 325 MG TAB PO SCH (08:41)
[2020-01-30] MEDS: diazePAM 2 MG TAB PO SCH (08:42)
[2020-01-30] MEDS: PANTOPRAZOLE 40 MG TABLET PO SCH (08:42)
[2020-01-30] MEDS: ATORVASTATIN 80 MG TAB PO SCH (08:42)
[2020-01-30] MEDS: CLOPIDOGREL 75 MG TAB PO SCH (08:42)
[2020-01-30] MEDS: AMIODARONE 200 MG TAB PO SCH (08:42)
[2020-01-30] MEDS: MULTIVITAMINS, THERA 1 EACH TAB PO SCH (08:42)
[2020-01-30] MEDS: METOPROLOL TARTRATE 50 MG TAB PO SCH (08:42)
[2020-01-30] MEDS: COLCHICINE 0.6 MG EACH PO SCH (08:42)
[2020-01-30] MEDS ORDERED: LIDOCAINE 1% INJ 10MG/ML (20 ML MDV) ONE (08:59)
--- NOTE | 2020-01-30 09:12 | P.PN ---
Subjective Progress Note Date: 01/30/20 Principal diagnosis: Atypical chest pain, leukocytosis with low grade fever, superficial sternal wound drainage, moderate pericardial effusion, paroxysmal atrial fibrillation. Previous medical history of recent STEMI with VF arrest, triple vessel CAD s/p 5V CABG, mild LV dysfunction with EF 40-45%, previous tobacco dependence with recent cessation, daily ETOH use, chronic low back pain. The patient is currently sitting up in a recliner in no acute distress. He states pain is well controlled on current medication regimen, denies shortness of breath. Has been ambulatory in the hallway without difficulty. WBC this AM 9.7. Drainage from sternal incision less than yesterday. Repeat echo reviewed by Dr. Lorenz and Dr. Lagunas. Patient to receive PICC today for home anti biotics per ID. Patient anxious to go home. No new concerns Objective - Vital Signs Vital signs: Vital Signs Temp 98.6 F 01/30/20 04:00 Pulse 72 01/30/20 04:00 Resp 16 01/30/20 04:00 BP 120/74 01/30/20 04:00 Pulse Ox 97 01/30/20 04:00 Intake & Output 01/29/20 01/30/20 01/30/20 18:59 06:59 18:59 Intake Total 400 600 Balance 400 600 Weight 76.6 kg Intake: Oral 400 600 Other: Voiding Method Toilet Urinal # Voids 3 1 # Bowel Movements 2 - Constitutional General appearance: Present: cooperative, no acute distress - Respiratory Details: Lungs sounds diminished bilaterally. Respirations even, nonlabored. Currently on room air with oxygen saturation 97%. Able to achieve 3500 mL on his incentive spirometry. Strong cough. - Cardiovascular Details: S1, S2 present. Regular rate and rhythm, sinus rhythm on telemetry. Sternum stable. Palpable peripheral pulses bilaterally. No edema present. No calf pain or tenderness noted. - Gastrointestinal Gastrointestinal Comment(s): Abdomen soft, non-tender, non-distended. Active bowel sounds x4 quadrants. Tolerating diet. Postive flatus - Genitourinary Genitourinary Comment(s): Continues to void - Integumentary Integumentary Comment(s): Anterior chest incision well approximated. There is some oozing of thin hagan fluid from the distal end of his sternal incision, less than yesterday. There is no fluctuance felt around any part of the incision and sternum is stable - Neurologic Neurologic: Present: CNII-XII intact - Musculoskeletal Musculoskeletal: Present: gait normal, strength equal bilaterally - Psychiatric Psychiatric: Present: A&O x's 3, appropriate affect, intact judgment & insight - Allied health notes Allied health notes reviewed: nursing - Labs CBC & Chem 7: 01/30/20 06:26 08 06:26 Labs: Abnormal Lab Results - Last 24 Hours (Table) 01/30/20 01/30/20 Range/Units 06:26 06:26 RBC 3.26 L (4.30-5.90) m/uL Hgb 9.7 L (13.0-17.5) gm/dL Hct 31.5 L (39.0-53.0) % MCHC 30.9 L (31.0-37.0) g/dL Plt Count 663 H (150-450) k/uL Glucose 120 H (74-99) mg/dL Microbiology - Last 24 Hours (Table) 01/28/20 17:00 Blood Culture - Preliminary Blood No Growth after 24 hours 01/28/20 08:00 Gram Stain - Preliminary Other - Other Wound Culture - Preliminary Assessment and Plan Assessment: 1. Atypical chest pain 2. Leukocytosis, low-grade fever 3. Superficial drainage from distal sternal incision, culture pending, gram stain negative, no evidence of deep sternal wound infection 4. Moderate pericardial effusion, possible pericarditis 5. Paroxysmal atrial fibrillation 6. Recent STEMI with V. fib arrest, triple vessel coronary artery disease status post 5 vessel CABG 7. Mild LV dysfunction with EF 40-45% 8. Previous tobacco dependence with recent cessation 9. Continued daily EtOH use 10. Chronic low back pain Plan: 1. Continue aspirin, statin, plavix, beta mitesh. 2. Continue CCB for radial artery prophylaxis. Do not discontinue without discussing with cardiac surgery 3. Continue amio for afib prophylaxis. 4. Continue IV abt. Await culture results for definitive abt regimen. Vanco vs. Ancef per ID, from CV surgery standpoint would prefer Vanco, PICC line today 5. Continue colchicine 6. Encourage incentive spirometry. Encourage continued smoking cessation 7. Increase activity, ambulate in hallway 8. Patient to shower daily. Dressing change daily and PRN 9. Continue CIWA protocol. Encourage cessation of ETOH for now 10. Continue with post op lifting restrictions 11. Pain control with current medication regimen. 12. Management of other comorbidities per primary care service 13. More recommendations to follow Time with Patient: Greater than 30
[2020-01-30] MEDS ORDERED: LIDOCAINE 1% INJ 10MG/ML (20 ML MDV) SQ ONE (09:26)
--- NOTE | 2020-01-30 10:00 | ECHOF ---
Referral Reason:effusion MEASUREMENTS -------- HEIGHT: 182.9 cm WEIGHT: 78.0 kg BP: FINDINGS -------- Sinus rhythm. Echo done 01/16/20: CABG x 5 01/17/20: Limited Echo 01/27/20 For Pericardial Effusion: Li mited Echo 01/30/20 for Pericardial Effusion. There is a moderate pericardial effusion located near the left ventricle. Predominantly, posterior a nd lateral, moderate effusion CONCLUSIONS -------- 1. Sinus rhythm. 2. Echo done 01/16/20: CABG x 5 01/17/20: Limited Echo 01/27/20 For Pericardial Effusion: Limited Echo 01/30/20 for Pericardial Effusion. ALLERGIST/MD: Anastasia Ring RDCS
[2020-01-30 11:09] VITALS: PULSE 76; RESP 18; TEMP 98.2
[2020-01-30] MEDS: amLODIPine 5 MG TAB PO SCH (12:25)
--- NOTE | 2020-01-30 12:59 | P.PN ---
Subjective Progress Note Date: 01/30/20 Principal diagnosis: CAD and status post CABG This is a very pleasant 44-year-old gentleman with a past medical history significant for coronary artery disease and status post coronary artery bypass grafting, cardiomyopathy was EF between 40-45%, as well as history of alcohol ab use presented to the hospital complaining of chest discomfort. He was just discharged from the hospital after he was admitted with acute coronary syndrome complicated by cardiac arrest. Subsequently an emergent heart catheterization was performed and revealed severe triple-vessel coronary artery disease. The patient underwent after that coronary artery bypass grafting and he was discharged from the hospital in stable medical condition on day #5. Unfortunately he started drinking again. This past Monday he drank about 6 beers. He presented back with a chest discomfort, in the mid of the chest, as a sharp kind of discomfort worse with deep breath and better with resting. Currently the patient is chest pain-free. He was seen earlier by the cardiothoracic surgical team and a culture from the wound at the sternal was placed. Beside that an echocardiogram was performed and revealed moderate pericardial effusion. He was started on colchicine. I'm going to stop the heparin on him at this point. We'll continue following up with the patient. Beside that the EKG showed sinus rhythm with diffuse nonspecific ST and T wave abnormalities. The troponin was checked and came in to be slightly abnormal across support. The chest x-ray did not show any acute abnormalities. The patient was seen today, January [id number]. He is feeling better. No more chest pain. No shortness of breath. No dizziness or lightheadedness or syncope. Repeated echo continues to show a moderate pericardial effusion. He has been maintaining normal sinus mechanism. He is going to be discharged home on oral amiodarone. Objective - Vital Signs Vital signs: Vital Signs Temp 98.2 F 01/30/20 08:00 Pulse 76 01/30/20 08:00 Resp 18 01/30/20 08:00 BP 115/73 01/30/20 08:00 Pulse Ox 98 01/30/20 08:00 Intake & Output 01/29/20 01/30/20 01/30/20 18:59 06:59 18:59 Intake Total 400 600 Balance 400 600 Weight 76.6 kg Intake: Oral 400 600 Other: Voiding Method Toilet Toilet Urinal Urinal # Voids 3 1 # Bowel Movements 2 - Constitutional General appearance: Present: no acute distress - Respiratory Respiratory: bilateral: CTA - Cardiovascular Rhythm: regular Heart sounds: normal: S1, S2 - Labs CBC & Chem 7: 01/30/20 06:26 01/30/20 06:26 Labs: Abnormal Lab Results - Last 24 Hours (Table) 01/30/20 01/30/20 Range/Units 06:26 06:26 RBC 3.26 L (4.30-5.90) m/uL Hgb 9.7 L (13.0-17.5) gm/dL Hct 31.5 L (39.0-53.0) % MCHC 30.9 L (31.0-37.0) g/dL Plt Count 663 H (150-450) k/uL Glucose 120 H (74-99) mg/dL Microbiology - Last 24 Hours (Table) 01/28/20 08:00 Gram Stain - Final Other - Other Wound Culture - Final 01/28/20 17:00 Blood Culture - Preliminary Blood No Growth after 24 hours Assessment and Plan Assessment: Assessment #1 status post coronary artery bypass grafting #2 severe triple-vessel coronary artery disease #3 atypical/pleuritic chest discomfort #4 possible pericarditis #5 paroxysmal atrial fibrillation Plan #1 continue the current medical regimen #2 the patient is going to be discharged home
--- NOTE | 2020-01-30 15:53 | IR ---
PICC LINE PLACEMENT: HISTORY: Infection requiring long-term antibiotic therapy PROCEDURE: Ultrasound and fluoroscopic guidance of PICC line placement. COMPLICATIONS: None ANESTHESIA: 1. 1% Lidocaine locally. FINDINGS/TECHNIQUE: The procedure was explained to the patient. The risks, complications, benefits and alternatives were discussed and any questions were answered. Informed consent was obtained. The patient was placed supine on the fluoroscopic table and prepped and draped in the usual sterile fash ion. Utilizing a 21 gauge needle and sonographic and fluoroscopic guidance, access in the left basi lic vein was achieved and there is placement of a 0.018 guidewire. The vein is patent. A 4-F sheath was placed over the guidewire. The guidewire and dilator were removed and a 4-F. PICC line was plac ed through the sheath with the tip at the level of the SVC. The sheath was removed, the catheter was flushed and sutured into position. The patient was stable throughout the procedure and remained sta ble upon discharge from the Department of Radiology. The vein puncture was patent under ultrasound. A coleman scale image was obtained to document patency of the vein punctured. All elements of the maximal barrier technique were utilized. FLUOROSCOPY TIME: 0.1 minute and one images submitted IMPRESSION: Successful PICC line placement under ultrasound and fluoroscopic guidance.
--- NOTE | 2020-01-30 16:17 | PN ---
PROGRESS NOTE DATE OF SERVICE: 01/30/2020 REASON FOR FOLLOWUP: Chest wall cellulitis. INTERVAL HISTORY: The patient is currently afebrile, has been breathing comfortably. Denies having any chest pain or shortness of breath or cough. Overall drainage from the central incision has decreased. No nausea, no vomiting, no diarrhea. PHYSICAL EXAMINATION: Blood pressure 115/73 with a pulse of 76, temperature 98.2. He is 98% on room air. General description is a middle-aged male up in the chair in no distress. RESPIRATORY SYSTEM: Unlabored breathing. Clear to auscultation anteriorly. HEART: S1, S2. Regular rate and rhythm. ABDOMEN: Soft. No tenderness. LABS: Hemoglobin 9.7, white count 9.7, BUN of 13, creatinine 1.05. The wound cultures are so far negative for any resistant pathogen. Blood culture has been negative. DIAGNOSTIC IMPRESSION AND PLAN: Patient with chest wall cellulitis with recent bypass surgery and some drainage. Cultures were negative for any resistant pathogen. Plan is to finish therapy with IV cefazolin 2 grams for 2 weeks and close outpatient followup. MMODL / IJN: [id number] /
[2020-01-30 16:41] VITALS: BP 113/66
--- NOTE | 2020-01-30 20:28 | P.DS ---
Providers Date of admission: 01/28/20 15:04 Expected date of discharge: 01/30/20 Attending physician: Gadiel Aguiar Consults: 01/26/20 18:12 Consult Physician Routine Consulting Provider: Pardeep Lorenz Consult Reason/Comments: Recent quintuple bypass Do you want consulting provider notified?: Already Contacted Consult Physician Urgent Consulting Provider: Michael Jj Consult Reason/Comments: Chest pain post quintuple bypass Do you want consulting provider notified?: Already Contacted 01/28/20 13:34 Consult Physician Routine Consulting Provider: Jaden Dwyer Consult Reason/Comments: superficial sternal drainage Do you want consulting provider notified?: Yes Primary care physician: Wesley Hoffman [place] [facility] Course: Chief Complaint: Left chest sharp pain History of presenting complaint: This is a pleasant 44-year-old patient of Dr. Wesley Hoffman. Recently in the hospital from January 15, through January 21. Patient was admitted with ST elevation microinfarction also had the V. fib arrest with 2 minutes of code time. Cardiac catheterization was done urgently that showed diffuse disease. Patient status post coronary bypass. Patient had been smoking up to the event and also drinking alcohol. Patient now presents with left sharp pain below the left infraclavicular area. Increase with deep breathing. His cough. Some clear sputum. He did try a couple of beers yesterday. Otherwise he had been doing okay at home. Breathing and otherwise has been stable. No cough swelling. No fever no chills. There is some drainage from the chest wall sternal incision site. Cultures were sent off today. Patient earlier had been somewhat shaky. Anxious. Admitted with vital pleurisy. Also infection of the sternal incision. On IV An cef. Also went into A. fib with rapid ventricular. Put on IV amiodarone. Patient also has pericardial effusion felt to have pericarditis. Today-less drainage from the incision site. Feeling better. Heart rate better controlled. Has been out of bed.. Eating well. Had a long talk with the patient and . Questions answered. IV Ancef for home. PICC line in place. Cultures remain negative Discussion and discharge planning more than 35 minutes Consultation: Dr. Dwyer from ID Dr. Lorenz from [facility] Physical examination: VITAL SIGNS: 98.2, 76, 18, 115/73, 98% room air GENERAL: Sitting on a chair, slightly anxious, EYES: Pupils equal. Conjunctiva normal. HEENT: External appearance of nose and ears normal, oral cavity grossly normal. NECK: JVD not raised; masses not palpable. HEART: First and second heart sounds are normal; no edema. LUNGS: Respiratory rate normal; slightly decreased breath sounds. CHEST wall: Lower sternum incision with a slight drainage ABDOMEN: Soft, nontender, liver spleen not palpable, no masses palpable. PSYCH: Alert and oriented x3; mood and affect anxious INVESTIGATIONS, reviewed in the clinical context: White count 9.7 hemoglobin 9.7 Wound cultures-negative Previous testing White count 14.6 hemoglobin 10.7 platelets 541 potassium 4.4 creatinine 0.97 Troponin I 0.118, 0.138, 0.171 ProBNP 1490, LDL 48 EKG tracing personally reviewed by me-flipped T waves in V2 through V6 Chest x-ray film personally reviewed by me-some cardiomegaly, no infiltrates Pro-calcitonin 0.21 Assessment: -Patient presented to sharp left infraclavicular chest pain and some pleuritic nature slight cough. Possibly vital pleurisy. -Pericardial effusion moderate with pericarditis -Acute sternal incision infection with cellulitis and drainage.-With cultures negative -CABG -Mild hypoalbuminemia reactive -Acute postprocedure blood loss anemia as expected from surgery -Reactive thrombocytosis -Paroxysmal atrial fibrillation currently atrial fibrillation -Chronic alcohol disorder -Early alcohol withdrawal syndrome.-Improved Disposition: Home Patient Condition at Discharge: Stable Plan - Discharge Summary Discharge Rx Participant: Yes New Discharge Prescriptions: New ceFAZolin [Kefzol] 2 gm IVP Q8HR #42 vial No Action amLODIPine [Norvasc] 5 mg PO DAILY@1200 #30 tab Acetaminophen Tab [Tylenol] 1,000 mg PO Q6HR PRN tab PRN Reason: Fever And/ Or Pain Amiodarone [Cordarone] See Taper PO DIRECTED Aspirin 325 mg PO DAILY@0800 Atorvastatin [Lipitor] 80 mg PO DAILY@0800 Clopidogrel [Plavix] 75 mg PO DAILY@0800 Metoprolol Tartrate [Lopressor] 50 mg PO BID@0800,2000 Multivitamins, Thera [Multivitamin (formulary)] 1 tab PO DAILY@0800 Pantoprazole [Protonix] 40 mg PO AC-BRKFST@0800 Discharge Medication List Acetaminophen Tab [Tylenol] 1,000 mg PO Q6HR PRN tab 01/22/20 [Rx] amLODIPine [Norvasc] 5 mg PO DAILY@1200 #30 tab 01/22/20 [Rx] Amiodarone [Cordarone] See Taper PO DIRECTED 01/26/20 [History] Aspirin 325 mg PO DAILY@79901/26/20 [History] Atorvastatin [Lipitor] 80 mg PO DAILY@79901/26/20 [History] Clopidogrel [Plavix] 75 mg PO DAILY@79901/26/20 [History] Metoprolol Tartrate [Lopressor] 50 mg PO BID@799,199901/26/20 [History] Multivitamins, Thera [Multivitamin (formulary)] 1 tab PO DAILY@79901/26/20 [History] Pantoprazole [Protonix] 40 mg PO AC-BRKFST@79901/26/20 [History] ceFAZolin [Kefzol] 2 gm IVP Q8HR #42 vial 01/30/20 [Rx] Follow up Appointment(s)/Referral(s): Simeon Burns MD [STAFF PHYSICIAN] - 02/12/20 10:00 am Raj Foster MD [STAFF PHYSICIAN] - 02/14/20 9:45 am [facility] ,Cardiac [NON-STAFF] - 4 Weeks (You will be called approximately 4-6 weeks after surgery for evaluation for cardiac rehab) Pardeep Lorenz MD [STAFF PHYSICIAN] - 02/07/20 10:00 am Kori Horowitz PAC [PHYSICIAN [facility]GUILLON DEBEADER] - 02/11/20 10:00 am Wesley Hoffman MD [Primary Care Provider] - 01/30/20 9:30 am [facility] [place], [NON-STAFF] - Jaden Dwyer MD [STAFF PHYSICIAN] - 1 Week Ambulatory/Diagnostic Orders: Basic Metabolic Panel [LAB.AMB] Location: None Selected C Reactive Protein [LAB.AMB] Location: None Selected Complete Blood Count w/diff [LAB.AMB] Location: None Selected Erythrocyte Sedimentation Rate [LAB.AMB] Location: None Selected Activity/Diet/Wound Care/Special Instructions: DISCHARGE INSTRUCTIONS: 1. No driving for 4 weeks, or until physician gives their ok. 2. The patient should sleep in their own bed, no medical bed needed. 3. Stairs are not an issue. If the bedroom is upstairs, it is advised that the patient go up at night and down in the morning for the first week. Go slowly, using handrail and take 1 step at a time. 4. LARRY hose are to be worn for 30 days or until physician discontinues. 5. Heart hugger is to be worn 100% of the time until physician discontinues.(except when showering) 6. No lifting, pushing, or pulling more than 10 pounds for 12 weeks. The physician will advise of any restriction changes. 7. The patient is expected to continue the prescribed walking program. 8. Continue pain control per as needed orders. 9. Continue with incentive spirometry and splinting/heart hugger until otherwise directed by the physician. 10. Must shower daily using liquid antibacterial soap and a separate white washcloth for each individual incision. 11. Routine sternal incision care. No powders, lotions, ointments on incisions. No dressings are necessary on incisions unless they are draining. Dermabond tape is to remain on sternal incision until surgeon follow-up. 12. Please call surgeon/GENERAL ASSIGNMENT REPORTER for temp greater than 101 F or purulent drainage from incisions. 13. All prescriptions given by surgeon for 30 days. Refills need to be filled through parts person/primary care physician. 14. A Red armband has been placed on the patient. It should be worn for 30 days post surgery and will be removed by the cardiac surgeons. If an ER visit is necessary, please make sure the number on the Red armband is called. 15. You have been referred to and are expected to begin Cardiac Rehab in approximately 4-6 weeks. 16. The importance of smoking cessation was discussed with the patient. HOME HEALTH SERVICES TO PROVIDE: RN SKILLED HOME CARE SERVICES FOR POST-OP SURGICAL PATIENTS WITH THE FOLLOWING: Coronary Artery Bypass Surgery (CABG), Mitral Valve Replacement/Repair ( MVR), Aortic Valve Replacement/Repair (AVR) RN TO CONTINUE EDUCATION FROM ``ROAD TO A HEALTH HEART PATIENT EDUCATION MANUAL (GIVEN TO PATIENT IN THE HOSPITAL) MEDICATION RECONCILIATION WITH EDUCATION NEEDED ON FIRST HOME VISIT EMPHASIZE IMPORTANCE OF WEARING BREAST SUPPORT/HEART HUGGER ENCOURAGE USE OF INCENTIVE SPIROMETER 10 X EVERY HOUR WHILE AWAKE ENCOURAGE UTILIZATION OF LOWER EXTREMITY COMPRESSION STOCKINGS/LARRY HOSE and ELEVATE LEGS ABOVE LEVEL OF HEART WHILE AT REST. ENCOURAGE AMBULATION 3-5x/day INCREASING TOLERATES, WHILE AVOIDING EXTREMES IN TEMPERATURE FREQUENCY: RN TO OPEN THE PATIENT WITHIN 24 HOURS OF DISCHARGE FROM THE HOSPITAL WITH TELEHEALTH INSTALLED AT [facility], RN TO VISIT 2-3 X A WEEK FOR 4 WEEKS ESTABLISHED BY PATIENT NEEDS. LABORATORY: CBC, CMP TO BE DRAWN ON THE THIRD DAY HOME, (RAN STAT) FAX RESULTS TO [phone] TELEHEALTH PARAMETERS: WEIGHT: NOTIFY MD OF WEIGHT GAIN OF 2 LBS IN 24 HOURS OR 5 LBS IN ONE WEEK HR: NOTIFY MD OF HR <55 BPM OR HR>100 BPM BP: NOTIFY MD IF BP <90/55 OR BP>140/100 O2 SAT: NOTIFY MD IF PO2<93% ON ROOM AIR SEND TELEHEALTH REPORT TO UNIT SECRETARY AND CARDIOVASCULAR SURGEON THE FIRST WEEK OF CARE AND THEN BI-WEEKLY. PLEASE ADDITIONALLY COMMUNICATE ANY ABNORMALS AND NEW FINDINGS TO THE SURGEONS OFFICE. For any questions or concerns please call sports clerk Venus @ or Itz @ Discharge Disposition: HOME SELF-CARE
== END 2020-01-30 16:50 | disposition home or self-care (01) | DRG 862 ==
LOC: EC 16:30 → 3SCARD 18:12 → OBSVTOIN 01-28 15:04
PROVIDERS: ADMIT Hospitalist; ATTEND Hospitalist
PROC: 02HV33Z Insertion of Infusion Device into Superior Vena Cava, Percutaneous Approach (ICD-10-PCS; principal; 2020-01-30 09:15)
DX: T81.49XA Infection following a procedure, other surgical site, initial encounter (principal); I21.3 ST elevation (STEMI) myocardial infarction of unspecified site; I42.9 Cardiomyopathy, unspecified; F10.239 Alcohol dependence with withdrawal, unspecified; L03.313 Cellulitis of chest wall; I31.3 Pericardial effusion (noninflammatory); J98.11 Atelectasis; I31.9 Disease of pericardium, unspecified; I25.10 Atherosclerotic heart disease of native coronary artery without angina pectoris; D50.0 Iron deficiency anemia secondary to blood loss (chronic); E88.09 Other disorders of plasma-protein metabolism, not elsewhere classified; G89.29 Other chronic pain; M54.5 Low back pain; R09.1 Pleurisy; I48.0 Paroxysmal atrial fibrillation; Z11.59 Encounter for screening for other viral diseases; Z82.49 Family history of ischemic heart disease and other diseases of the circulatory system; Z87.891 Personal history of nicotine dependence; Z95.1 Presence of aortocoronary bypass graft; Z79.899 Other long term (current) drug therapy; Z79.02 Long term (current) use of antithrombotics/antiplatelets; Z79.2 Long term (current) use of antibiotics; Z79.82 Long term (current) use of aspirin
CPT/HCPCS: 36415; 36573; 71046; 71275; 80048; 80053; 80061; 82550; 83735; 83880; 84145; 84484; 85025; 85027; 85379; 85610; 85730; 87040; 87070; 87075; 87205; 93005; 93308; 99285

== ENCOUNTER → 2020-02-21 | Outpatient (CLI) | payer BC ==
--- NOTE | 2020-02-21 15:52 | CT ---
EXAMINATION TYPE: CT chest w con DATE OF EXAM: 02/21/2020 COMPARISON: 01/26/2020 HISTORY: Cellulitis of chest wall CT DLP: 557 mGycm, Automated exposure control for dose reduction was used. CONTRAST: Performed injected with 100 mL of Isovue 300. TECHNIQUE: Axial images were obtained at 5 mm thick sections. Reconstructed images are reviewed on [employer] computer in the coronal plane. FINDINGS: Portion of the thyroid visualized is normal. Compressive atelectasis is at the left base. Some streak atelectasis may be at the right base. No enlarged mediastinal or hilar adenopathy is evident. Axillary adenopathy is present bilaterally. The ascending aorta diameter at the level of the main pulmonary artery is 3.9 cm. The main pulmonary artery diameter at the bifurcation is 2.6 cm. There is a pericardial effusion present. Small left pl eural effusion and minimal right pleural effusion is present. Limited CT sections are obtained through the upper abdomen. There is a complex cyst within the value stream coach ior right superior lobe of liver measuring 1.4 cm. IMPRESSIONS: 1. Left lower lobe compressive atelectasis or pneumonia. 2. Small left and minimal right pleural effusion. 3. No suspicious changes suggest cellulitis of the chest wall are not identified.
== END | disposition home or self-care (01) ==
LOC: RADCTMAIN 10:09
PROVIDERS: ATTEND Internal Medicine Infectious Disease
DX: J90 Pleural effusion, not elsewhere classified (principal)
CPT/HCPCS: 71260; Q9967

== ENCOUNTER 2024-10-21 14:33 | Emergency (ER) | payer BC ==
[2024-10-21] MEDS: ASPIRIN 81 MG PO STA (15:09)
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
--- NOTE | 2024-10-21 15:12 | XR ---
EXAMINATION TYPE: XR chest 2V DATE OF EXAM: 10/21/2024 3:07 PM COMPARISON: 03/10/2020 CLINICAL INDICATION: Male, 49 years old with history of Chest Pain, , TECHNIQUE: PA and lateral views FINDINGS: Heart normal size. Median sternotomy wires and post-CABG clips. Mild hyperinflation. There is patchy opacity at the posterior lung base on the lateral view. Upper and mid lungs are clear. No pleural eff usion. IMPRESSION: COPD. Either patchy atelectasis versus developing pneumonia involving the posterior lung base on the lateral view. [facility], Workstation: [id number], 10/21/2024 3:10 PM
[2024-10-21 15:16] LABS: Basophils # (A) 0.04 10*3/uL (0.00-0.10); Basophils % (A) 0.6 %; Eosinophils # (A) 0.16 10*3/uL (0.04-0.35); Eosinophils % (A) 2.4 %; HCT 44.2 % (39.6-50.0); HGB 15.3 g/dL (13.0-17.0); Lymphocytes # (A) 2.36 10*3/uL (0.90-5.00); Lymphocytes % (A) 35.2 %; MCH 33.2 pg (27.0-32.0); MCHC 34.6 g/dL (32.0-37.0); MCV 95.9 fL (80.0-97.0); Mean Platelet Volume 9.8 fL (9.5-12.2); Monocytes # (A) 0.44 10*3/uL (0.20-1.00); Monocytes % (A) 6.6 %; Neutrophils # (A) 3.69 10*3/uL (1.80-7.70); Neutrophils % (A) 54.9 %; Platelet Count 222 10*3/uL (140-440); RBC 4.61 10*6/uL (4.40-5.60); RDW 13.6 % (11.5-14.5); WBC 6.71 10*3/uL (4.50-10.00)
[2024-10-21 15:25] LABS: Partial Thromboplastin Time 25.9 sec (22.0-30.0); Prothrombin Time 10.7 sec (10.0-12.5)
[2024-10-21 15:28] LABS: ALT 25 U/L (4-49); AST 23 U/L (17-59); African American GFR (CKD) >90 (>60 ml/min/1.73 sqM); Albumin 4.3 g/dL (3.5-5.0); Alkaline Phosphatase 52 U/L (38-126); Anion Gap 7 mmol/L; Blood Urea Nitrogen 15 mg/dL (9-20); Calcium 9.7 mg/dL (8.4-10.2); Carbon Dioxide 25 mmol/L (22-30); Chloride 106 mmol/L (98-107); Glucose 141 mg/dL (74-99); Magnesium 2.1 mg/dL (1.6-2.3); Non-African American GFR(CKD) >90 (>60 ml/min/1.73 sqM); Potassium 4.2 mmol/L (3.5-5.1); Sodium 138 mmol/L (137-145); Total Bilirubin 1.3 mg/dL (0.2-1.3); Total Protein 7.3 g/dL (6.3-8.2)
[2024-10-21 19:15] VITALS: BP 137/97; PULSE 63; RESP 18; TEMP 98.3
== END 2024-10-21 19:37 ==
LOC: EC 14:33
DX: R07.9 Chest pain, unspecified (principal); I24.9 Acute ischemic heart disease, unspecified; I25.10 Atherosclerotic heart disease of native coronary artery without angina pectoris; Z87.891 Personal history of nicotine dependence; Z88.1 Allergy status to other antibiotic agents
CPT/HCPCS: 36415; 71046; 80053; 83735; 84484; 85025; 85610; 85730; 93005; 99285